=== PATIENT | male | born 1980 | race Caucasian/White ===

== ENCOUNTER 2020-05-23 14:38 | Emergency (ER) | payer OTHER, SELFPAY ==
[2020-05-23 14:40] VITALS: BP 160/98; PULSE 112; RESP 19; TEMP 36.6; O2SAT 97; BMI 31.8
--- NOTE | 2020-05-23 15:29 | ED.DCSUM_ITS ---
- ER Visit Summary Date of Service: 05/23/20 Chief Complaint: Fever History of Present Illness: The patient is a 40 M who presents with fever that began 5 days ago. Patient states his fever was up to 103 last night. Patient admits to some sharp pain in his chest. Patient states this occurs when he takes a deep breath. Patient admits to a cough but denies any sputum. Patient denies any nausea or vomiting. Patient states his fevers get better with Tylenol but then come back when the Tylenol wears off. Patient states he recently tested positive for COVID-19. Physical Examination: Vital signs are stable. Patient is afebrile. Patient is in no acute distress. Oral mucosa is pink and moist. Neck is supple. Trachea is midline. There is no JVD noted. Heart was regular rate and rhythm. Lungs are clear and equal bilaterally. Abdomen is soft. Bowel sounds are normal. There is no tenderness. There is no rebound or guarding noted. Skin is warm dry. Cranial nerves II through XII are intact. There are no focal motor or sensory deficits noted. Extremities are intact. There is no calf tenderness or edema. Test Results: Portable chest x-ray was obtained. There is 1 view. On my interpretation, there is early infiltrate in the left lung base. Bony thorax is normal. There is no cardiomegaly. Radiologist also interpreted the x-ray and agrees. CBC shows white blood cell count of 2.9. Comprehensive metabolic profile was essentially within normal limits. Emergency Department Course and Treatment: Patient was given albuterol inhaler here. Patient was instructed to continue using his inhaler as needed. Patient was instructed to follow-up with his primary care physician in 5 to 7 days. Patient understood and was agreeable with the plan. All questions were answered. Disposition: Discharge home Impression: COVID-19 pneumonia This note was generated with [employer] dictation software. It may contain incorrect words, spelling, and punctuation that were not noted in review of the chart prior to signing ED Disposition - Plan for ED Patient: Disposition: Home or Assisted Living Diagnosis: Pneumonia due to COVID-19 virus Instructions: Coronavirus Disease 2019 (COVID-19): Overview Referrals: Macario Sinha MD [Primary Care Provider] - 3-5 Days
--- NOTE | 2020-05-23 15:35 | RAD_ITS ---
STUDY: X-RAY CHEST REASON FOR EXAM: Male, 40 years old. PT WAS COVID POSITIVE ON SUNDAY. REPORTS CONSTANT FEVER, CHEST ACHING, COUGH TECHNIQUE: AP COMPARISON: None. FINDINGS: Lungs are underexpanded with patchy reticular densities in the bilateral lung bases. There is no demonstrated pleural abnormality. Normal size heart. Normal mediastinum and sid. Normal visualized pulmonary arteries. Normal visualized aortic arch and descending thoracic aorta. Normal visualized thoracic spine. Normal visualized ribs, clavicles, and shoulders. There is no demonstrated abnormality of the visualized soft tissue structures of the upper abdomen. RAD/Chest 1 View (Portable) IMPRESSION: Early infiltrate or atelectasis of the lung bases. Electronically Signed: Gilberto Schneider MD ([place]) at 16:04 EST , Service support ,
[2020-05-23 16:17] LABS: Absolute Lymphocyte Count 0.52 X10^3/uL (0.83-4.51); Absolute Neutrophil Count 2.2 X10^3/uL (2.0-7.7); Basophil# 0.01 X10^3/uL; Basophil% 0.3 % (0-1); Hemoglobin 14.6 g/dL (13.0-16.5); Lymphocyte # 0.52 X10^3/ul (4.0); Lymphocyte % 18.1 % (19-41); Mean Corp Hgb Conc 34.8 g/dL (32-36); Mean Corpuscular Hgb 29.5 pg (27.0-32.0); Mean Corpuscular Volume 84.8 fL (80-94); Mean Platelet Vol. 9.7 fl (6.2-12.0); Monocyte# 0.19 X10^3/uL; Monocyte% 6.6 % (0-10); NRBC Flagged by Analyzer 0 % (0-5); Neutrophil # 2.15 X10^3/uL (2.7-7.7); Neutrophil % 74.7 % (47-70); POSITIVE DIFFERENTIAL YES; Platelet Count 170 K/mm3 (150-450); RBC Distribution Width CV 13.1 % (11.6-14.6); RBC Distribution Width SD 40.5 fl (35.1-43.9); Red Blood Count 4.95 M/mm3 (4.6-6.2); White Blood Count 2.9 K/mm3 (4.4-11.0)
[2020-05-23 16:26] LABS: ALB/GLOB Ratio 0.9 RATIO (0.9-2.4); AST(SGOT) 56 U/L (15-37); Alanine Aminotransfer ALT/SGPT 72 U/L (16-61); Albumin, Serum 3.8 g/dL (3.2-5.0); Alkaline Phosphatase 45 U/L (45-117); Anion Gap 4 (5-15); BUN 10 mg/dL (7-18); BUN/Creat Ratio 9.4 RATIO (10-20); Calcium,Total 8.2 mg/dL (8.5-10.1); Chloride 104 mmol/L (98-107); Creatinine, Serum 1.06 mg/dL (0.70-1.30); EST Glomerular Filtration Rate 81 mL/min (>60); Est Glom Filt Rate - Afr Amer 98 mL/min (>60); Estimated Creatinine Clearance 78.97 ml/min; Globulin 4.1 g/dL (2.2-4.2); Glucose 97 mg/dL (74-106); Potassium 3.4 mmol/L (3.5-5.1); Protein, Total 7.9 g/dL (6.4-8.2); Sodium Level 138 mmol/L (136-145)
[2020-05-23 16:27] LABS: Differential Indicated SCAN CRITERIA MET
[2020-05-23 16:54] LABS: Differential Comment SCANNED
[2020-05-23] MEDS: Acetaminophen 500 MG Tablet 1000 MG PO (18:03)
[2020-05-23 18:10] VITALS: BP 143/86; PULSE 104; RESP 18; O2SAT 96
[2020-05-23 18:11] VITALS: BP 143/86; PULSE 104; RESP 18; O2SAT 96
[2020-05-24 13:29] LABS: Pathologist Review Reviewed
== END 2020-05-23 18:52 | disposition home or self-care (01) ==
PROVIDERS: Emergency Provider Emergency Medicine; PCP Family Medicine
DX: U07.1 COVID-19 (principal); J12.82 Pneumonia due to coronavirus disease 2019; I10 Essential (primary) hypertension
CPT/HCPCS: 36415; 71045; 80053; 85025; 99283

== ENCOUNTER 2020-05-27 09:12 | Inpatient (IN) | payer OTHER, SELFPAY ==
[2020-05-27] VITALS (13 sets, daily range): BP systolic 120–135; BP diastolic 72–86; PULSE 84–88; RESP 16–32; TEMP 36.1–37.8; O2SAT 85–92; BMI 31.6; BMI 32.2
--- NOTE | 2020-05-27 09:43 | RAD_ITS ---
STUDY: X-RAY CHEST REASON FOR EXAM: Male, 40 years old. DIAGNOSED WITH COVID ON SUNDAY, LEFT LUNG PNEUMONIA, SOB TECHNIQUE: Single AP portable view of the chest. COMPARISON: Comparison is made with prior study dated 05/23/2020. FINDINGS: EKG electrodes are seen. There now is evidence of bilateral pulmonary infiltrates at the lung bases. There is no demonstrated pleural abnormality. Normal size heart. Normal mediastinum and sid. Normal visualized pulmonary arteries. Normal visualized aortic arch and descending thoracic aorta. Normal visualized thoracic spine. Normal visualized ribs, clavicles, and shoulders. There is no demonstrated abnormality of the visualized soft tissue structures of the upper abdomen. RAD/Chest 1 View (Portable) IMPRESSION: New bilateral pulmonary infiltrates at the lung bases. Electronically Signed: Armando Villafuerte MD at 10:30 EST , Service support ,
--- NOTE | 2020-05-27 09:43 | EKG12_ITS ---
Test Reason : SOB Blood Pressure : / mmHG Vent. Rate : 084 BPM Atrial Rate : 084 BPM P-R Int : 184 ms QRS Dur : 102 ms QT Int : 382 ms P-R-T Axes : 007 039 002 degrees QTc Int : 451 ms Normal sinus rhythm Normal ECG Confirmed by GENNARO HAGER, MIGUEL ANGEL ([id number]), financial economist [employer] ([id number]) on 06/01/2020 10:41:35 AM Referred By: KENDRICK Confirmed By:MIGUEL ANGEL BURDICK MD
--- NOTE | 2020-05-27 09:49 | ED.VISSUMM ---
- ER Visit Summary Date of Service: 05/27/20 Chief Complaint: This of breath after being diagnosed with COVID-19 approximately 1 week ago. History of Present Illness: The patient is a 40 M history of hypertension. Diagnosed with COVID-19 1 week ago. Patient was seen in the emergency department diagnosed with Covid pneumonia over the weekend. States he is just getting more short of breath. Currently is on no medications for the Covid. Says his pulse ox at home is running 85% and his temperatures been between 101 - 103. Physical Examination: White male vital signs stable except pulse ox 85% on room air consistent with hypoxia. H EENT exam unremarkable. Neck nontender no lymphadenopathy. Lungs clear to auscultation bilaterally. Heart regular rhythm no murmur. Abdomen soft nontender normal bowel sounds no peritoneal signs. Extremities moves all 4. Calves nontender no edema no cords. Neurologically is awake alert with no focal motor deficits. Test Results: White count of 6. Hemoglobin 13. No bands chemistries unremarkable normal creatinine and gap. EKG normal sinus rhythm rate 84 no acute signs of RI or ischemia. Chest x-ray portable 1 view shows bilateral lower lobe infiltrates substantially worse appearing than the prior chest x-ray 4 days ago. I did go over test results with the patient. Emergency Department Course and Treatment: 40 yo male with COVID-19 pneumonitis now hypoxic. Treatment Plan: Repeat exam no change. Patient was treated with IV Decadron. Discussed patient with hospitalist prior to admission. Disposition: Admission Impression: COVID-19 pneumonitis Hypoxia History of hypertension This note was generated with [employer] dictation software. It may contain incorrect words, spelling, and punctuation that were not noted in review of the chart prior to signing ED Disposition - Plan for ED Patient: Referrals: Macario Sinha MD [Primary Care Provider] -
[2020-05-27 09:59] LABS: Absolute Neutrophil Count 6.1 X10^3/uL (2.0-7.7); Basophil# 0.01 X10^3/uL; Basophil% 0.1 % (0-1); Eosinophil# 0.01 X10^3/uL; Eosinophils% 0.1 % (0-5); Hematocrit 40.2 % (40-54); Hemoglobin 13.4 g/dL (13.0-16.5); Lymphocyte % 5.8 % (19-41); Mean Corp Hgb Conc 33.3 g/dL (32-36); Mean Corpuscular Hgb 28.1 pg (27.0-32.0); Mean Corpuscular Volume 84.3 fL (80-94); Mean Platelet Vol. 9.6 fl (6.2-12.0); Monocyte# 0.28 X10^3/uL; Monocyte% 4.1 % (0-10); NRBC Flagged by Analyzer 0 % (0-5); Neutrophil # 6.12 X10^3/uL (2.7-7.7); Neutrophil % 89.2 % (47-70); POSITIVE DIFFERENTIAL YES; Platelet Count 240 K/mm3 (150-450); RBC Distribution Width CV 13.2 % (11.6-14.6); RBC Distribution Width SD 41.1 fl (35.1-43.9); Red Blood Count 4.77 M/mm3 (4.6-6.2); White Blood Count 6.9 K/mm3 (4.4-11.0)
[2020-05-27 10:03] LABS: Differential Indicated SCAN CRITERIA MET
[2020-05-27 10:11] LABS: Anion Gap 6 (5-15); BUN 9 mg/dL (7-18); Calcium,Total 8.8 mg/dL (8.5-10.1); Chloride 101 mmol/L (98-107); EST Glomerular Filtration Rate 98 mL/min (>60); Est Glom Filt Rate - Afr Amer 118 mL/min (>60); Estimated Creatinine Clearance 89.53 ml/min; Glucose 112 mg/dL (74-106); Potassium 3.6 mmol/L (3.5-5.1); Sodium Level 135 mmol/L (136-145)
[2020-05-27 10:48] LABS: Differential Comment SCANNED
[2020-05-27] MEDS: dexAMETHasone 10 MG/ML Vial IV (11:26)
--- NOTE | 2020-05-27 13:19 | HP.PCM_ITS ---
Problem List (1) COVID-19 Status: Acute History of Present Illness Date of Admission: 05/27/20 Chief Complaint: shortness of breath The patient is a 40 year old M presents with shortness of breath. Became sick on the . Myalgias and fatigue. Primary care's office and was checked for COVID-19 and was positive. Patient presented on the to [facility] emergency room and was sent home. Patient just was feeling short of breath and presented again today where he was noted to be hypoxic. Patient received 10 mg of IV dexamethasone and admission requested. Patient is unsure of how he contracted COVID-19 but thinks it may been at work. Patient has family at home are currently under quarantine. [] Past Medical History Medical History: Medical History (Last Updated 05/27/20 @ 13:[address] Jasen Stallings, DO) HTN (hypertension) I10 Allergies erythromycin base Adverse Reaction (Verified 05/27/20 09:14) PT UNSURE OF REACTION Home Medications: Ambulatory Orders Medication Instructions Recorded Hydrochlorothiazide [Hctz] 25 mg PO DAILY 05/23/20 Metoprolol Tartrate [Lopressor 100 mg PO BID 05/23/20 (Beta Hugo)] Smoking Status: Never smoker - *Family History Maternal History Items: - - no asthma Review of Systems Constitutional: Reports: Chills, Fever. Denies: Anorexia Eyes: Denies: Blurred vision, Double vision HEENT: Denies: Head Aches, Sinus Congestion, Sinus Drainage Cardiovascular: Denies: Chest Pain, Palpitations Respiratory: Reports: Shortness of breath upon exertion. Denies: Cough, Shortness of breath at rest, Sputum production Gastrointestinal: Denies: Abdominal Pain, Nausea, Vomiting Genitourinary: Denies: Dysuria Musculoskeletal: Denies: Joint Pain, Joint Tenderness Skin: Denies: Rash, Wounds Neurological: Denies: Numbness, Tingling, Focal weakness Psychiatric: Denies: Anxiety, Depression Hematologic/ Lymphatic: Denies: Easy Bruising, Easy Bleeding, Hx of blood clot Comment: All review of systems were negative except as mentioned above in the history of present illness and the other review of systems. VTE Information - Inpt Only VTE Present on Admission: No VTE Mechan Device Prophylaxis: None VTE Pharm Prophylaxis ordered?: Yes Patient Problems: Active and Suspected Problems (Last Updated 05/27/20 @ 13:[address] Jasen Stallings, DO) COVID-19 (Acute) - Physical Exam Vitals/I&O's: Vital Signs Temp Pulse Resp BP Pulse Ox 36.3 C L 88 27 H 123/77 H 90 05/27/20 13:15 05/27/20 13:15 05/27/20 13:15 05/27/20 13:15 05/27/20 13:15 Oxygen Flow Rate (L/min) 2 Oxygen Delivery Method Nasal Cannula Weight: 83.461 kg Body Mass Index (BMI) 31.6 General: Alert, Cooperative, No apparent distress HEENT: Atraumatic, Normocephalic Oral: Moist Mucosa, No Gingival or Mucosal Lesions/ Ulcerations Neck: No Nodes, Thyroid Normal Size and Texture Lungs: - - LLL crackles. Cardiovascular: Regular rate, Regular Rhythm, Normal S1, Normal S2, No murmurs Abdomen: Bowel Sounds Present, Soft, Non Tender, Non-Distended, No Hepato- splenomegaly Extremities: No edema, No Calf Tenderness Skin: No rashes, No breakdown Musculoskeletal: No Tenderness to Palpation of Joints or Extremities, No Muscle Wasting Psych/Mental Status: Normal Affect, Appropriate Laboratory Results 05/27/20 09:51: WBC 6.9, RBC 4.77, Hgb 13.4, Hct 40.2, MCV 84.3, MCH 28.1, MCHC 33.3, RDW Std Deviation 41.1, RDW Coeff of Barbi 13.2, Plt Count 240, MPV 9.6, Immature Gran % (Auto) 0.700, Neut % (Auto) 89.2 H, Lymph % (Auto) 5.8 L, Dewey % (Auto) 4.1, Eos % (Auto) 0.1, Baso % (Auto) 0.1, Absolute Neuts (auto) 6.1, Absolute Lymphs (auto) 0.40 L, Nucleated RBC % 0, Differential Comment SCANNED 05/27/20 09:51: Sodium 135 L, Potassium 3.6, Chloride 101, Carbon Dioxide 28.0, Anion Gap 6, BUN 9, Creatinine 0.90, Estim Creat Clear Calc 89.53, Est GFR (MDRD) Af Amer 118, Est GFR (MDRD) Non-Af 98, BUN/Creatinine Ratio 10.0, Glucose 112 H, Calcium 8.8 Chest x-ray reviewed and shows some hazy left lower lobe infiltrate. Assessment/Plan All Active Problems (Last Updated 05/27/20 @ 13:[address] Jasen Stallings DO) COVID-19 (Acute) 1. Acute COVID-19 pneumonia: Time of onset was May 18. Patient will continue with dexamethasone for total of 10 days. Patient also be started on remdesivir. Chest x-ray is not as severe as I would suspect his symptoms are some will order a CT angiogram of the chest to evaluate for PE or secondary pneumonia. Patient does have evidence of either those and will treat those accordingly. 2. 2. Acute hypoxic respiratory insufficiency: Currently stable on 2 L. Wean oxygen as able. 3. Hypertension: Stable. Continue with his home medications. 4. VTE prophylaxis: High risk given COVID-19. Enoxaparin during his hospitalization. IMPROVE VTE score 0.5%. Refer to NIH guidelines (https://www.rjcuv16ygucmzhhjbstfpqqgli.nih.gov/adjunctive-therapy/antithromboti c-therapy/) and Chest guidelines (CHEST 2020; 158(3): 2385-7171). However patient does have evidence of pulmonary emboli, then would require proper anticoagulation. Inpatient E&M: 47972 Init Hosp L2
--- NOTE | 2020-05-27 13:41 | CT_ITS ---
STUDY: CTA CHEST REASON FOR EXAM: Male, 40 years old. COVID, PNEUMONIA RADIATION DOSAGE (If Supplied By Facility): CTDIvol = ( 13.70 ) mGy, DLP = ( 558.00 ) mGycm TECHNIQUE: The examination was performed with the intravenous administration of IV 100mL Isovue-370. Post-processing of the angiographic images was performed, with multiplanar reformation and 3D reconstruction. Individualized dose optimization techniques were used for this CT. COMPARISON: Comparison is made with prior chest radiograph done earlier in the day. FINDINGS: Normal enhancement of the main pulmonary artery and right and left pulmonary arteries. Normal enhancement of the bilateral peripheral pulmonary arteries. There is no demonstrated pulmonary embolism. Normal thoracic aorta and visualized great vessels. There is no demonstrated aortic dissection. Normal heart and pericardium. Normal mediastinum. Normal hilar regions. Normal visualized trachea and bronchi. The lungs are well expanded. There is evidence of a multifocal areas of groundglass appearance involving both lungs in a preferential lateral distribution. This is worse in the lower lobes. This is in keeping with the patient''s history of a Covid positive state. Normal pleura. Normal chest wall structures. Normal osseous structures. Normal visualized upper abdomen. CT/CTA Chest W/WO Contrast IMPRESSION: Multifocal bilateral groundglass infiltrates as described. This is in keeping with the patient''s history of Covid. Electronically Signed: Armando Villafuerte MD at 15:03 EST , Service support ,
[2020-05-27 14:44] LABS: Fibrinogen 652 mg/dl (203-444)
[2020-05-27 14:45] LABS: D-Dimer Quantitative (DVT/PE) 0.49 FEU/ug/m (0.27-0.49)
[2020-05-27 14:57] LABS: AST(SGOT) 95 U/L (15-37); Alanine Aminotransfer ALT/SGPT 138 U/L (16-61); Albumin, Serum 3.3 g/dL (3.2-5.0); Alkaline Phosphatase 47 U/L (45-117); Bilirubin, Direct 0.14 mg/dL (0.00-0.30); Protein, Total 8.3 g/dL (6.4-8.2)
[2020-05-27] MEDS: 0.9% Saline Lock 10 ML Syringe IV (15:15)
[2020-05-27] MEDS: Metoprolol Tartrate 100 MG Tablet PO (20:00)
[2020-05-28] VITALS (7 sets, daily range): BP systolic 115–136; BP diastolic 72–80; PULSE 63–85; RESP 18; TEMP 36.7–37.2; O2SAT 92–94
[2020-05-28 05:26] LABS: Hematocrit 39.7 % (40-54); Hemoglobin 13.4 g/dL (13.0-16.5); Mean Corp Hgb Conc 33.8 g/dL (32-36); Mean Corpuscular Hgb 28.9 pg (27.0-32.0); Mean Corpuscular Volume 85.7 fL (80-94); Mean Platelet Vol. 9.3 fl (6.2-12.0); Platelet Count 281 K/mm3 (150-450); RBC Distribution Width CV 13.5 % (11.6-14.6); RBC Distribution Width SD 42.5 fl (35.1-43.9); Red Blood Count 4.63 M/mm3 (4.6-6.2); White Blood Count 5.6 K/mm3 (4.4-11.0)
[2020-05-28 05:54] LABS: ALB/GLOB Ratio 0.7 RATIO (0.9-2.4); AST(SGOT) 99 U/L (15-37); Alanine Aminotransfer ALT/SGPT 147 U/L (16-61); Albumin, Serum 3.1 g/dL (3.2-5.0); Alkaline Phosphatase 47 U/L (45-117); Anion Gap 9 (5-15); BUN 20 mg/dL (7-18); BUN/Creat Ratio 23.4 RATIO (10-20); Calcium,Total 8.7 mg/dL (8.5-10.1); Chloride 99 mmol/L (98-107); Creatinine, Serum 0.86 mg/dL (0.70-1.30); EST Glomerular Filtration Rate 104 mL/min (>60); Est Glom Filt Rate - Afr Amer 126 mL/min (>60); Globulin 4.3 g/dL (2.2-4.2); Glucose 109 mg/dL (74-106); Potassium 3.8 mmol/L (3.5-5.1); Protein, Total 7.4 g/dL (6.4-8.2); Sodium Level 135 mmol/L (136-145)
[2020-05-28] MEDS: dexAMETHasone 4 MG Tablet 6 MG PO (11:30)
[2020-05-28] MEDS: Enoxaparin 40 MG/0.4 ML Syringe SC (11:31)
[2020-05-28] MEDS: hydroCHLOROthiazide 25 MG Tablet PO (11:31)
[2020-05-28] MEDS: Metoprolol Tartrate 100 MG Tablet PO ×2 (11:31→20:20)
--- NOTE | 2020-05-28 11:39 | CASEMGMT ---
RN CM Assessment Note Introduced role of CM to patient via phone to room. Demographics, PCP verified. Pt is awake and able to participate in assessment. Patient states his is also positive and they are able to quarantine at home. They have friends, family who can bring supplies/groceries if needed. COVID TESTING: @ PCP office Diagnosis: COVID 19 PCP: Dr. Macario Sinha Specialists: none Insurance: [employer]. No current insurance card available. Call to who gave ID and GRP. called to [facility] in [place]. Preferred [facility]acy: [facility] Pres[facility] Benefit: yes LNOK: Living Arrangements: Lives independently. No care needs Tranportation: drives DME: none. [employer]. (Call to [employer] and they are able to take [employer] insurance) HHC: none SNF: none Patient DC Goals: DC Plan: anticipate home on discharge. Will need oxygen testing on ra and with exertion prior to dc. SEE GREEN SHEET CM available for discharge planning coordination. Contact CM for any concerns/needs that may arise. Mark LATHAMN RN ACM
[2020-05-28] MEDS: 0.9% Saline Lock 10 ML Syringe IV (11:41)
--- NOTE | 2020-05-28 15:22 | PCM.PN.HOSP ---
Patient Problems: Active and Suspected Problems (Last Updated 05/27/20 @ 13:[address] Jasen Stallings, DO) COVID-19 (Acute) Reason for Visit: COVID 19 Subjective: increased oxygen requirements. Vitals/I&O's: Vital Signs Temp Pulse Resp BP Pulse Ox 36.7 C 85 18 136/77 H 94 05/28/20 11:00 05/28/20 11:31 05/28/20 11:00 05/28/20 11:00 05/28/20 15:20 Oxygen Flow Rate (L/min) 10 Oxygen Delivery Method Nasal Cannula Weight: 85.2 kg Body Mass Index (BMI) 32.2 Intake and Output for Last 24 Hours 05/26/20 05/27/20 05/28/20 23:59 23:59 23:59 Intake Total 650 / 650 Balance 650 / 650 General: Alert, No apparent distress HEENT: Atraumatic, Normocephalic Oral: Moist Mucosa, No Gingival or Mucosal Lesions/ Ulcerations Neck: No Nodes, Thyroid Normal Size and Texture Lungs: Normal air movement, No rhonchi, No wheeze, - - bibasilar crackles Cardiovascular: Regular rate, Regular Rhythm, Normal S1, Normal S2, No murmurs Abdomen: Bowel Sounds Present, Soft, Non Tender, Non-Distended Extremities: No edema, No Calf Tenderness Skin: No rashes, No breakdown Psych/Mental Status: Normal Affect, Appropriate Laboratory Results 05/28/20 05:06: WBC 5.6, RBC 4.63, Hgb 13.4, Hct 39.7 L, MCV 85.7, MCH 28.9, MCHC 33.8, RDW Std Deviation 42.5, RDW Coeff of Barbi 13.5, Plt Count 281, MPV 9.3 05/28/20 05:06: Sodium 135 L, Potassium 3.8, Chloride 99, Carbon Dioxide 27.0, Anion Gap 9, BUN 20 H, Creatinine 0.86, Estim Creat Clear Calc 93.70, Est GFR (MDRD) Af Amer 126, Est GFR (MDRD) Non-Af 104, BUN/Creatinine Ratio 23.4 H, Glucose 109 H, Calcium 8.7, Total Bilirubin 0.60, AST 99 H, ALT 147 H, Alkaline Phosphatase 47, Total Protein 7.4, Albumin 3.1 L, Globulin 4.3 H, Albumin/Globulin Ratio 0.7 L Current Medications Acetaminophen (Acetaminophen 325 Mg Tablet) 650 mg PO Q6H PRN PRN PRN Reason: Pain Score 1-10/Temp > 100.7 F Albuterol Sulfate (Albuterol Sulfate 8 Gm Inhaler (60 Puffs)) 2 puff INHALATION Q4H PRN PRN PRN Reason: SHORTNESS OF BREATH Dexamethasone (Dexamethasone 4 Mg Tablet) 6 mg PO DAILY [facility] Last Admin: 05/28/20 11:30 Dose: 6 mg Documented by: Enoxaparin Sodium (Enoxaparin 40 Mg/0.4 Ml Syringe) 40 mg SC DAILY [facility] Last Admin: 05/28/20 11:31 Dose: 40 mg Documented by: Hydrochlorothiazide (Hydrochlorothiazide 25 Mg Tablet) 25 mg PO DAILY [facility] Last Admin: 05/28/20 11:31 Dose: 25 mg Documented by: Remdesivir 100 mg/ Sodium (Chloride) 250 mls @ 125 mls/hr IV DAILY [facility] Stop: 05/31/20 11:59 Last Admin: 05/28/20 11:31 Dose: 125 mls/hr Documented by: Sodium Chloride () 250 mls @ 15 mls/hr IV .[id number] PRN PRN Reason: Saline Flush Azithromycin 500 mg/ Dextrose 255 mls @ 250 mls/hr IV Q24 [facility] Azithromycin 500 mg/ Dextrose 255 mls @ 250 mls/hr IV X1 ONE Stop: 05/28/20 16:15 Ceftriaxone Sodium (Rocephin) 1 gm in 50 mls @ 100 mls/hr IV X1 ONE Stop: 05/28/20 15:43 Ceftriaxone Sodium (Rocephin) 1 gm in 50 mls @ 100 mls/hr IV Q24 [facility] Ibuprofen (Ibuprofen 400 Mg Tablet) 400 mg PO Q4H PRN PRN PRN Reason: Pain Score 1-10/Temp > 100.7 F Metoprolol Tartrate (Metoprolol Tartrate 100 Mg Tablet) 100 mg PO BID [facility] Last Admin: 05/28/20 11:31 Dose: 100 mg Documented by: Ondansetron HCl (Ondansetron 4 Mg/2 Ml Vial) 4 mg IV Q8H PRN PRN PRN Reason: NAUSEA/VOMITING Sodium Chloride (0.9% Saline Lock 10 Ml Syringe) 10 - 40 ml IV UD PRN PRN Reason: SALINE FLUSH Last Admin: 05/28/20 11:41 Dose: 10 ml Documented by: STROKE Vital Signs/Narrative: Vital Signs Pulse Pulse Ox 05/28/20 15:20 94 05/28/20 11:31 85 Medical Necessity - Tobacco Use Smoking Status: Never smoker Assessment/Plan All Active Problems (Last Updated 05/27/20 @ 13:[address] Jasen Stallings, DO) COVID-19 (Acute) 1. Acute COVID-19 pneumonia: Time of onset was May 18. Patient will continue with dexamethasone for total of 10 days. Patient also be started on remdesivir. Chest x-ray is not as severe as I would suspect his symptoms are some will order a CT angiogram of the chest to evaluate for PE or secondary pneumonia. Patient does have evidence of either those and will treat those accordingly. 2. Acute hypoxic respiratory failure: Worse overall. Check Cx, Ag. Start empiric abx given consolidation in bases, which is likely COVID-19, but cannot rule out 2dary bacterial pneumonia. 3. Hypertension: Stable. Continue with his home medications. 4. VTE prophylaxis: High risk given COVID-19. Enoxaparin during his hospitalization. IMPROVE VTE score 0.5%. Refer to NIH guidelines (https://www.tjufx16slrhwkgyzzywexttdin.nih.gov/adjunctive-therapy/antithrombotic-therapy/) and Chest guidelines (CHEST 2020; 158(3): 0301-6257). However patient does have evidence of pulmonary emboli, then would require proper anticoagulation. Patient asked me and gave me permission to contact his , Debbie. I notified her of his status. Answered all questions. Inpatient E&M: 73192 Subs Hosp L2
[2020-05-28] MEDS: Ceftriaxone 1 GM/50 ML BAG IV (15:43)
[2020-05-28] MEDS: Albuterol Sulfate 8 gm Inhaler (60 puffs) 2 PUFF INHALATION (20:24)
[2020-05-29] VITALS (8 sets, daily range): BP systolic 121–131; BP diastolic 70–81; PULSE 58–83; RESP 17–20; TEMP 36.6–36.9; O2SAT 93–95
[2020-05-29 06:04] LABS: Absolute Lymphocyte Count 0.64 X10^3/uL (0.83-4.51); Absolute Neutrophil Count 5.4 X10^3/uL (2.0-7.7); Basophil# 0.01 X10^3/uL; Basophil% 0.2 % (0-1); Hemoglobin 13.5 g/dL (13.0-16.5); Lymphocyte # 0.64 X10^3/ul (4.0); Lymphocyte % 9.8 % (19-41); Mean Corp Hgb Conc 32.9 g/dL (32-36); Mean Corpuscular Hgb 28.3 pg (27.0-32.0); Mean Platelet Vol. 9.4 fl (6.2-12.0); Monocyte# 0.42 X10^3/uL; Monocyte% 6.4 % (0-10); NRBC Flagged by Analyzer 0 % (0-5); Neutrophil % 82.5 % (47-70); Platelet Count 384 K/mm3 (150-450); RBC Distribution Width CV 13.3 % (11.6-14.6); RBC Distribution Width SD 42.3 fl (35.1-43.9); Red Blood Count 4.77 M/mm3 (4.6-6.2); White Blood Count 6.5 K/mm3 (4.4-11.0)
[2020-05-29 06:38] LABS: ALB/GLOB Ratio 0.7 RATIO (0.9-2.4); AST(SGOT) 117 U/L (15-37); Alanine Aminotransfer ALT/SGPT 210 U/L (16-61); Albumin, Serum 3.1 g/dL (3.2-5.0); Alkaline Phosphatase 49 U/L (45-117); Anion Gap 6 (5-15); BUN 24 mg/dL (7-18); BUN/Creat Ratio 27.2 RATIO (10-20); Calcium,Total 8.8 mg/dL (8.5-10.1); Chloride 101 mmol/L (98-107); Creatinine, Serum 0.88 mg/dL (0.70-1.30); EST Glomerular Filtration Rate 101 mL/min (>60); Est Glom Filt Rate - Afr Amer 122 mL/min (>60); Estimated Creatinine Clearance 91.57 ml/min; Globulin 4.4 g/dL (2.2-4.2); Glucose 114 mg/dL (74-106); Protein, Total 7.5 g/dL (6.4-8.2); Sodium Level 136 mmol/L (136-145)
[2020-05-29] MEDS: dexAMETHasone 4 MG Tablet 6 MG PO (09:26)
[2020-05-29] MEDS: hydroCHLOROthiazide 25 MG Tablet PO (09:26)
[2020-05-29] MEDS: Metoprolol Tartrate 100 MG Tablet PO (09:27)
[2020-05-29] MEDS: Enoxaparin 40 MG/0.4 ML Syringe SC (09:27)
[2020-05-29] MEDS: Ceftriaxone 1 GM/50 ML BAG IV (09:31)
--- NOTE | 2020-05-29 11:08 | PN_ITS ---
Patient Problems: Active and Suspected Problems (Last Updated 05/27/20 @ 13:[address] Jasen Stallings, DO) COVID-19 (Acute) Reason for Visit: COVID 19 Subjective: Feels better overall. Still with RAMOS. coughing up some phlegm. Vitals/I&O's: Vital Signs Temp Pulse Resp BP Pulse Ox 36.7 C 83 18 131/81 H 93 05/29/20 09:20 05/29/20 09:27 05/29/20 09:20 05/29/20 09:20 05/29/20 10:41 Oxygen Flow Rate (L/min) 8 Oxygen Delivery Method Nasal Cannula Weight: 85.2 kg Body Mass Index (BMI) 32.2 Intake and Output for Last 24 Hours 05/27/20 05/28/20 05/29/20 23:59 23:59 23:59 Intake Total 650 / 650 555 / 555 50 / 50 Balance 650 / 650 555 / 555 50 / 50 General: Alert, No apparent distress, - - no conversational dyspnea. no respiratory distress. HEENT: Atraumatic, Normocephalic Oral: Moist Mucosa, No Gingival or Mucosal Lesions/ Ulcerations Neck: No Nodes, Thyroid Normal Size and Texture Lungs: Clear to auscultation, Normal air movement Cardiovascular: Regular rate, Regular Rhythm, Normal S1, Normal S2, No murmurs Abdomen: Bowel Sounds Present, Soft, Non Tender, Non-Distended, No Hepato- splenomegaly Extremities: No edema, No Calf Tenderness Skin: No rashes, No breakdown Psych/Mental Status: Normal Affect, Appropriate Laboratory Results 05/29/20 05:40: WBC 6.5, RBC 4.77, Hgb 13.5, Hct 41.0, MCV 86.0, MCH 28.3, MCHC 32.9, RDW Std Deviation 42.3, RDW Coeff of Barbi 13.3, Plt Count 384, MPV 9.4, Immature Gran % (Auto) 1.100 H, Neut % (Auto) 82.5 H, Lymph % (Auto) 9.8 L, [place] % (Auto) 6.4, Eos % (Auto) 0.0, Baso % (Auto) 0.2, Absolute Neuts (auto) 5.4, Absolute Lymphs (auto) 0.64 L, Nucleated RBC % 0 05/29/20 05:40: Sodium 136, Potassium 4.0, Chloride 101, Carbon Dioxide 29.0, Anion Gap 6, BUN 24 H, Creatinine 0.88, Estim Creat Clear Calc 91.57, Est GFR (MDRD) Af Amer 122, Est GFR (MDRD) Non-Af 101, BUN/Creatinine Ratio 27.2 H, Glucose 114 H, Calcium 8.8, Total Bilirubin 0.70, AST 117 H, ALT 210 H, Alkaline Phosphatase 49, Total Protein 7.5, Albumin 3.1 L, Globulin 4.4 H, Albumin/Globulin Ratio 0.7 L Current Medications Acetaminophen (Acetaminophen 325 Mg Tablet) 650 mg PO Q6H PRN PRN PRN Reason: Pain Score 1-10/Temp > 100.7 F Albuterol Sulfate (Albuterol Sulfate 8 Gm Inhaler (60 Puffs)) 2 puff INHALATION Q4H PRN PRN PRN Reason: SHORTNESS OF BREATH Last Admin: 05/28/20 20:24 Dose: 2 puff Documented by: Dexamethasone (Dexamethasone 4 Mg Tablet) 6 mg PO DAILY [facility] Last Admin: 05/29/20 09:26 Dose: 6 mg Documented by: Enoxaparin Sodium (Enoxaparin 40 Mg/0.4 Ml Syringe) 40 mg SC DAILY [facility] Last Admin: 05/29/20 09:27 Dose: 40 mg Documented by: Hydrochlorothiazide (Hydrochlorothiazide 25 Mg Tablet) 25 mg PO DAILY [facility] Last Admin: 05/29/20 09:26 Dose: 25 mg Documented by: Remdesivir 100 mg/ Sodium (Chloride) 250 mls @ 125 mls/hr IV DAILY [facility] Stop: 05/31/20 11:59 Last Infusion: 05/28/20 13:31 Dose: Infused Documented by: Sodium Chloride () 250 mls @ 15 mls/hr IV .[id number] PRN PRN Reason: Saline Flush Azithromycin 500 mg/ Dextrose 255 mls @ 250 mls/hr IV Q24 [facility] Last Admin: 05/29/20 10:27 Dose: 250 mls/hr Documented by: Ceftriaxone Sodium (Rocephin) 1 gm in 50 mls @ 100 mls/hr IV Q24 [facility] Last Infusion: 05/29/20 10:26 Dose: Infused Documented by: Ibuprofen (Ibuprofen 400 Mg Tablet) 400 mg PO Q4H PRN PRN PRN Reason: Pain Score 1-10/Temp > 100.7 F Metoprolol Tartrate (Metoprolol Tartrate 100 Mg Tablet) 100 mg PO BID [facility] Last Admin: 05/29/20 09:27 Dose: 100 mg Documented by: Ondansetron HCl (Ondansetron 4 Mg/2 Ml Vial) 4 mg IV Q8H PRN PRN PRN Reason: NAUSEA/VOMITING Sodium Chloride (0.9% Saline Lock 10 Ml Syringe) 10 - 40 ml IV UD PRN PRN Reason: SALINE FLUSH Last Admin: 05/28/20 11:41 Dose: 10 ml Documented by: STROKE Vital Signs/Narrative: Vital Signs Temp Pulse Resp BP Pulse Ox 05/29/20 10:41 93 05/29/20 09:27 83 05/29/20 09:25 93 05/29/20 09:20 36.7 C 83 18 131/81 H 95 Medical Necessity - Tobacco Use Smoking Status: Never smoker Assessment/Plan All Active Problems (Last Updated 05/27/20 @ 13:[address] Jasen Stallings, DO) COVID-19 (Acute) 1. Acute COVID-19 pneumonia: * Time of onset was May 18. * Patient will continue with dexamethasone for total of 10 days, through 06/05. * Patient also be started on remdesivir. 2. Acute hypoxic respiratory failure: * Stable on 10l. * 05/28: Start empiric abx given consolidation in bases, which is likely COVID- 19, but cannot rule out 2dary bacterial pneumonia. Follow up cultures, if negative, then likely will dc abx. 3. Hypertension: Stable. Continue with his home medications. 4. VTE prophylaxis: * High risk given COVID-19. Enoxaparin during his hospitalization. IMPROVE VTE score 0.5%, therefore, anticoagulation will not be needed upon discharge. Refer to NIH guidelines (https://www.dzrtx99lxxncnubaxcsumgfwnm.nih.gov/adjunctive-therapy/antithrombo tic-therapy/) and Chest guidelines (CHEST 2020; 158(3): 2710-9661). However patient does have evidence of pulmonary emboli, then would require proper anticoagulation. Greater than 35 minutes of which greater than for percent of time discussed with the patient about COVID-19, the likelihood that he should remain stable though the possibility of worsening is still there. Plan is to continue with ongoing treatment. Anticipated hospitalization will be least for 3 more days. Explained to him by the criteria for discharge about him being stable, requiring less than 5 L of oxygen and overall improved. Explained the possibility of long-term side effects, including headache and anosmia. Inpatient E&M: [id number] [facility] Hosp L3
[2020-05-30] VITALS (8 sets, daily range): BP systolic 102–128; BP diastolic 70–77; PULSE 53–67; RESP 17–18; TEMP 36.3–36.9; O2SAT 92–95
[2020-05-30 07:11] LABS: ALB/GLOB Ratio 0.6 RATIO (0.9-2.4); AST(SGOT) 60 U/L (15-37); Alanine Aminotransfer ALT/SGPT 193 U/L (16-61); Alkaline Phosphatase 47 U/L (45-117); Anion Gap 7 (5-15); BUN 26 mg/dL (7-18); BUN/Creat Ratio 31.3 RATIO (10-20); Calcium,Total 8.7 mg/dL (8.5-10.1); Chloride 106 mmol/L (98-107); Creatinine, Serum 0.83 mg/dL (0.70-1.30); EST Glomerular Filtration Rate 108 mL/min (>60); Est Glom Filt Rate - Afr Amer 131 mL/min (>60); Estimated Creatinine Clearance 97.08 ml/min; Globulin 4.8 g/dL (2.2-4.2); Glucose 100 mg/dL (74-106); Potassium 3.5 mmol/L (3.5-5.1); Protein, Total 7.8 g/dL (6.4-8.2); Sodium Level 138 mmol/L (136-145)
[2020-05-30] MEDS: Metoprolol Tartrate 100 MG Tablet PO ×2 (08:21→20:16)
[2020-05-30] MEDS: Furosemide 40 MG Tablet PO (08:21)
[2020-05-30] MEDS: hydroCHLOROthiazide 25 MG Tablet PO (08:21)
[2020-05-30] MEDS: dexAMETHasone 4 MG Tablet 6 MG PO (08:21)
[2020-05-30] MEDS: Enoxaparin 40 MG/0.4 ML Syringe SC (08:21)
[2020-05-30] MEDS: Ceftriaxone 1 GM/50 ML BAG IV (08:22)
--- NOTE | 2020-05-30 10:03 | PN_ITS ---
Patient Problems: Active and Suspected Problems (Last Updated 05/27/20 @ 13:[address] Jasen Stallings, DO) COVID-19 (Acute) Reason for Visit: COVID 19 Subjective: Breathing well. Depressed about the slow pace of recovery. Vitals/I&O's: Vital Signs Temp Pulse Resp BP Pulse Ox 36.8 C 61 18 123/75 H 92 05/30/20 08:19 05/30/20 08:21 05/30/20 08:19 05/30/20 08:19 05/30/20 08:19 Oxygen Flow Rate (L/min) 8 Oxygen Delivery Method Nasal Cannula Weight: 85.2 kg Body Mass Index (BMI) 32.2 Intake and Output for Last 24 Hours 05/28/20 05/29/20 05/30/20 23:59 23:59 23:59 Intake Total 555 / 555 555 / 555 50 / 50 Balance 555 / 555 555 / 555 50 / 50 General: Alert, No apparent distress, - - no respiratory distress. no conversational dyspnea. HEENT: Atraumatic, Normocephalic Oral: Moist Mucosa, No Gingival or Mucosal Lesions/ Ulcerations Neck: No Nodes, Thyroid Normal Size and Texture Lungs: Normal air movement, - - bibasilar crackles. Cardiovascular: Regular rate, Regular Rhythm, Normal S1, Normal S2, No murmurs Abdomen: Bowel Sounds Present, Soft, Non Tender, Non-Distended Extremities: No edema, No Calf Tenderness Skin: No rashes, No breakdown Psych/Mental Status: Appropriate, Flat Affect Laboratory Results 05/30/20 05:30: Sodium 138, Potassium 3.5, Chloride 106, Carbon Dioxide 25.0, Anion Gap 7, BUN 26 H, Creatinine 0.83, Estim Creat Clear Calc 97.08, Est GFR (MDRD) Af Amer 131, Est GFR (MDRD) Non-Af 108, BUN/Creatinine Ratio 31.3 H, Glucose 100, Calcium 8.7, Total Bilirubin 0.80, AST 60 H, ALT 193 H, Alkaline Phosphatase 47, Total Protein 7.8, Albumin 3.0 L, Globulin 4.8 H, Albumin/Globulin Ratio 0.6 L Current Medications Acetaminophen (Acetaminophen 325 Mg Tablet) 650 mg PO Q6H PRN PRN PRN Reason: Pain Score 1-10/Temp > 100.7 F Albuterol Sulfate (Albuterol Sulfate 8 Gm Inhaler (60 Puffs)) 2 puff INHALATION Q4H PRN PRN PRN Reason: SHORTNESS OF BREATH Last Admin: 05/28/20 20:24 Dose: 2 puff Documented by: Dexamethasone (Dexamethasone 4 Mg Tablet) 6 mg PO DAILY [facility] Stop: 06/05/20 23:55 Last Admin: 05/30/20 08:21 Dose: 6 mg Documented by: Enoxaparin Sodium (Enoxaparin 40 Mg/0.4 Ml Syringe) 40 mg SC DAILY [facility] Last Admin: 05/30/20 08:21 Dose: 40 mg Documented by: Hydrochlorothiazide (Hydrochlorothiazide 25 Mg Tablet) 25 mg PO DAILY [facility] Last Admin: 05/30/20 08:21 Dose: 25 mg Documented by: Remdesivir 100 mg/ Sodium (Chloride) 250 mls @ 125 mls/hr IV DAILY [facility] Stop: 05/31/20 11:59 Last Admin: 05/30/20 10:01 Dose: 125 mls/hr Documented by: Sodium Chloride () 250 mls @ 15 mls/hr IV .[id number] PRN PRN Reason: Saline Flush Azithromycin 500 mg/ Dextrose 255 mls @ 250 mls/hr IV Q24 [facility] Last Infusion: 05/29/20 12:01 Dose: Infused Documented by: Ceftriaxone Sodium (Rocephin) 1 gm in 50 mls @ 100 mls/hr IV Q24 [facility] Last Infusion: 05/30/20 09:07 Dose: Infused Documented by: Ibuprofen (Ibuprofen 400 Mg Tablet) 400 mg PO Q4H PRN PRN PRN Reason: Pain Score 1-10/Temp > 100.7 F Metoprolol Tartrate (Metoprolol Tartrate 100 Mg Tablet) 100 mg PO BID [facility] Last Admin: 05/30/20 08:21 Dose: 100 mg Documented by: Ondansetron HCl (Ondansetron 4 Mg/2 Ml Vial) 4 mg IV Q8H PRN PRN PRN Reason: NAUSEA/VOMITING Sodium Chloride (0.9% Saline Lock 10 Ml Syringe) 10 - 40 ml IV UD PRN PRN Reason: SALINE FLUSH Last Admin: 05/28/20 11:41 Dose: 10 ml Documented by: STROKE Vital Signs/Narrative: Vital Signs Temp Pulse Resp BP Pulse Ox 05/30/20 08:21 61 05/30/20 08:19 36.8 C 61 18 123/75 H 92 05/30/20 07:35 93 Medical Necessity - Tobacco Use Smoking Status: Never smoker Assessment/Plan All Active Problems (Last Updated 05/27/20 @ 13:[address] Jasen Stallings, DO) COVID-19 (Acute) 1. Acute COVID-19 pneumonia: * Time of onset was May 18. Quarantine through 06/09/2020 * Patient will continue with dexamethasone for total of 10 days, through 06/05. * Remdesivir through 05/31 2. Acute hypoxic respiratory failure: * Slightly improved, now on 8liters (down from 10) * 05/28: Start empiric abx given consolidation in bases, which is likely COVID- 19, but cannot rule out 2dary bacterial pneumonia. Follow up cultures, if negative, then likely will dc abx. * 05/30: furosemide challenge 3. Transaminitis: * 06/08 COVID 19 * stable * continue to monitor 4. Hypertension: Stable. Continue with his home medications. 5. VTE prophylaxis: * High risk given COVID-19. Enoxaparin during his hospitalization. IMPROVE VTE score 0.5%, therefore, anticoagulation will not be needed upon discharge. Refer to NIH guidelines (https://www.ilrrs42wxfiiycedfdqsrfedxe.nih.gov/adjunctive-therapy/antithrombo tic-therapy/) and Chest guidelines (CHEST 2020; 158(3): 3400-0752). However patient does have evidence of pulmonary emboli, then would require proper anticoagulation. Reassurance provided to patient. Explained anticipated slow recovery with COVID 19. Disposition will depend on decreased oxygen requirements (down to 4-5 liters) and overall improvement. Likely no discharge for at least another 48- 72h. Inpatient E&M: [id number] Subs Hosp L2
--- NOTE | 2020-05-30 20:35 | PCS.PANDOC ---
PANDEMIC DOCUMENTATION INITIATED: Date: 05/27/20 Time:
[2020-05-31] VITALS (7 sets, daily range): BP systolic 109–132; BP diastolic 62–85; PULSE 60–79; RESP 18–20; TEMP 36.3–37.2; O2SAT 90–94
[2020-05-31] MEDS: Albuterol Sulfate 8 gm Inhaler (60 puffs) 2 PUFF INHALATION (02:55)
[2020-05-31] MEDS: dexAMETHasone 4 MG Tablet 6 MG PO (08:35)
[2020-05-31] MEDS: Enoxaparin 40 MG/0.4 ML Syringe SC (08:35)
[2020-05-31] MEDS: hydroCHLOROthiazide 25 MG Tablet PO (08:35)
[2020-05-31] MEDS: Metoprolol Tartrate 100 MG Tablet PO ×2 (08:35→20:51)
[2020-05-31 08:38] LABS: Absolute Neutrophil Count 9.8 X10^3/uL (2.0-7.7); Basophil# 0.02 X10^3/uL; Basophil% 0.2 % (0-1); Eosinophil# 0.02 X10^3/uL; Eosinophils% 0.2 % (0-5); Hematocrit 43.9 % (40-54); Hemoglobin 14.6 g/dL (13.0-16.5); Lymphocyte % 8.6 % (19-41); Mean Corp Hgb Conc 33.3 g/dL (32-36); Mean Corpuscular Hgb 28.1 pg (27.0-32.0); Mean Corpuscular Volume 84.6 fL (80-94); Monocyte% 5.1 % (0-10); NRBC Flagged by Analyzer 0 % (0-5); Neutrophil # 9.82 X10^3/uL (2.7-7.7); Neutrophil % 84.2 % (47-70); Platelet Count 522 K/mm3 (150-450); RBC Distribution Width SD 40.3 fl (35.1-43.9); Red Blood Count 5.19 M/mm3 (4.6-6.2); White Blood Count 11.7 K/mm3 (4.4-11.0)
[2020-05-31 08:59] LABS: ALB/GLOB Ratio 0.7 RATIO (0.9-2.4); AST(SGOT) 37 U/L (15-37); Alanine Aminotransfer ALT/SGPT 148 U/L (16-61); Albumin, Serum 3.1 g/dL (3.2-5.0); Alkaline Phosphatase 50 U/L (45-117); Anion Gap 11 (5-15); BUN 23 mg/dL (7-18); BUN/Creat Ratio 25.7 RATIO (10-20); Calcium,Total 8.5 mg/dL (8.5-10.1); Chloride 101 mmol/L (98-107); EST Glomerular Filtration Rate 99 mL/min (>60); Est Glom Filt Rate - Afr Amer 120 mL/min (>60); Estimated Creatinine Clearance 89.53 ml/min; Globulin 4.7 g/dL (2.2-4.2); Glucose 97 mg/dL (74-106); Potassium 3.4 mmol/L (3.5-5.1); Protein, Total 7.8 g/dL (6.4-8.2); Sodium Level 136 mmol/L (136-145)
[2020-05-31] MEDS: Ceftriaxone 1 GM/50 ML BAG IV (10:23)
--- NOTE | 2020-05-31 11:44 | PCM.PN.HOSP ---
Patient Problems: Active and Suspected Problems (Last Updated 05/27/20 @ 13:[address] Jasen Stallings, DO) COVID-19 (Acute) Subjective: Patient seen and examined. He had no active complaints. However he is quite worried and anxious because he does not seem to be recovering fast enough. He still on 8 L of oxygen. Review of systems otherwise negative. Vitals/I&O's: Vital Signs Temp Pulse Resp BP Pulse Ox 98.9 F 79 19 H 117/70 92 05/31/20 08:40 05/31/20 08:40 05/31/20 08:40 05/31/20 08:40 05/31/20 08:40 Oxygen Flow Rate (L/min) 8 Oxygen Delivery Method Nasal Cannula Weight: 187 lb 13.341 oz Body Mass Index (BMI) 32.2 Intake and Output for Last 24 Hours 05/29/20 05/30/20 05/31/20 23:59 23:59 23:59 Intake Total 555 / 555 2355 / 2355 955 / 955 Balance 555 / 555 2355 / 2355 955 / 955 General: Alert, Oriented x3, Cooperative, No apparent distress HEENT: Atraumatic, PERRLA, EOMI, Normocephalic Oral: Moist Mucosa Neck: Supple, No JVD, Negative Carotid Bruits Lungs: Clear to auscultation, Normal air movement, - - on 8L of oxygen Cardiovascular: Regular rate, Regular Rhythm, Normal S1, Normal S2, No murmurs Abdomen: Bowel Sounds Present, Soft, Non Tender, Non-Distended, No Hepato-splenomegaly Extremities: No clubbing, No cyanosis, No edema, Capillary Refill Less than 3 Seconds Skin: No rashes, No breakdown Musculoskeletal: No Tenderness to Palpation of Joints or Extremities Lymphatic: No Cervical, Supraclavicular, or Inguinal Adenopathy Neurological: Cranial nerves II-XII grossly intact, Neuro grossly intact, Motor Exam 5/5 strength throughout Psych/Mental Status: Anxious, Alert and oriented to time, place, person, mood and affect Microbiology Past 72 Hours 05/30/20 17:10 Urine, Clean Catch Legionella Antigen - Final 05/30/20 17:10 Urine, Clean Catch Streptococcus pneumoniae Antigen (M - Final Laboratory Results 05/31/20 08:05: WBC 11.7 H, RBC 5.19, Hgb 14.6, Hct 43.9, MCV 84.6, MCH 28.1, MCHC 33.3, RDW Std Deviation 40.3, RDW Coeff of Barbi 13.0, Plt Count 522 H, MPV 9.0, Immature Gran % (Auto) 1.700 H, Neut % (Auto) 84.2 H, Lymph % (Auto) 8.6 L, [place] % (Auto) 5.1, Eos % (Auto) 0.2, Baso % (Auto) 0.2, Absolute Neuts (auto) 9.8 H, Absolute Lymphs (auto) 1.00, Nucleated RBC % 0 05/31/20 08:05: Sodium 136, Potassium 3.4 L, Chloride 101, Carbon Dioxide 24.0, Anion Gap 11, BUN 23 H, Creatinine 0.90, Estim Creat Clear Calc 89.53, Est GFR (MDRD) Af Amer 120, Est GFR (MDRD) Non-Af 99, BUN/Creatinine Ratio 25.7 H, Glucose 97, Calcium 8.5, Total Bilirubin 0.90, AST 37, ALT 148 H, Alkaline Phosphatase 50, Total Protein 7.8, Albumin 3.1 L, Globulin 4.7 H, Albumin/Globulin Ratio 0.7 L Diagnostic Data Chest X-Ray 05/27/20 09:43 IMPRESSION: New bilateral pulmonary infiltrates at the lung bases. Electronically Signed: Armando Villafuerte MD at 10:30 EST , Service support , Chest CTA 05/27/20 13:41 IMPRESSION: Multifocal bilateral groundglass infiltrates as described. This is in keeping with the patient''s history of Covid. Electronically Signed: Armando Villafuerte MD at 15:03 EST , Service support , Current Medications Acetaminophen (Acetaminophen 325 Mg Tablet) 650 mg PO Q6H PRN PRN PRN Reason: Pain Score 1-10/Temp > 100.7 F Albuterol Sulfate (Albuterol Sulfate 8 Gm Inhaler (60 Puffs)) 2 puff INHALATION Q4H PRN PRN PRN Reason: SHORTNESS OF BREATH Last Admin: 05/31/20 02:55 Dose: 2 puff Documented by: Dexamethasone (Dexamethasone 4 Mg Tablet) 6 mg PO DAILY [facility] Stop: 06/05/20 23:55 Last Admin: 05/31/20 08:35 Dose: 6 mg Documented by: Enoxaparin Sodium (Enoxaparin 40 Mg/0.4 Ml Syringe) 40 mg SC DAILY [facility] Last Admin: 05/31/20 08:35 Dose: 40 mg Documented by: Hydrochlorothiazide (Hydrochlorothiazide 25 Mg Tablet) 25 mg PO DAILY [facility] Last Admin: 05/31/20 08:35 Dose: 25 mg Documented by: Remdesivir 100 mg/ Sodium (Chloride) 250 mls @ 125 mls/hr IV DAILY [facility] Stop: 05/31/20 11:59 Last Admin: 05/31/20 11:15 Dose: 125 mls/hr Documented by: Sodium Chloride () 250 mls @ 15 mls/hr IV .[id number] PRN PRN Reason: Saline Flush Azithromycin 500 mg/ Dextrose 255 mls @ 250 mls/hr IV Q24 [facility] Last Infusion: 05/31/20 09:44 Dose: Infused Documented by: Ceftriaxone Sodium (Rocephin) 1 gm in 50 mls @ 100 mls/hr IV Q24 [facility] Last Infusion: 05/31/20 11:11 Dose: Infused Documented by: Ibuprofen (Ibuprofen 400 Mg Tablet) 400 mg PO Q4H PRN PRN PRN Reason: Pain Score 1-10/Temp > 100.7 F Metoprolol Tartrate (Metoprolol Tartrate 100 Mg Tablet) 100 mg PO BID [facility] Last Admin: 05/31/20 08:35 Dose: 100 mg Documented by: Ondansetron HCl (Ondansetron 4 Mg/2 Ml Vial) 4 mg IV Q8H PRN PRN PRN Reason: NAUSEA/VOMITING Sodium Chloride (0.9% Saline Lock 10 Ml Syringe) 10 - 40 ml IV UD PRN PRN Reason: SALINE FLUSH Last Admin: 05/28/20 11:41 Dose: 10 ml Documented by: STROKE Vital Signs/Narrative: Vital Signs Temp Pulse Resp BP Pulse Ox 05/31/20 08:40 98.9 F 79 19 H 117/70 92 05/31/20 08:35 64 Medical Necessity - Tobacco Use Smoking Status: Never smoker Assessment/Plan All Active Problems (Last Updated 05/27/20 @ 13:[address] Jasen Stallings, DO) COVID-19 (Acute) # COVID 19 pneumonia diagnosed May 18. on dexamethasone. on 8L of oxygen by nasal canula titrate oxygen to maintain sats >90% breathing treatment with bronchodilators continue remdesivir on ceftriaxone and azithromycin respiratory cultures pending. Urine for strep and letionella negative. #Acute hypoxic respiratory failure due to COVID 19 pneumonia as above # Transaminitis: ALT trending down. AST has normalized. #Hypokalemia: K is 3.4. Will replace and monitor DVT prophylaxis; lovenox Inpatient E&M: [id number] Subs Hosp L2
[2020-05-31] MEDS: 0.9% Saline Lock 10 ML Syringe IV (20:52)
[2020-05-31] MEDS: Zolpidem Tartrate 5 MG Tablet PO (21:55)
[2020-06-01] VITALS (22 sets, daily range): BP systolic 124–144; BP diastolic 78–93; PULSE 65–96; RESP 13–26; TEMP 36.5–37.1; O2SAT 88–96
[2020-06-01 05:27] LABS: Absolute Lymphocyte Count 1.18 X10^3/uL (0.83-4.51); Absolute Neutrophil Count 9.5 X10^3/uL (2.0-7.7); Basophil# 0.04 X10^3/uL; Basophil% 0.3 % (0-1); Eosinophil# 0.09 X10^3/uL; Eosinophils% 0.8 % (0-5); Hematocrit 44.1 % (40-54); Hemoglobin 14.8 g/dL (13.0-16.5); Lymphocyte # 1.18 X10^3/ul (4.0); Mean Corp Hgb Conc 33.6 g/dL (32-36); Mean Corpuscular Hgb 28.4 pg (27.0-32.0); Mean Corpuscular Volume 84.6 fL (80-94); Monocyte# 0.59 X10^3/uL; NRBC Flagged by Analyzer 0 % (0-5); Neutrophil # 9.45 X10^3/uL (2.7-7.7); Neutrophil % 79.9 % (47-70); Platelet Count 564 K/mm3 (150-450); RBC Distribution Width CV 12.8 % (11.6-14.6); Red Blood Count 5.21 M/mm3 (4.6-6.2); White Blood Count 11.8 K/mm3 (4.4-11.0)
[2020-06-01 05:52] LABS: ALB/GLOB Ratio 0.6 RATIO (0.9-2.4); AST(SGOT) 28 U/L (15-37); Alanine Aminotransfer ALT/SGPT 110 U/L (16-61); Albumin, Serum 2.8 g/dL (3.2-5.0); Alkaline Phosphatase 48 U/L (45-117); Anion Gap 7 (5-15); BUN 18 mg/dL (7-18); BUN/Creat Ratio 20.7 RATIO (10-20); Calcium,Total 8.7 mg/dL (8.5-10.1); Chloride 105 mmol/L (98-107); Creatinine, Serum 0.87 mg/dL (0.70-1.30); EST Glomerular Filtration Rate 102 mL/min (>60); Est Glom Filt Rate - Afr Amer 123 mL/min (>60); Estimated Creatinine Clearance 92.62 ml/min; Globulin 4.5 g/dL (2.2-4.2); Glucose 92 mg/dL (74-106); Potassium 3.8 mmol/L (3.5-5.1); Protein, Total 7.3 g/dL (6.4-8.2); Sodium Level 137 mmol/L (136-145)
--- NOTE | 2020-06-01 07:43 | PN_ITS ---
Patient Problems: Active and Suspected Problems (Last Updated 05/27/20 @ 13:[address] Jasen Stallings, DO) COVID-19 (Acute) Subjective: Patient seen and examined. He had an uneventful night. Patient required Ambien last night to help with his anxiety and to help him sleep. His oxygen requirement is up to 15 L today. Intake and output not accurate as output has not been measured. Patient however does not look clinically fluid overloaded. We will however give a dose of Lasix to see. Review of systems otherwise negative. Vitals/I&O's: Vital Signs Temp Pulse Resp BP Pulse Ox 98.7 F 68 18 144/78 H 94 06/01/20 04:21 06/01/20 04:21 06/01/20 04:21 06/01/20 04:06/01/20 04:21 Oxygen Flow Rate (L/min) 9 Oxygen Delivery Method Nasal Cannula Weight: 187 lb 13.341 oz Body Mass Index (BMI) 32.2 Intake and Output for Last 24 Hours 05/30/20 05/31/20 06/01/20 23:59 23:59 23:59 Intake Total 2355 / 2355 2054 Balance 2355 / 2355 2054 General: Alert, Oriented x3, Cooperative, No apparent distress HEENT: Atraumatic, PERRLA, EOMI, Normocephalic Oral: Moist Mucosa Neck: Supple, No JVD, Negative Carotid Bruits Lungs: Clear to auscultation, Normal air movement, - - on 15L of oxygen Cardiovascular: Regular rate, Regular Rhythm, Normal S1, Normal S2, No murmurs Abdomen: Bowel Sounds Present, Soft, Non Tender, Non-Distended, No Hepato- splenomegaly Extremities: No clubbing, No cyanosis, No edema, Capillary Refill Less than 3 Seconds Skin: No rashes, No breakdown Musculoskeletal: No Tenderness to Palpation of Joints or Extremities Lymphatic: No Cervical, Supraclavicular, or Inguinal Adenopathy Neurological: Cranial nerves II-XII grossly intact, Neuro grossly intact, Motor Exam 5/5 strength throughout Psych/Mental Status: Anxious, Alert and oriented to time, place, person, mood and affect Microbiology Past 72 Hours 05/31/20 10:20 Sputum, Expectorated/Coughed Gram Stain - Final 05/30/20 17:10 Urine, Clean Catch Legionella Antigen - Final 05/30/20 17:10 Urine, Clean Catch Streptococcus pneumoniae Antigen (M - Final Laboratory Results 05/31/20 08:05: WBC 11.7 H, RBC 5.19, Hgb 14.6, Hct 43.9, MCV 84.6, MCH 28.1, MCHC 33.3, RDW Std Deviation 40.3, RDW Coeff of Barbi 13.0, Plt Count 522 H, MPV 9.0, Immature Gran % (Auto) 1.700 H, Neut % (Auto) 84.2 H, Lymph % (Auto) 8.6 L, [place] % (Auto) 5.1, Eos % (Auto) 0.2, Baso % (Auto) 0.2, Absolute Neuts (auto) 9.8 H, Absolute Lymphs (auto) 1.00, Nucleated RBC % 0 05/31/20 08:05: Sodium 136, Potassium 3.4 L, Chloride 101, Carbon Dioxide 24.0, Anion Gap 11, BUN 23 H, Creatinine 0.90, Estim Creat Clear Calc 89.53, Est GFR (MDRD) Af Amer 120, Est GFR (MDRD) Non-Af 99, BUN/Creatinine Ratio 25.7 H, Glucose 97, Calcium 8.5, Total Bilirubin 0.90, AST 37, ALT 148 H, Alkaline Phosphatase 50, Total Protein 7.8, Albumin 3.1 L, Globulin 4.7 H, Albumin/Globulin Ratio 0.7 L 06/01/20 05:06: WBC 11.8 H, RBC 5.21, Hgb 14.8, Hct 44.1, MCV 84.6, MCH 28.4, MCHC 33.6, RDW Std Deviation 40.0, RDW Coeff of Barbi 12.8, Plt Count 564 H, MPV 9.0, Immature Gran % (Auto) 4.000 H, Neut % (Auto) 79.9 H, Lymph % (Auto) 10.0 L , [place] % (Auto) 5.0, Eos % (Auto) 0.8, Baso % (Auto) 0.3, Absolute Neuts (auto) 9.5 H, Absolute Lymphs (auto) 1.18, Nucleated RBC % 0 06/01/20 05:06: Sodium 137, Potassium 3.8, Chloride 105, Carbon Dioxide 25.0, Anion Gap 7, BUN 18, Creatinine 0.87, Estim Creat Clear Calc 92.62, Est GFR (MDRD) Af Amer 123, Est GFR (MDRD) Non-Af 102, BUN/Creatinine Ratio 20.7 H, Glucose 92, Calcium 8.7, Total Bilirubin 0.80, AST 28, ALT 110 H, Alkaline Phosphatase 48, Total Protein 7.3, Albumin 2.8 L, Globulin 4.5 H, Albumin/Globulin Ratio 0.6 L Current Medications Acetaminophen (Acetaminophen 325 Mg Tablet) 650 mg PO Q6H PRN PRN PRN Reason: Pain Score 1-10/Temp > 100.7 F Albuterol Sulfate (Albuterol Sulfate 8 Gm Inhaler (60 Puffs)) 2 puff INHALATION Q4H PRN PRN PRN Reason: SHORTNESS OF BREATH Last Admin: 05/31/20 02:55 Dose: 2 puff Documented by: Dexamethasone (Dexamethasone 4 Mg Tablet) 6 mg PO DAILY [facility] Stop: 06/05/20 23:55 Last Admin: 05/31/20 08:35 Dose: 6 mg Documented by: Enoxaparin Sodium (Enoxaparin 40 Mg/0.4 Ml Syringe) 40 mg SC DAILY [facility] Last Admin: 05/31/20 08:35 Dose: 40 mg Documented by: Hydrochlorothiazide (Hydrochlorothiazide 25 Mg Tablet) 25 mg PO DAILY [facility] Last Admin: 05/31/20 08:35 Dose: 25 mg Documented by: Sodium Chloride () 250 mls @ 15 mls/hr IV .[id number] PRN PRN Reason: Saline Flush Azithromycin 500 mg/ Dextrose 255 mls @ 250 mls/hr IV Q24 [facility] Last Infusion: 05/31/20 09:44 Dose: Infused Documented by: Ceftriaxone Sodium (Rocephin) 1 gm in 50 mls @ 100 mls/hr IV Q24 [facility] Last Infusion: 05/31/20 11:11 Dose: Infused Documented by: Ibuprofen (Ibuprofen 400 Mg Tablet) 400 mg PO Q4H PRN PRN PRN Reason: Pain Score 1-10/Temp > 100.7 F Metoprolol Tartrate (Metoprolol Tartrate 100 Mg Tablet) 100 mg PO BID [facility] Last Admin: 05/31/20 20:51 Dose: 100 mg Documented by: Ondansetron HCl (Ondansetron 4 Mg/2 Ml Vial) 4 mg IV Q8H PRN PRN PRN Reason: NAUSEA/VOMITING Sodium Chloride (0.9% Saline Lock 10 Ml Syringe) 10 - 40 ml IV UD PRN PRN Reason: SALINE FLUSH Last Admin: 05/31/20 20:52 Dose: 10 ml Documented by: STROKE Vital Signs/Narrative: Vital Signs Temp Pulse Resp BP Pulse Ox 06/01/20 04:21 98.7 F 68 18 144/78 H 94 Medical Necessity - Tobacco Use Smoking Status: Never smoker Assessment/Plan All Active Problems (Last Updated 05/27/20 @ 13:[address] Jasen Stallings, DO) COVID-19 (Acute) # COVID 19 pneumonia * diagnosed May 18. * on dexamethasone. now on 15L of oxygen by nasal canula * titrate oxygen to maintain sats >90% * breathing treatment with bronchodilators * continue remdesivir * on ceftriaxone and azithromycin * respiratory cultures still pending. Urine for strep and letionella negative. * #Acute hypoxic respiratory failure due to COVID 19 pneumonia * now on 15L of oxygen. * will give one dose of IV lasix 40mg * consult pulmo * breathing treatment with bronchodilators * # Transaminitis: ALT trending down. AST has normalized. #Hypokalemia: resolved. K is 3.8 today. DVT prophylaxis; lovenox 40mg daily Inpatient E&M: [id number] [facility] Hosp L3
--- NOTE | 2020-06-01 08:56 | CPS ---
patient is on Airvo
--- NOTE | 2020-06-01 08:59 | CON.PCM_ITS ---
Reason for Consult Date of Consultation: 06/01/20 Reason for Consultation: Acute hypoxemic respiratory failure secondary to COVID- 19 pneumonia History of Present Illness: The patient is a 40-year-old male, with a history as outlined below, who initially presented to the emergency department on May 27 with fatigue, shortness of breath and nonproductive cough. The patient was also noted to be hypoxemic as well. The patient had been evaluated in the emergency department on May 23 after presenting with a fever. The patient was given an albuterol inhaler and discharged home at that time. The patient had been diagnosed with COVID-19 approximately 1 week prior to his presentation to the hospital. On presentation to the emergency department, the patient was noted to be afebrile and hemodynamically stable. He was, however, hypoxemic, saturating 85% on room air. Laboratory evaluation revealed a normal white blood cell count. D-dimer was within normal limits at 0.49. Chemistry profile was unrevealing. A CTA chest was obtained which failed to demonstrate evidence of pulmonary embolism. Bilateral groundglass changes were noted. The patient was started on antimicrobials, Decadron and remdesivir. He was subsequently admitted to the coronavirus cohort unit for further management. To date, the patient supplemental oxygen requirement has been steadily increasing over the course of his hospitalization. The patient has now completed his treatment course of remdesivir. He remains on Decadron and antimicrobials. Past Medical History Medical History: Medical History (Last Updated 05/27/20 @ 13:[address] Jasen Stallings, DO) HTN (hypertension) I10 Allergies erythromycin base Adverse Reaction (Verified 05/27/20 09:14) PT UNSURE OF REACTION Home Medications: Ambulatory Orders Medication Instructions Recorded Hydrochlorothiazide [Hctz] 25 mg PO DAILY 05/23/20 Metoprolol Tartrate [Lopressor 100 mg PO BID 05/23/20 (Beta Hugo)] Smoking Status: Never smoker - *Family History Maternal History Items: - - no asthma Review of Systems Constitutional: Reports: Fever, Malaise, Fatigue Eyes: Denies: Blurred vision, Double vision HEENT: Denies: Head Aches, Sinus Congestion, Sinus Drainage Cardiovascular: Denies: Chest Pain, Palpitations Respiratory: Reports: Cough, Shortness of Breath Gastrointestinal: Denies: Abdominal Pain, Nausea, Vomiting Genitourinary: Denies: Dysuria Musculoskeletal: Denies: Joint Pain, Joint Tenderness Skin: Denies: Rash, Wounds Neurological: Denies: Numbness, Tingling, Focal weakness Psychiatric: Reports: Anxiety. Denies: Depression, Homicidal Ideations, Suicidal Ideations Hematologic/ Lymphatic: Denies: Easy Bruising, Easy Bleeding, Hx of blood clot Patient Problems: Active and Suspected Problems (Last Updated 05/27/20 @ 13:[address] Jasen Stallings, DO) COVID-19 (Acute) Objective: The patient's most recent lab work, culture data and imaging studies have all been personally reviewed. Sputum culture appears to be normal respiratory stacy. Strep and urine Legionella antigens were negative. - Physical Exam Vitals/I&O's: Vital Signs Temp Pulse Resp BP Pulse Ox 98.7 F 68 18 144/78 H 94 06/01/20 04:21 06/01/20 04:21 06/01/20 04:21 06/01/20 04:06/01/20 04:21 Oxygen Flow Rate (L/min) 9 Oxygen Delivery Method Nasal Cannula Weight: 187 lb 13.341 oz Body Mass Index (BMI) 32.2 Intake and Output for Last 24 Hours 05/30/20 05/31/20 06/01/20 23:59 23:59 23:59 Intake Total 5 / 2355 2054 Balance 2355 / 2355 2054 General: Alert, Cooperative, - - Appears somewhat anxious. HEENT: Atraumatic, PERRLA, Normocephalic Oral: No Gingival or Mucosal Lesions/ Ulcerations Neck: Supple, No Nodes, Trachea Midline Lungs: No rhonchi, No wheeze, No rales, Diminished, - - Speaking in complete sentences. No accessory muscle use. Cardiovascular: Regular rate, Regular Rhythm Abdomen: Bowel Sounds Present, Soft, Non Tender Extremities: No clubbing, No cyanosis, No edema Skin: No breakdown Musculoskeletal: No Tenderness to Palpation of Joints or Extremities, No Muscle Wasting Lymphatic: No Cervical, Supraclavicular, or Inguinal Adenopathy Neurological: Cranial nerves II-XII grossly intact, Neuro grossly intact Psych/Mental Status: Anxious Labs (Last 48 Hours) 05/31/20 05/31/20 06/01/20 08:05 08:05 05:06 WBC 11.7 H 11.8 H RBC 5.19 5.21 Hgb 14.6 14.8 Hct 43.9 44.1 MCV 84.6 84.6 MCH 28.1 28.4 MCHC 33.3 33.6 RDW Std Deviation 40.3 40.0 RDW Coeff of Barbi 13.0 12.8 Plt Count 522 H 564 H MPV 9.0 9.0 Immature Gran % (Auto) 1.700 H 4.000 H Neut % (Auto) 84.2 H 79.9 H Lymph % (Auto) 8.6 L 10.0 L [place] % (Auto) 5.1 5.0 Eos % (Auto) 0.2 0.8 Baso % (Auto) 0.2 0.3 Absolute Neuts (auto) 9.8 H 9.5 H Absolute Lymphs (auto) 1.00 1.18 Nucleated RBC % 0 0 Sodium 136 Potassium 3.4 L Chloride 101 Carbon Dioxide 24.0 Anion Gap 11 BUN 23 H Creatinine 0.90 Estim Creat Clear Calc 89.53 Est GFR (MDRD) Af Amer 120 Est GFR (MDRD) Non-Af 99 BUN/Creatinine Ratio 25.7 H Glucose 97 Calcium 8.5 Total Bilirubin 0.90 AST 37 ALT 148 H Alkaline Phosphatase 50 Total Protein 7.8 Albumin 3.1 L Globulin 4.7 H Albumin/Globulin Ratio 0.7 L 06/01/20 05:06 WBC RBC Hgb Hct MCV MCH MCHC RDW Std Deviation RDW Coeff of Barbi Plt Count MPV Immature Gran % (Auto) Neut % (Auto) Lymph % (Auto) [place] % (Auto) Eos % (Auto) Baso % (Auto) Absolute Neuts (auto) Absolute Lymphs (auto) Nucleated RBC % Sodium 137 Potassium 3.8 Chloride 105 Carbon Dioxide 25.0 Anion Gap 7 BUN 18 Creatinine 0.87 Estim Creat Clear Calc 92.62 Est GFR (MDRD) Af Amer 123 Est GFR (MDRD) Non-Af 102 BUN/Creatinine Ratio 20.7 H Glucose 92 Calcium 8.7 Total Bilirubin 0.80 AST 28 ALT 110 H Alkaline Phosphatase 48 Total Protein 7.3 Albumin 2.8 L Globulin 4.5 H Albumin/Globulin Ratio 0.6 L Microbiology 05/31/20 10:20 Sputum, Expectorated/Coughed Gram Stain - Final 05/31/20 10:20 Sputum, Expectorated/Coughed Respiratory Culture - Preliminar y Appears to be normal respiratory stacy. Further studies to follow. 05/30/20 17:10 Urine, Clean Catch Legionella Antigen - Final 05/30/20 17:10 Urine, Clean Catch Streptococcus pneumoniae Antigen (M - Final Clinical Impression(s) from Imaging Studies Chest X-Ray 05/27/20 09:43 IMPRESSION: New bilateral pulmonary infiltrates at the lung bases. Electronically Signed: Armando Villafuerte MD at 10:30 EST , Service support , Chest CTA 05/27/20 13:41 IMPRESSION: Multifocal bilateral groundglass infiltrates as described. This is in keeping with the patient''s history of Covid. Electronically Signed: Armando Villafuerte MD at 15:03 EST , Service support , Current Medications Acetaminophen (Acetaminophen 325 Mg Tablet) 650 mg PO Q6H PRN PRN PRN Reason: Pain Score 1-10/Temp > 100.7 F Albuterol Sulfate (Albuterol Sulfate 8 Gm Inhaler (60 Puffs)) 2 puff INHALATION Q4H PRN PRN PRN Reason: SHORTNESS OF BREATH Last Admin: 05/31/20 02:55 Dose: 2 puff Documented by: Dexamethasone (Dexamethasone 4 Mg Tablet) 6 mg PO DAILY [facility] Stop: 06/05/20 23:55 Last Admin: 05/31/20 08:35 Dose: 6 mg Documented by: Enoxaparin Sodium (Enoxaparin 40 Mg/0.4 Ml Syringe) 40 mg SC DAILY [facility] Last Admin: 05/31/20 08:35 Dose: 40 mg Documented by: Hydrochlorothiazide (Hydrochlorothiazide 25 Mg Tablet) 25 mg PO DAILY [facility] Last Admin: 05/31/20 08:35 Dose: 25 mg Documented by: Sodium Chloride () 250 mls @ 15 mls/hr IV .[id number] PRN PRN Reason: Saline Flush Azithromycin 500 mg/ Dextrose 255 mls @ 250 mls/hr IV Q24 [facility] Last Infusion: 05/31/20 09:44 Dose: Infused Documented by: Ceftriaxone Sodium (Rocephin) 1 gm in 50 mls @ 100 mls/hr IV Q24 [facility] Last Infusion: 05/31/20 11:11 Dose: Infused Documented by: Ibuprofen (Ibuprofen 400 Mg Tablet) 400 mg PO Q4H PRN PRN PRN Reason: Pain Score 1-10/Temp > 100.7 F Metoprolol Tartrate (Metoprolol Tartrate 100 Mg Tablet) 100 mg PO BID [facility] Last Admin: 05/31/20 20:51 Dose: 100 mg Documented by: Ondansetron HCl (Ondansetron 4 Mg/2 Ml Vial) 4 mg IV Q8H PRN PRN PRN Reason: NAUSEA/VOMITING Sodium Chloride (0.9% Saline Lock 10 Ml Syringe) 10 - 40 ml IV UD PRN PRN Reason: SALINE FLUSH Last Admin: 05/31/20 20:52 Dose: 10 ml Documented by: Assessment/Plan All Active Problems (Last Updated 05/27/20 @ 13:[address] Jasen Stallings, ) COVID-19 (Acute) RECOMMENDATIONS: 1. Okay to transition patient to Airvo heated high flow and wean FiO2 to maintain oxygen saturations at or above 90%. 2. Continue Decadron to complete 10-day treatment course. 3. Recheck D-dimer, procalcitonin and BNP. 4. Obtain repeat chest x-ray. 5. Attempt gentle diuresis as tolerated by hemodynamics and renal function. 6. Consider initiation of anxiolytic therapy. IMPRESSIONS: 1. Acute hypoxemic respiratory failure secondary to COVID-19 pneumonia The patient has had increasing oxygen requirements over the course of his hospitalization. He has already completed a treatment course of remdesivir and will remain on Decadron with plans to complete 10 days of total treatment. Plan to continue supplemental oxygen to maintain saturations at or above 90%. I do suspect that the patient has underlying anxiety which is contributing to his sh ortness of breath and increased work of breathing. Attempts at gentle diuresis can be undertaken as tolerated by hemodynamics and renal function. 2. Elevated transaminases Unclear etiology. However, transaminases are improving. 3. Obesity/hypertension/anxiety Complicates care, management, recovery and prognosis. Continue home medications as indicated. CODE status: Discussed CODE status at length including difference between FULL code, DNR-CCA and DNR-CC status. Following discussions about the differences in these status, patient requested FULL CODE STATUS. Advanced Care Planning Face to Face Time: 12 minutes. This note was generated with [employer] software. It may contain incorrect words, spelling, and punctuation that were not noted in checking the note before signing. Inpatient E&M: 49292 Init Hosp L3 Procedures: 15977 Advncd Care Plan 30 Min
[2020-06-01 09:27] LABS: D-Dimer Quantitative (DVT/PE) 0.33 FEU/ug/m (0.27-0.49)
[2020-06-01 09:36] LABS: BNP,B-Type NATRIURETIC PEPTIDE 5.7 pg/mL (0-100)
[2020-06-01] MEDS: Furosemide 40 MG/4 ML Vial IV (09:54)
[2020-06-01] MEDS: 0.9% Saline Lock 10 ML Syringe IV ×2 (09:54→11:56)
[2020-06-01] MEDS: dexAMETHasone 4 MG Tablet 6 MG PO (09:57)
[2020-06-01] MEDS: Metoprolol Tartrate 100 MG Tablet PO ×2 (09:57→21:50)
[2020-06-01] MEDS: hydroCHLOROthiazide 25 MG Tablet PO (09:58)
[2020-06-01] MEDS: Enoxaparin 40 MG/0.4 ML Syringe SC (09:58)
[2020-06-01] MEDS: Albuterol Sulfate 8 gm Inhaler (60 puffs) 2 PUFF INHALATION (09:59)
[2020-06-01 10:31] LABS: Procalcitonin 0.05 ng/mL (0.00-0.09)
[2020-06-01] MEDS: LORazepam 2 MG/ML Syringe 1 MG IV (11:55)
--- NOTE | 2020-06-01 13:04 | CASEMGMT ---
DHARMESH CM Note: patient is still listed as self pay. Call to [employer] and let them know oatient's had a new card and information had been given to [employer]. She will contact and attempt to gain current insurance information. Mark AGUERO RN ACM
--- NOTE | 2020-06-01 14:25 | RAD_ITS ---
STUDY: X-RAY CHEST REASON FOR EXAM: Male, 40 years old. COVID +, INCREASE SOB TECHNIQUE: Single AP portable view of the chest. COMPARISON: Comparison is made with prior study dated 05/27/2020. FINDINGS: EKG electrodes are seen. Since prior study, there has been progressive bilateral pulmonary infiltrates. There is no demonstrated pleural abnormality. Normal size heart. Normal mediastinum and sid. Normal visualized pulmonary arteries. Normal visualized aortic arch and descending thoracic aorta. Normal visualized thoracic spine. Normal visualized ribs, clavicles, and shoulders. There is no demonstrated abnormality of the visualized soft tissue structures of the upper abdomen. RAD/Chest 1 View (Portable) IMPRESSION: Progressive bilateral pulmonary infiltrates. Electronically Signed: Armando Villafuerte MD at 14:49 EST , Service support ,
--- NOTE | 2020-06-01 16:05 | PCM.HP.ID ---
Problem List (1) COVID-19 Status: Acute Reason for Consult: covid Consulted by: Dr. Padilla History of Present Illness: The patient is a 40 year old M presented with 2 weeks of fever, chills, headache, aches, diarrhea. Thinks he caught covid at work. Family at home is feeling fine and now out of quarantine. Had worsening chest pain and dyspnea, came to ED, CT showed no PE. Started on dex and remdesivir. Feeling a little better today. Full ROS performed and neg except as noted above. - Medical History Surgical History: reviewed Allergies/Adverse Reactions: Allergies erythromycin base Adverse Reaction (Verified 05/27/20 09:14) PT UNSURE OF REACTION Home Medications: Ambulatory Orders Medication Instructions Recorded Hydrochlorothiazide [Hctz] 25 mg PO DAILY 05/23/20 Metoprolol Tartrate [Lopressor 100 mg PO BID 05/23/20 (Beta Hugo)] - Social History Tobacco Use: non-smoker Vital Signs Temp Pulse Resp BP Pulse Ox 97.7 F L 72 13 127/87 H 95 06/01/20 12:55 06/01/20 16:03 06/01/20 16:03 06/01/20 12:55 06/01/20 16:03 Oxygen Flow Rate (L/min) 9 Oxygen Delivery Method Bi-pap Weight: 85.2 kg Body Mass Index (BMI) 32.2 Microbiology Past 72 Hours 05/31/20 10:20 Gram Stain - Final Sputum, Expectorated/Coughed Respiratory Culture - Preliminary Appears to be normal respiratory stacy. Further studies to follow. 05/30/20 17:10 Legionella Antigen - Final Urine, Clean Catch Streptococcus pneumoniae Antigen (M - Final Laboratory Tests Past 24 Hrs 06/01/20 06/01/20 06/01/20 05:06 05:06 05:06 WBC 11.8 H RBC 5.21 Hgb 14.8 Hct 44.1 MCV 84.6 MCH 28.4 MCHC 33.6 RDW Std Deviation 40.0 RDW Coeff of Barbi 12.8 Plt Count 564 H MPV 9.0 Immature Gran % (Auto) 4.000 H Neut % (Auto) 79.9 H Lymph % (Auto) 10.0 L [place] % (Auto) 5.0 Eos % (Auto) 0.8 Baso % (Auto) 0.3 Absolute Neuts (auto) 9.5 H Absolute Lymphs (auto) 1.18 Nucleated RBC % 0 D-Dimer Quant (PE/DVT) 0.33 Sodium 137 Potassium 3.8 Chloride 105 Carbon Dioxide 25.0 Anion Gap 7 BUN 18 Creatinine 0.87 Estim Creat Clear Calc 92.62 Est GFR (MDRD) Af Amer 123 Est GFR (MDRD) Non-Af 102 BUN/Creatinine Ratio 20.7 H Glucose 92 Calcium 8.7 Total Bilirubin 0.80 AST 28 ALT 110 H Alkaline Phosphatase 48 B-Natriuretic Peptide Total Protein 7.3 Albumin 2.8 L Globulin 4.5 H Albumin/Globulin Ratio 0.6 L Procalcitonin 06/01/20 06/01/20 05:06 10:00 WBC RBC Hgb Hct MCV MCH MCHC RDW Std Deviation RDW Coeff of Barbi Plt Count MPV Immature Gran % (Auto) Neut % (Auto) Lymph % (Auto) [place] % (Auto) Eos % (Auto) Baso % (Auto) Absolute Neuts (auto) Absolute Lymphs (auto) Nucleated RBC % D-Dimer Quant (PE/DVT) Sodium Potassium Chloride Carbon Dioxide Anion Gap BUN Creatinine Estim Creat Clear Calc Est GFR (MDRD) Af Amer Est GFR (MDRD) Non-Af BUN/Creatinine Ratio Glucose Calcium Total Bilirubin AST ALT Alkaline Phosphatase B-Natriuretic Peptide 5.7 Total Protein Albumin Globulin Albumin/Globulin Ratio Procalcitonin 0.05 - Other Studies Radiology: [] reviewed Other Studies: [] Route of nutrition/ use of supplements: [] Nutritional Intake: [] IV Site: [] Hassan Catheter: [] - Physical Exam General: Alert, Oriented x3, Cooperative, No apparent distress HEENT: Atraumatic, PERRLA, EOMI Neck: Supple, No Nodes Lungs: Diminished Cardiovascular: Regular rate, Regular Rhythm Abdomen: Soft, Non Tender, Non-Distended Extremities: No edema Skin: No rashes IV Site: Peripheral, without redness Musculoskeletal: No Tenderness to Palpation of Joints or Extremities Neurological: Cranial nerves II-XII grossly intact - Assessment/Plan Antibiotics: [] Assessment/Plan: [] Active and Suspected Problems (Last Updated 05/27/20 @ 13:[address] Jasen Stallings, DO) COVID-19 (Acute) covid with hypoxia - d-dimer 0.5, CT neg for PE. Sx started around 2 weeks prior to admit. On dex, remdesivir, lovenox 40mg daily. On 9L. Pulm seeing today. Will order BNP. Sputum cx with oral stacy, UAg neg. Will stop azithro/ceftriaxone. Will follow, thank you
[2020-06-01] MEDS: Zolpidem Tartrate 5 MG Tablet PO (21:50)
[2020-06-02] VITALS (17 sets, daily range): BP systolic 118–129; BP diastolic 61–90; PULSE 53–94; RESP 14–22; TEMP 36.6–37.2; O2SAT 90–97
[2020-06-02 06:50] LABS: Hematocrit 46.9 % (40-54); Hemoglobin 15.7 g/dL (13.0-16.5); Mean Corp Hgb Conc 33.5 g/dL (32-36); Mean Corpuscular Hgb 28.1 pg (27.0-32.0); Mean Corpuscular Volume 83.9 fL (80-94); POSITIVE COUNT YES; POSITIVE MORPHOLOGY YES; RBC Distribution Width SD 39.7 fl (35.1-43.9); Red Blood Count 5.59 M/mm3 (4.6-6.2); White Blood Count 12.4 K/mm3 (4.4-11.0)
[2020-06-02 06:54] LABS: Differential Indicated MANUAL DIFF; Platelet Count 788 K/mm3 (150-450)
[2020-06-02 07:09] LABS: Absolute Lymphocyte Count 1.86 X10^3/uL (0.83-4.51); Absolute Neutrophil Count 9.3 X10^3/uL (2.0-7.7); Lymphocyte 15 % (19-41); Metamyelocyte 4 % (0-1); Monocyte 6 % (0-10); Neutrophil-Band 2 % (0-5); Neutrophil-Segmented 73 % (47-70); Platelet Estimate MKD INC (ADEQ); Total Cells Counted 100 (MANUAL DIFF)
[2020-06-02 07:22] LABS: ALB/GLOB Ratio 0.6 RATIO (0.9-2.4); AST(SGOT) 24 U/L (15-37); Alanine Aminotransfer ALT/SGPT 101 U/L (16-61); Alkaline Phosphatase 54 U/L (45-117); Anion Gap 7 (5-15); BUN 27 mg/dL (7-18); BUN/Creat Ratio 27.4 RATIO (10-20); Chloride 99 mmol/L (98-107); Creatinine, Serum 0.99 mg/dL (0.70-1.30); EST Glomerular Filtration Rate 88 mL/min (>60); Est Glom Filt Rate - Afr Amer 107 mL/min (>60); Estimated Creatinine Clearance 81.39 ml/min; Globulin 5.3 g/dL (2.2-4.2); Glucose 108 mg/dL (74-106); Potassium 3.6 mmol/L (3.5-5.1); Protein, Total 8.3 g/dL (6.4-8.2); Sodium Level 134 mmol/L (136-145)
--- NOTE | 2020-06-02 07:35 | PN_ITS ---
Patient Problems: Active and Suspected Problems (Last Updated 05/27/20 @ 13:[address] Jasen Stallings, DO) COVID-19 (Acute) Subjective: The patient was seen and examined at the bedside this morning. Events from the last 24 hours have been reviewed. The patient is currently afebrile, hemodynamically stable and maintaining appropriate oxygen saturations on Airvo heated high flow with an FiO2 requirement of 60%. The patient at one point yesterday did require BiPAP therapy for a period of time after he became anxious. He did respond to Ativan therapy. Objective: The patient's most recent lab work, culture data and imaging studies have all been personally reviewed. Sputum culture appears to be normal respiratory stacy. Strep and urine Legionella antigens were negative. - Physical Exam Vitals/I&O's: Vital Signs Temp Pulse Resp BP Pulse Ox 98.1 F 68 18 118/61 93 06/02/20 03:33 06/02/20 05:34 06/02/20 05:34 06/02/20 03:33 06/02/20 05:34 Oxygen Flow Rate (L/min) 60 Oxygen Delivery Method Airvo Weight: 187 lb 13.341 oz Body Mass Index (BMI) 32.2 Intake and Output for Last 24 Hours 05/31/20 06/01/20 06/02/20 23:59 23:59 23:59 Intake Total 2054 650 / 650 600 / 600 Output Total 400 / 400 Balance 2054 250 / 250 600 / 600 General: Alert, Cooperative HEENT: Atraumatic, Normocephalic Oral: No Gingival or Mucosal Lesions/ Ulcerations Neck: Supple, No Nodes, Trachea Midline Lungs: No rhonchi, No wheeze, No rales, Diminished Cardiovascular: Regular rate, Regular Rhythm Abdomen: Bowel Sounds Present, Soft, Non Tender, Obese Extremities: No clubbing, No cyanosis, No edema Skin: No breakdown Musculoskeletal: No Tenderness to Palpation of Joints or Extremities, No Muscle Wasting Lymphatic: No Cervical, Supraclavicular, or Inguinal Adenopathy Neurological: Cranial nerves II-XII grossly intact, Neuro grossly intact Psych/Mental Status: Normal Affect, Appropriate Labs (Last 48 Hours) 05/31/20 05/31/20 06/01/20 08:05 08:05 05:06 WBC 11.7 H 11.8 H RBC 5.19 5.21 Hgb 14.6 14.8 Hct 43.9 44.1 MCV 84.6 84.6 MCH 28.1 28.4 MCHC 33.3 33.6 RDW Std Deviation 40.3 40.0 RDW Coeff of Barbi 13.0 12.8 Plt Count 522 H 564 H MPV 9.0 9.0 Immature Gran % (Auto) 1.700 H 4.000 H Neut % (Auto) 84.2 H 79.9 H Lymph % (Auto) 8.6 L 10.0 L [place] % (Auto) 5.1 5.0 Eos % (Auto) 0.2 0.8 Baso % (Auto) 0.2 0.3 Absolute Neuts (auto) 9.8 H 9.5 H Absolute Lymphs (auto) 1.00 1.18 Total Counted Neutrophils % (Manual) Band Neutrophils % Lymphocytes % (Manual) Monocytes % (Manual) Metamyelocytes % Nucleated RBC % 0 0 Diff Path Review Platelet Estimate D-Dimer Quant (PE/DVT) Sodium 136 Potassium 3.4 L Chloride 101 Carbon Dioxide 24.0 Anion Gap 11 BUN 23 H Creatinine 0.90 Estim Creat Clear Calc 89.53 Est GFR (MDRD) Af Amer 120 Est GFR (MDRD) Non-Af 99 BUN/Creatinine Ratio 25.7 H Glucose 97 Calcium 8.5 Total Bilirubin 0.90 AST 37 ALT 148 H Alkaline Phosphatase 50 B-Natriuretic Peptide Total Protein 7.8 Albumin 3.1 L Globulin 4.7 H Albumin/Globulin Ratio 0.7 L Procalcitonin 06/01/20 06/01/20 06/01/20 05:06 05:06 05:06 WBC RBC Hgb Hct MCV MCH MCHC RDW Std Deviation RDW Coeff of Barbi Plt Count MPV Immature Gran % (Auto) Neut % (Auto) Lymph % (Auto) [place] % (Auto) Eos % (Auto) Baso % (Auto) Absolute Neuts (auto) Absolute Lymphs (auto) Total Counted Neutrophils % (Manual) Band Neutrophils % Lymphocytes % (Manual) Monocytes % (Manual) Metamyelocytes % Nucleated RBC % Diff Path Review Platelet Estimate D-Dimer Quant (PE/DVT) 0.33 Sodium 137 Potassium 3.8 Chloride 105 Carbon Dioxide 25.0 Anion Gap 7 BUN 18 Creatinine 0.87 Estim Creat Clear Calc 92.62 Est GFR (MDRD) Af Amer 123 Est GFR (MDRD) Non-Af 102 BUN/Creatinine Ratio 20.7 H Glucose 92 Calcium 8.7 Total Bilirubin 0.80 AST 28 ALT 110 H Alkaline Phosphatase 48 B-Natriuretic Peptide 5.7 Total Protein 7.3 Albumin 2.8 L Globulin 4.5 H Albumin/Globulin Ratio 0.6 L Procalcitonin 06/01/20 06/02/20 06/02/20 10:00 06:20 06:20 WBC 12.4 H RBC 5.59 Hgb 15.7 Hct 46.9 MCV 83.9 MCH 28.1 MCHC 33.5 RDW Std Deviation 39.7 RDW Coeff of Barbi 13.0 Plt Count 788 H* MPV 9.0 Immature Gran % (Auto) Neut % (Auto) Not Reportable Lymph % (Auto) [place] % (Auto) Eos % (Auto) Baso % (Auto) Absolute Neuts (auto) 9.3 H Absolute Lymphs (auto) 1.86 Total Counted 100 Neutrophils % (Manual) 73 H Band Neutrophils % 2 Lymphocytes % (Manual) 15 L Monocytes % (Manual) 6 Metamyelocytes % 4 H Nucleated RBC % Diff Path Review May foll Platelet Estimate [employer]D INC D-Dimer Quant (PE/DVT) Sodium 134 L Potassium 3.6 Chloride 99 Carbon Dioxide 28.0 Anion Gap 7 BUN 27 H Creatinine 0.99 Estim Creat Clear Calc 81.39 Est GFR (MDRD) Af Amer 107 Est GFR (MDRD) Non-Af 88 BUN/Creatinine Ratio 27.4 H Glucose 108 H Calcium 9.0 Total Bilirubin 1.10 H AST 24 ALT 101 H Alkaline Phosphatase 54 B-Natriuretic Peptide Total Protein 8.3 H Albumin 3.0 L Globulin 5.3 H Albumin/Globulin Ratio 0.6 L Procalcitonin 0.05 Microbiology 05/31/20 10:20 Sputum, Expectorated/Coughed Gram Stain - Final 05/31/20 10:20 Sputum, Expectorated/Coughed Respiratory Culture - Preliminary Appears to be normal respiratory stacy. Further studies to follow. Clinical Impression(s) from Imaging Studies Chest X-Ray 05/27/20 09:43 IMPRESSION: New bilateral pulmonary infiltrates at the lung bases. Electronically Signed: Armando Villafuerte MD at 10:30 EST , Service support , Chest CTA 05/27/20 13:41 IMPRESSION: Multifocal bilateral groundglass infiltrates as described. This is in keeping with the patient''s history of Covid. Electronically Signed: Armando Villafuerte MD at 15:03 EST , Service support , Chest X-Ray 06/01/20 14:25 IMPRESSION: Progressive bilateral pulmonary infiltrates. Electronically Signed: Armando Villafuerte MD at 14:49 EST , Service support , Current Medications Acetaminophen (Acetaminophen 325 Mg Tablet) 650 mg PO Q6H PRN PRN PRN Reason: Pain Score 1-10/Temp > 100.7 F Albuterol Sulfate (Albuterol Sulfate 8 Gm Inhaler (60 Puffs)) 2 puff INHALATION Q4H PRN PRN PRN Reason: SHORTNESS OF BREATH Last Admin: 06/01/20 09:59 Dose: 2 puff Documented by: Dexamethasone (Dexamethasone 4 Mg Tablet) 6 mg PO DAILY [facility] Stop: 06/05/20 23:55 Last Admin: 06/01/20 09:57 Dose: 6 mg Documented by: Enoxaparin Sodium (Enoxaparin 40 Mg/0.4 Ml Syringe) 40 mg SC DAILY [facility] Last Admin: 06/01/20 09:58 Dose: 40 mg Documented by: Hydrochlorothiazide (Hydrochlorothiazide 25 Mg Tablet) 25 mg PO DAILY [facility] Last Admin: 06/01/20 09:58 Dose: 25 mg Documented by: Sodium Chloride () 250 mls @ 15 mls/hr IV .[id number] PRN PRN Reason: Saline Flush Ibuprofen (Ibuprofen 400 Mg Tablet) 400 mg PO Q4H PRN PRN PRN Reason: Pain Score 1-10/Temp > 100.7 F Metoprolol Tartrate (Metoprolol Tartrate 100 Mg Tablet) 100 mg PO BID [facility] Last Admin: 06/01/20 21:50 Dose: 100 mg Documented by: Ondansetron HCl (Ondansetron 4 Mg/2 Ml Vial) 4 mg IV Q8H PRN PRN PRN Reason: NAUSEA/VOMITING Sodium Chloride (0.9% Saline Lock 10 Ml Syringe) 10 - 40 ml IV UD PRN PRN Reason: SALINE FLUSH Last Admin: 06/01/20 11:56 Dose: 10 ml Documented by: Medical Necessity - Tobacco Use Smoking Status: Never smoker Assessment/Plan All Active Problems (Last Updated 05/27/20 @ 13:[address] Jasen Stallings, DO) COVID-19 (Acute) RECOMMENDATIONS: 1. Continue Airvo heated high flow and wean FiO2 to maintain oxygen saturations at or above 90%. 2. Continue Decadron to complete 10-day treatment course. 3. Attempt gentle diuresis as tolerated by hemodynamics and renal function. 4. Consider initiation of anxiolytic therapy. IMPRESSIONS: 1. Acute hypoxemic respiratory failure secondary to COVID-19 pneumonia The patient has had increasing oxygen requirements over the course of his hospitalization. He has already completed a treatment course of remdesivir and will remain on Decadron with plans to complete 10 days of total treatment. Plan to continue supplemental oxygen to maintain saturations at or above 90%. I do suspect that the patient has underlying anxiety which is contributing to his shortness of breath and increased work of breathing. Attempts at gentle diuresis can be undertaken as tolerated by hemodynamics and renal function. 2. Elevated transaminases Unclear etiology. However, transaminases are improving. 3. Thrombocytosis Possibly reactive in etiology and related to underlying viral infection. Continue to monitor on a daily basis. 4. Obesity/hypertension/anxiety Complicates care, management, recovery and prognosis. Continue home medications as indicated. This note was generated with [employer] software. It may contain incorrect words, spelling, and punctuation that were not noted in checking the note before signing. Inpatient E&M: 03382 Subs Hosp L3
--- NOTE | 2020-06-02 07:43 | PN_ITS ---
Patient Problems: Active and Suspected Problems (Last Updated 05/27/20 @ 13:[address] Jasen Stallings, DO) COVID-19 (Acute) Subjective: Patient seen and examined. He is still short of breath. He is on air Vo with FiO2 requirement of 60%. He did require BiPAP briefly last night when he became very agitated. Review of systems otherwise negative. Vitals/I&O's: Vital Signs Temp Pulse Resp BP Pulse Ox 98.1 F 68 18 118/61 93 06/02/20 03:33 06/02/20 05:34 06/02/20 05:34 06/02/20 03:33 06/02/20 05:34 Oxygen Flow Rate (L/min) 60 Oxygen Delivery Method Airvo Weight: 187 lb 13.341 oz Body Mass Index (BMI) 32.2 Intake and Output for Last 24 Hours 05/31/20 06/01/20 06/02/20 23:59 23:59 23:59 Intake Total 2054 650 / 650 600 / 600 Output Total 400 / 400 Balance 2054 250 / 250 600 / 600 General: Alert, Oriented x3, Cooperative, No apparent distress HEENT: Atraumatic, PERRLA, EOMI, Normocephalic Oral: Moist Mucosa Neck: Supple, No JVD, Negative Carotid Bruits Lungs: Clear to auscultation, Normal air movement, - - on AirVo at 60L of oxygen Cardiovascular: Regular rate, Regular Rhythm, Normal S1, Normal S2, No murmurs Abdomen: Bowel Sounds Present, Soft, Non Tender, Non-Distended, No Hepato- splenomegaly Extremities: No clubbing, No cyanosis, No edema, Capillary Refill Less than 3 Seconds Skin: No rashes, No breakdown Musculoskeletal: No Tenderness to Palpation of Joints or Extremities Lymphatic: No Cervical, Supraclavicular, or Inguinal Adenopathy Neurological: Cranial nerves II-XII grossly intact, Neuro grossly intact, Motor Exam 5/5 strength throughout Psych/Mental Status: Anxious, Alert and oriented to time, place, person, mood and affect Microbiology Past 72 Hours 05/31/20 10:20 Sputum, Expectorated/Coughed Gram Stain - Final 05/31/20 10:20 Sputum, Expectorated/Coughed Respiratory Culture - Preliminary Appears to be normal respiratory stacy. Further studies to follow. 05/30/20 17:10 Urine, Clean Catch Legionella Antigen - Final 05/30/20 17:10 Urine, Clean Catch Streptococcus pneumoniae Antigen (M - Final Laboratory Results 06/01/20 05:06: D-Dimer Quant (PE/DVT) 0.33 06/01/20 05:06: B-Natriuretic Peptide 5.7 06/01/20 10:00: Procalcitonin 0.05 06/02/20 06:20: WBC 12.4 H, RBC 5.59, Hgb 15.7, Hct 46.9, MCV 83.9, MCH 28.1, MCHC 33.5, RDW Std Deviation 39.7, RDW Coeff of Barbi 13.0, Plt Count 788 H*, MPV 9.0, Neut % (Auto) Not Reportable, Absolute Neuts (auto) 9.3 H, Absolute Lymphs (auto) 1.86, Total Counted 100, Neutrophils % (Manual) 73 H, Band Neutrophils % 2, Lymphocytes % (Manual) 15 L, Monocytes % (Manual) 6, Metamyelocytes % 4 H, Diff Path Review September foll, Platelet Estimate [employer] 06/02/20 06:20: Sodium 134 L, Potassium 3.6, Chloride 99, Carbon Dioxide 28.0, Anion Gap 7, BUN 27 H, Creatinine 0.99, Estim Creat Clear Calc 81.39, Est GFR (MDRD) Af Amer 107, Est GFR (MDRD) Non-Af 88, BUN/Creatinine Ratio 27.4 H, Glucose 108 H, Calcium 9.0, Total Bilirubin 1.10 H, AST 24, ALT 101 H, Alkaline Phosphatase 54, Total Protein 8.3 H, Albumin 3.0 L, Globulin 5.3 H, Albumin/Globulin Ratio 0.6 L Diagnostic Data Chest CTA 05/27/20 13:41 IMPRESSION: Multifocal bilateral groundglass infiltrates as described. This is in keeping with the patient''s history of Covid. Electronically Signed: Armando Villafuerte MD at 15:03 EST , Service support , Chest X-Ray 06/01/20 14:25 IMPRESSION: Progressive bilateral pulmonary infiltrates. Electronically Signed: Armando Villafuerte MD at 14:49 EST , Service support , Current Medications Acetaminophen (Acetaminophen 325 Mg Tablet) 650 mg PO Q6H PRN PRN PRN Reason: Pain Score 1-10/Temp > 100.7 F Albuterol Sulfate (Albuterol Sulfate 8 Gm Inhaler (60 Puffs)) 2 puff INHALATION Q4H PRN PRN PRN Reason: SHORTNESS OF BREATH Last Admin: 06/01/20 09:59 Dose: 2 puff Documented by: Dexamethasone (Dexamethasone 4 Mg Tablet) 6 mg PO DAILY [facility] Stop: 06/05/20 23:55 Last Admin: 06/01/20 09:57 Dose: 6 mg Documented by: Enoxaparin Sodium (Enoxaparin 40 Mg/0.4 Ml Syringe) 40 mg SC DAILY [facility] Last Admin: 06/01/20 09:58 Dose: 40 mg Documented by: Furosemide (Furosemide 40 Mg/4 Ml Vial) 40 mg IV BID@1000,1800 [facility] Hydrochlorothiazide (Hydrochlorothiazide 25 Mg Tablet) 25 mg PO DAILY [facility] Last Admin: 06/01/20 09:58 Dose: 25 mg Documented by: Sodium Chloride () 250 mls @ 15 mls/hr IV .[id number] PRN PRN Reason: Saline Flush Ibuprofen (Ibuprofen 400 Mg Tablet) 400 mg PO Q4H PRN PRN PRN Reason: Pain Score 1-10/Temp > 100.7 F Metoprolol Tartrate (Metoprolol Tartrate 100 Mg Tablet) 100 mg PO BID [facility] Last Admin: 06/01/20 21:50 Dose: 100 mg Documented by: Ondansetron HCl (Ondansetron 4 Mg/2 Ml Vial) 4 mg IV Q8H PRN PRN PRN Reason: NAUSEA/VOMITING Sodium Chloride (0.9% Saline Lock 10 Ml Syringe) 10 - 40 ml IV UD PRN PRN Reason: SALINE FLUSH Last Admin: 06/01/20 11:56 Dose: 10 ml Documented by: STROKE Vital Signs/Narrative: Vital Signs Pulse Resp Pulse Ox 06/02/20 05:34 68 18 93 06/02/20 04:37 94 06/02/20 04:05 53 L 06/02/20 03:57 59 L 94 Medical Necessity - Tobacco Use Smoking Status: Never smoker Assessment/Plan All Active Problems (Last Updated 05/27/20 @ 13:[address] Jasen Stallings, DO) COVID-19 (Acute) # COVID 19 pneumonia * diagnosed May 18. * on dexamethasone. now on AirVO at 60L of oxygen * titrate oxygen to maintain sats >90% * breathing treatment with bronchodilators * continue remdesivir * on ceftriaxone and azithromycin * respiratory cultures still pending. Urine for strep and legionella negative. * pulmonology on board * #Acute hypoxic respiratory failure due to COVID 19 pneumonia * now on AirVo as above. * breathing treatment with bronchodilators * # Transaminitis: largely resolved #Hypokalemia: resolved. DVT prophylaxis; lovenox 40mg daily NOte: I spoke to patient's Debbie (). She asked about convalescent plasma and why patient had not received it. She also asked if patient could be transferred out of the Covid unit to regular floor once sedation. Was completed so he could be visited by at least 1 family member. I did inform her that patient had about 80 small to complete the 21-day isolation recommended for severe Covid infection. Was not likely the patient could be transferred out of Covid unit once he was out of isolation. I also did speak to the show jumping instructor spoke to the infectious disease doctor about convalescent plasma. Per pulmonology and ID, they did not think patient would benefit from convalescent plasma and so felt we should hold off on the convalescent plasma for now. I did call patient's back to let her know that this was the viewpoint of pulmonology and ID. Inpatient E&M: [id number] Subs Hosp L3
[2020-06-02] MEDS: dexAMETHasone 4 MG Tablet 6 MG PO (10:21)
[2020-06-02] MEDS: hydroCHLOROthiazide 25 MG Tablet PO (10:22)
[2020-06-02] MEDS: Metoprolol Tartrate 100 MG Tablet PO ×2 (10:22→21:22)
[2020-06-02] MEDS: Furosemide 40 MG/4 ML Vial IV ×2 (10:22→17:15)
[2020-06-02] MEDS: Enoxaparin 40 MG/0.4 ML Syringe SC (10:22)
[2020-06-02] MEDS: LORazepam 1 MG Tablet PO ×2 (11:23→21:22)
[2020-06-02 12:12] LABS: Pathologist Review Reviewed
[2020-06-02] MEDS: 0.9% Saline Lock 10 ML Syringe IV ×2 (17:16→21:23)
[2020-06-02] MEDS: Zolpidem Tartrate 5 MG Tablet PO (22:02)
[2020-06-03] VITALS (14 sets, daily range): BP systolic 113–138; BP diastolic 85–91; PULSE 58–112; RESP 13–19; TEMP 36.2–36.6; O2SAT 92–96
[2020-06-03 05:56] LABS: Hematocrit 45.4 % (40-54); Hemoglobin 15.9 g/dL (13.0-16.5); Mean Corpuscular Hgb 29.2 pg (27.0-32.0); Mean Corpuscular Volume 83.5 fL (80-94); Mean Platelet Vol. 9.3 fl (6.2-12.0); POSITIVE COUNT YES; POSITIVE MORPHOLOGY YES; RBC Distribution Width CV 12.8 % (11.6-14.6); RBC Distribution Width SD 38.4 fl (35.1-43.9); Red Blood Count 5.44 M/mm3 (4.6-6.2); White Blood Count 12.3 K/mm3 (4.4-11.0)
[2020-06-03 05:57] LABS: Differential Indicated MANUAL DIFF; Platelet Count 874 K/mm3 (150-450)
[2020-06-03 06:19] LABS: Absolute Neutrophil Count 9.7 X10^3/uL (2.0-7.7); Lymphocyte 15 % (19-41); Metamyelocyte 1 % (0-1); Monocyte 5 % (0-10); Neutrophil-Segmented 79 % (47-70); Total Cells Counted 100 (MANUAL DIFF)
[2020-06-03 06:20] LABS: Platelet Estimate MKD INC (ADEQ); Red Cell Morphology NORM C+C NORMAL (NORM C&C)
[2020-06-03 07:31] LABS: ALB/GLOB Ratio 0.7 RATIO (0.9-2.4); AST(SGOT) 20 U/L (15-37); Alanine Aminotransfer ALT/SGPT 95 U/L (16-61); Albumin, Serum 3.1 g/dL (3.2-5.0); Alkaline Phosphatase 57 U/L (45-117); Anion Gap 12 (5-15); BUN 31 mg/dL (7-18); BUN/Creat Ratio 31.2 RATIO (10-20); Calcium,Total 9.3 mg/dL (8.5-10.1); Chloride 96 mmol/L (98-107); Creatinine, Serum 0.99 mg/dL (0.70-1.30); EST Glomerular Filtration Rate 88 mL/min (>60); Est Glom Filt Rate - Afr Amer 106 mL/min (>60); Estimated Creatinine Clearance 81.39 ml/min; Globulin 4.7 g/dL (2.2-4.2); Glucose 105 mg/dL (74-106); Potassium 4.3 mmol/L (3.5-5.1); Protein, Total 7.8 g/dL (6.4-8.2); Sodium Level 134 mmol/L (136-145)
--- NOTE | 2020-06-03 07:40 | PN_ITS ---
Patient Problems: Active and Suspected Problems (Last Updated 05/27/20 @ 13:[address] Jasen Stallings, DO) COVID-19 (Acute) Subjective: Patient seen and examined. He remains on AIrVO. He has no complaints today. Review of systems otherwise negative. He has remained hemodynamically stable. However platelets have trended up to 874 today. Vitals/I&O's: Vital Signs Temp Pulse Resp BP Pulse Ox 97.1 F L 58 L 13 113/87 H 95 06/03/20 03:33 06/03/20 04:40 06/03/20 04:40 06/03/20 03:33 06/03/20 04:40 Oxygen Flow Rate (L/min) 60 Oxygen Delivery Method Airvo Weight: 187 lb 13.341 oz Body Mass Index (BMI) 32.2 Intake and Output for Last 24 Hours 06/01/20 06/02/20 06/03/20 23:59 23:59 23:59 Intake Total 650 / 650 600 / 600 Output Total 400 / 400 Balance 250 / 250 600 / 600 General: Alert, Oriented x3, Cooperative, No apparent distress HEENT: Atraumatic, PERRLA, EOMI, Normocephalic Oral: Moist Mucosa Neck: Supple, No JVD, Negative Carotid Bruits Lungs: Clear to auscultation, Normal air movement, - - on AirVo at 60L of oxygen Cardiovascular: Regular rate, Regular Rhythm, Normal S1, Normal S2, No murmurs Abdomen: Bowel Sounds Present, Soft, Non Tender, Non-Distended, No Hepato- splenomegaly Extremities: No clubbing, No cyanosis, No edema, Capillary Refill Less than 3 Seconds Skin: No rashes, No breakdown Musculoskeletal: No Tenderness to Palpation of Joints or Extremities Lymphatic: No Cervical, Supraclavicular, or Inguinal Adenopathy Neurological: Cranial nerves II-XII grossly intact, Neuro grossly intact, Motor Exam 5/5 strength throughout Psych/Mental Status: Anxious, Alert and oriented to time, place, person, mood and affect Microbiology Past 72 Hours 05/31/20 10:20 Sputum, Expectorated/Coughed Gram Stain - Final 05/31/20 10:20 Sputum, Expectorated/Coughed Respiratory Culture - Final Laboratory Results 06/02/20 06:20: Diff Path Review Reviewed 06/03/20 05:26: WBC 12.3 H, RBC 5.44, Hgb 15.9, Hct 45.4, MCV 83.5, MCH 29.2, MCHC 35.0, RDW Std Deviation 38.4, RDW Coeff of Barbi 12.8, Plt Count 874 H*, MPV 9.3, Neut % (Auto) Not Reportable, Absolute Neuts (auto) 9.7 H, Absolute Lymphs (auto) 1.80, Total Counted 100, Neutrophils % (Manual) 79 H, Lymphocytes % (Manual) 15 L, Monocytes % (Manual) 5, Metamyelocytes % 1, Diff Path Review September, Platelet Estimate [employer], RBC Morphology NORM C+C 06/03/20 05:26: Sodium 134 L, Potassium 4.3, Chloride 96 L, Carbon Dioxide 26.0, Anion Gap 12, BUN 31 H, Creatinine 0.99, Estim Creat Clear Calc 81.39, Est GFR (MDRD) Af Amer 106, Est GFR (MDRD) Non-Af 88, BUN/Creatinine Ratio 31.2 H, Glucose 105, Calcium 9.3, Total Bilirubin 0.90, AST 20, ALT 95 H, Alkaline Phosphatase 57, Total Protein 7.8, Albumin 3.1 L, Globulin 4.7 H, Albumin/Globulin Ratio 0.7 L Current Medications Acetaminophen (Acetaminophen 325 Mg Tablet) 650 mg PO Q6H PRN PRN PRN Reason: Pain Score 1-10/Temp > 100.7 F Albuterol Sulfate (Albuterol Sulfate 8 Gm Inhaler (60 Puffs)) 2 puff INHALATION Q4H PRN PRN PRN Reason: SHORTNESS OF BREATH Last Admin: 06/01/20 09:59 Dose: 2 puff Documented by: Dexamethasone (Dexamethasone 4 Mg Tablet) 6 mg PO DAILY [facility] Stop: 06/05/20 23:55 Last Admin: 06/02/20 10:21 Dose: 6 mg Documented by: Enoxaparin Sodium (Enoxaparin 40 Mg/0.4 Ml Syringe) 40 mg SC DAILY [facility] Last Admin: 06/02/20 10:22 Dose: 40 mg Documented by: Furosemide (Furosemide 40 Mg/4 Ml Vial) 40 mg IV BID@1000,1800 [facility] Last Admin: 06/02/20 17:15 Dose: 40 mg Documented by: Hydrochlorothiazide (Hydrochlorothiazide 25 Mg Tablet) 25 mg PO DAILY [facility] Last Admin: 06/02/20 10:22 Dose: 25 mg Documented by: Sodium Chloride () 250 mls @ 15 mls/hr IV .[id number] PRN PRN Reason: Saline Flush Ibuprofen (Ibuprofen 400 Mg Tablet) 400 mg PO Q4H PRN PRN PRN Reason: Pain Score 1-10/Temp > 100.7 F Lorazepam (Lorazepam 1 Mg Tablet) 1 mg PO Q6H PRN PRN PRN Reason: ANXIETY Last Admin: 06/02/20 21:22 Dose: 1 mg Documented by: Metoprolol Tartrate (Metoprolol Tartrate 100 Mg Tablet) 100 mg PO BID [facility] Last Admin: 06/02/20 21:22 Dose: 100 mg Documented by: Ondansetron HCl (Ondansetron 4 Mg/2 Ml Vial) 4 mg IV Q8H PRN PRN PRN Reason: NAUSEA/VOMITING Sodium Chloride (0.9% Saline Lock 10 Ml Syringe) 10 - 40 ml IV UD PRN PRN Reason: SALINE FLUSH Last Admin: 06/02/20 21:23 Dose: 10 ml Documented by: Zolpidem Tartrate (Zolpidem Tartrate 5 Mg Tablet) 5 mg PO QHS PRN PRN PRN Reason: INSOMNIA Last Admin: 06/02/20 22:02 Dose: 5 mg Documented by: STROKE Vital Signs/Narrative: Vital Signs Pulse Resp Pulse Ox 06/03/20 04:40 58 L 13 95 06/03/20 04:28 60 Medical Necessity - Tobacco Use Smoking Status: Never smoker Assessment/Plan All Active Problems (Last Updated 05/27/20 @ 13:[address] Jasen Stallings, ) COVID-19 (Acute) # COVID 19 pneumonia * diagnosed May 18. * on dexamethasone. still on AirVO at 60L of oxygen * titrate oxygen to maintain sats >90% * breathing treatment with bronchodilators * has completed remdesivir treatment. * ceftriaxone and azithromycin discontinued * respiratory cultures still pending. Urine for strep and legionella negative. * pulmonology and ID on board * #Acute hypoxic respiratory failure due to COVID 19 pneumonia * now on AirVo as above. * breathing treatment with bronchodilators * #thrombocytosis: platelets are now up to 874. Cause is unclear, though this may be due to covid. Consult hematology. # Transaminitis: resolved. #Hypokalemia: resolved. DVT prophylaxis; lovenox 40mg daily Inpatient E&M: [id number] [facility] Hosp L3
--- NOTE | 2020-06-03 08:19 | PCM.PN.PUL ---
<Jimmy Alex - Last Filed: 06/03/20 10:02> Patient Problems: Active and Suspected Problems (Last Updated 05/27/20 @ 13:[address] Jasen Stallings DO) COVID-19 (Acute) Thrombocytosis (Acute) - Physical Exam Vitals/I&O's: Vital Signs Temp Pulse Resp BP Pulse Ox 97.1 F L 76 13 113/87 H 95 06/03/20 03:33 06/03/20 08:55 06/03/20 04:40 06/03/20 03:33 06/03/20 04:40 Oxygen Flow Rate (L/min) 60 Oxygen Delivery Method Airvo Weight: 85.2 kg Body Mass Index (BMI) 32.2 Intake and Output for Last 24 Hours 06/01/20 06/02/20 06/03/20 23:59 23:59 23:59 Intake Total 650 / 650 600 / 600 Output Total 400 / 400 Balance 250 / 250 600 / 600 Microbiology Past 72 Hours 05/31/20 10:20 Sputum, Expectorated/Coughed Gram Stain - Final 05/31/20 10:20 Sputum, Expectorated/Coughed Respiratory Culture - Final Laboratory Results 06/02/20 06:20: Diff Path Review Reviewed 06/03/20 05:26: WBC 12.3 H, RBC 5.44, Hgb 15.9, Hct 45.4, MCV 83.5, MCH 29.2, MCHC 35.0, RDW Std Deviation 38.4, RDW Coeff of Barbi 12.8, Plt Count 874 H*, MPV 9.3, Neut % (Auto) Not Reportable, Absolute Neuts (auto) 9.7 H, Absolute Lymphs (auto) 1.80, Total Counted 100, Neutrophils % (Manual) 79 H, Lymphocytes % (Manual) 15 L, Monocytes % (Manual) 5, Metamyelocytes % 1, Diff Path Review May sigifredo, Platelet Estimate MKD INC, RBC Morphology NORM C+C 06/03/20 05:26: Sodium 134 L, Potassium 4.3, Chloride 96 L, Carbon Dioxide 26.0, Anion Gap 12, BUN 31 H, Creatinine 0.99, Estim Creat Clear Calc 81.39, Est GFR (MDRD) Af Amer 106, Est GFR (MDRD) Non-Af 88, BUN/Creatinine Ratio 31.2 H, Glucose 105, Calcium 9.3, Total Bilirubin 0.90, AST 20, ALT 95 H, Alkaline Phosphatase 57, Total Protein 7.8, Albumin 3.1 L, Globulin 4.7 H, Albumin/Globulin Ratio 0.7 L Current Medications Acetaminophen (Acetaminophen 325 Mg Tablet) 650 mg PO Q6H PRN PRN PRN Reason: Pain Score 1-10/Temp > 100.7 F Albuterol Sulfate (Albuterol Sulfate 8 Gm Inhaler (60 Puffs)) 2 puff INHALATION Q4H PRN PRN PRN Reason: SHORTNESS OF BREATH Last Admin: 06/01/20 09:59 Dose: 2 puff Documented by: Dexamethasone (Dexamethasone 4 Mg Tablet) 6 mg PO DAILY [facility] Stop: 06/05/20 23:55 Last Admin: 06/03/20 08:54 Dose: 6 mg Documented by: Enoxaparin Sodium (Enoxaparin 40 Mg/0.4 Ml Syringe) 40 mg SC DAILY [facility] Last Admin: 06/03/20 08:54 Dose: 40 mg Documented by: Furosemide (Furosemide 40 Mg/4 Ml Vial) 40 mg IV BID@1000,1800 [facility] Last Admin: 06/03/20 08:54 Dose: 40 mg Documented by: Hydrochlorothiazide (Hydrochlorothiazide 25 Mg Tablet) 25 mg PO DAILY [facility] Last Admin: 06/03/20 08:55 Dose: 25 mg Documented by: Sodium Chloride () 250 mls @ 15 mls/hr IV .[id number] PRN PRN Reason: Saline Flush Ibuprofen (Ibuprofen 400 Mg Tablet) 400 mg PO Q4H PRN PRN PRN Reason: Pain Score 1-10/Temp > 100.7 F Lorazepam (Lorazepam 1 Mg Tablet) 1 mg PO Q6H PRN PRN PRN Reason: ANXIETY Last Admin: 06/02/20 21:22 Dose: 1 mg Documented by: Metoprolol Tartrate (Metoprolol Tartrate 100 Mg Tablet) 100 mg PO BID [facility] Last Admin: 06/03/20 08:55 Dose: 100 mg Documented by: Ondansetron HCl (Ondansetron 4 Mg/2 Ml Vial) 4 mg IV Q8H PRN PRN PRN Reason: NAUSEA/VOMITING Sodium Chloride (0.9% Saline Lock 10 Ml Syringe) 10 - 40 ml IV UD PRN PRN Reason: SALINE FLUSH Last Admin: 06/02/20 21:23 Dose: 10 ml Documented by: Zolpidem Tartrate (Zolpidem Tartrate 5 Mg Tablet) 5 mg PO QHS PRN PRN PRN Reason: INSOMNIA Last Admin: 06/02/20 22:02 Dose: 5 mg Documented by: Assessment/Plan All Active Problems (Last Updated 05/27/20 @ 13:[address] Jasen Stallings, DO) COVID-19 (Acute) Thrombocytosis (Acute) <Bladimir Cortés - Last Filed: 06/03/20 10:56> Subjective: The patient was seen and examined at the bedside this morning. Events from the last 24 hours have been reviewed. The patient is currently afebrile, hemodynamically stable and maintaining appropriate oxygen saturations on Airvo heated high flow oxygen with an FiO2 requirement of 54%. Platelet count has increased to 874,000 this morning. The patient has completed his treatment course of remdesivir and remains on Decadron and IV diuretic therapy. Objective: The patient's most recent lab work, culture data and imaging studies have all been personally reviewed. Sputum culture appears to be normal respiratory stacy. Strep and urine Legionella antigens were negative. - Physical Exam Vitals/I&O's: Vital Signs Temp Pulse Resp BP Pulse Ox 97.1 F L 76 13 113/87 H 95 06/03/20 03:33 06/03/20 07:00 06/03/20 04:40 06/03/20 03:33 06/03/20 04:40 Oxygen Flow Rate (L/min) 60 Oxygen Delivery Method Airvo Weight: 187 lb 13.341 oz Body Mass Index (BMI) 32.2 Intake and Output for Last 24 Hours 06/01/20 06/02/20 06/03/20 23:59 23:59 23:59 Intake Total 650 / 650 600 / 600 Output Total 400 / 400 Balance 250 / 250 600 / 600 General: Alert, Cooperative, No apparent distress HEENT: Atraumatic, PERRLA, Normocephalic Oral: No Gingival or Mucosal Lesions/ Ulcerations Neck: Supple, No Nodes, Trachea Midline Lungs: Diminished, Tachypneic Cardiovascular: Regular rate, Regular Rhythm, Normal S1, Normal S2, No murmurs Abdomen: Bowel Sounds Present, Soft, Non Tender, Obese Extremities: No clubbing, No cyanosis, No edema Skin: No breakdown Musculoskeletal: No Tenderness to Palpation of Joints or Extremities Lymphatic: No Cervical, Supraclavicular, or Inguinal Adenopathy Neurological: Cranial nerves II-XII grossly intact, Neuro grossly intact Psych/Mental Status: Anxious Labs (Last 48 Hours) 06/01/20 06/01/20 06/01/20 05:06 05:06 10:00 WBC RBC Hgb Hct MCV MCH MCHC RDW Std Deviation RDW Coeff of Barbi Plt Count MPV Neut % (Auto) Absolute Neuts (auto) Absolute Lymphs (auto) Total Counted Neutrophils % (Manual) Band Neutrophils % Lymphocytes % (Manual) Monocytes % (Manual) Metamyelocytes % Diff Path Review Platelet Estimate RBC Morphology D-Dimer Quant (PE/DVT) 0.33 Sodium Potassium Chloride Carbon Dioxide Anion Gap BUN Creatinine Estim Creat Clear Calc Est GFR (MDRD) Af Amer Est GFR (MDRD) Non-Af BUN/Creatinine Ratio Glucose Calcium Total Bilirubin AST ALT Alkaline Phosphatase B-Natriuretic Peptide 5.7 Total Protein Albumin Globulin Albumin/Globulin Ratio Procalcitonin 0.05 06/02/20 06/02/20 06/03/20 06:20 06:20 05:26 WBC 12.4 H 12.3 H RBC 5.59 5.44 Hgb 15.7 15.9 Hct 46.9 45.4 MCV 83.9 83.5 MCH 28.1 29.2 MCHC 33.5 35.0 RDW Std Deviation 39.7 38.4 RDW Coeff of Barbi 13.0 12.8 Plt Count 788 H* 874 H* MPV 9.0 9.3 Neut % (Auto) Not Reportable Not Reportable Absolute Neuts (auto) 9.3 H 9.7 H Absolute Lymphs (auto) 1.86 1.80 Total Counted 100 100 Neutrophils % (Manual) 73 H 79 H Band Neutrophils % 2 Lymphocytes % (Manual) 15 L 15 L Monocytes % (Manual) 6 5 Metamyelocytes % 4 H 1 Diff Path Review Reviewed September Platelet Estimate MKD INC MKD INC RBC Morphology NORM C+C D-Dimer Quant (PE/DVT) Sodium 134 L Potassium 3.6 Chloride 99 Carbon Dioxide 28.0 Anion Gap 7 BUN 27 H Creatinine 0.99 Estim Creat Clear Calc 81.39 Est GFR (MDRD) Af Amer 107 Est GFR (MDRD) Non-Af 88 BUN/Creatinine Ratio 27.4 H Glucose 108 H Calcium 9.0 Total Bilirubin 1.10 H AST 24 ALT 101 H Alkaline Phosphatase 54 B-Natriuretic Peptide Total Protein 8.3 H Albumin 3.0 L Globulin 5.3 H Albumin/Globulin Ratio 0.6 L Procalcitonin 06/03/20 05:26 WBC RBC Hgb Hct MCV MCH MCHC RDW Std Deviation RDW Coeff of Barbi Plt Count MPV Neut % (Auto) Absolute Neuts (auto) Absolute Lymphs (auto) Total Counted Neutrophils % (Manual) Band Neutrophils % Lymphocytes % (Manual) Monocytes % (Manual) Metamyelocytes % Diff Path Review Platelet Estimate RBC Morphology D-Dimer Quant (PE/DVT) Sodium 134 L Potassium 4.3 Chloride 96 L Carbon Dioxide 26.0 Anion Gap 12 BUN 31 H Creatinine 0.99 Estim Creat Clear Calc 81.39 Est GFR (MDRD) Af Amer 106 Est GFR (MDRD) Non-Af 88 BUN/Creatinine Ratio 31.2 H Glucose 105 Calcium 9.3 Total Bilirubin 0.90 AST 20 ALT 95 H Alkaline Phosphatase 57 B-Natriuretic Peptide Total Protein 7.8 Albumin 3.1 L Globulin 4.7 H Albumin/Globulin Ratio 0.7 L Procalcitonin Microbiology 05/31/20 10:20 Sputum, Expectorated/Coughed Gram Stain - Final 05/31/20 10:20 Sputum, Expectorated/Coughed Respiratory Culture - Final Clinical Impression(s) from Imaging Studies Chest X-Ray 05/27/20 09:43 IMPRESSION: New bilateral pulmonary infiltrates at the lung bases. Electronically Signed: Armando Villafuerte MD at 10:30 EST , Service support , Chest CTA 05/27/20 13:41 IMPRESSION: Multifocal bilateral groundglass infiltrates as described. This is in keeping with the patient''s history of Covid. Electronically Signed: Armando Villafuerte MD at 15:03 EST , Service support , Chest X-Ray 06/01/20 14:25 IMPRESSION: Progressive bilateral pulmonary infiltrates. Electronically Signed: Armando Villafuerte MD at 14:49 EST , Service support , Current Medications Acetaminophen (Acetaminophen 325 Mg Tablet) 650 mg PO Q6H PRN PRN PRN Reason: Pain Score 1-10/Temp > 100.7 F Albuterol Sulfate (Albuterol Sulfate 8 Gm Inhaler (60 Puffs)) 2 puff INHALATION Q4H PRN PRN PRN Reason: SHORTNESS OF BREATH Last Admin: 06/01/20 09:59 Dose: 2 puff Documented by: Dexamethasone (Dexamethasone 4 Mg Tablet) 6 mg PO DAILY [facility] Stop: 06/05/20 23:55 Last Admin: 06/02/20 10:21 Dose: 6 mg Documented by: Enoxaparin Sodium (Enoxaparin 40 Mg/0.4 Ml Syringe) 40 mg SC DAILY [facility] Last Admin: 06/02/20 10:22 Dose: 40 mg Documented by: Furosemide (Furosemide 40 Mg/4 Ml Vial) 40 mg IV BID@1000,1800 [facility] Last Admin: 06/02/20 17:15 Dose: 40 mg Documented by: Hydrochlorothiazide (Hydrochlorothiazide 25 Mg Tablet) 25 mg PO DAILY [facility] Last Admin: 06/02/20 10:22 Dose: 25 mg Documented by: Sodium Chloride () 250 mls @ 15 mls/hr IV .[id number] PRN PRN Reason: Saline Flush Ibuprofen (Ibuprofen 400 Mg Tablet) 400 mg PO Q4H PRN PRN PRN Reason: Pain Score 1-10/Temp > 100.7 F Lorazepam (Lorazepam 1 Mg Tablet) 1 mg PO Q6H PRN PRN PRN Reason: ANXIETY Last Admin: 06/02/20 21:22 Dose: 1 mg Documented by: Metoprolol Tartrate (Metoprolol Tartrate 100 Mg Tablet) 100 mg PO BID [facility] Last Admin: 06/02/20 21:22 Dose: 100 mg Documented by: Ondansetron HCl (Ondansetron 4 Mg/2 Ml Vial) 4 mg IV Q8H PRN PRN PRN Reason: NAUSEA/VOMITING Sodium Chloride (0.9% Saline Lock 10 Ml Syringe) 10 - 40 ml IV UD PRN PRN Reason: SALINE FLUSH Last Admin: 06/02/20 21:23 Dose: 10 ml Documented by: Zolpidem Tartrate (Zolpidem Tartrate 5 Mg Tablet) 5 mg PO QHS PRN PRN PRN Reason: INSOMNIA Last Admin: 06/02/20 22:02 Dose: 5 mg Documented by: Medical Necessity - Tobacco Use Smoking Status: Never smoker Assessment/Plan RECOMMENDATIONS: 1. Continue Airvo heated high flow and wean FiO2 to maintain oxygen saturations at or above 90%. 2. Continue Decadron to complete 10-day treatment course. 3. Continue scheduled IV diuretic therapy as tolerated by hemodynamics and renal function. 4. Encourage incentive spirometer use and mobilize patient as tolerated. IMPRESSIONS: 1. Acute hypoxemic respiratory failure secondary to COVID-19 pneumonia The patient has had increasing oxygen requirements over the course of his hospitalization. He has already completed a treatment course of remdesivir and will remain on Decadron with plans to complete 10 days of total treatment. Plan to continue supplemental oxygen to maintain saturations at or above 90%. I do suspect that the patient has underlying anxiety which is contributing to his shortness of breath and increased work of breathing. Attempts at gentle diuresis can be undertaken as tolerated by hemodynamics and renal function. 2. Elevated transaminases Unclear etiology. However, transaminases are improving. 3. Thrombocytosis Possibly reactive in etiology and related to underlying viral infection. Continue to monitor on a daily basis. 4. Obesity/hypertension/anxiety Complicates care, management, recovery and prognosis. Continue home medications as indicated. This note was generated with [employer] dictation software. It may contain incorrect words, spelling, and punctuation that were not noted in checking the note before signing. Inpatient E&M: [id number] [facility] [address]
[2020-06-03] MEDS: dexAMETHasone 4 MG Tablet 6 MG PO (08:54)
[2020-06-03] MEDS: Furosemide 40 MG/4 ML Vial IV ×2 (08:54→17:41)
[2020-06-03] MEDS: Enoxaparin 40 MG/0.4 ML Syringe SC (08:54)
[2020-06-03] MEDS: hydroCHLOROthiazide 25 MG Tablet PO (08:55)
[2020-06-03] MEDS: Metoprolol Tartrate 100 MG Tablet PO ×2 (08:55→21:34)
--- NOTE | 2020-06-03 09:37 | NURSING ---
Patient educated on benefits of prone positionong and assisted to prone position at this time to assist in oxygenation. O2 SAts currently at 94% on airvo at 60 L/min. Patient tolerating repositioning well and additional pillows provided
--- NOTE | 2020-06-03 09:56 | CON.PCM_ITS ---
- Problem List (1) Thrombocytosis Status: Acute (2) COVID-19 Status: Acute Consult Referring Physician: Hospitalist Consult Results: Reactive thrombocytosis Subjective Date of Service:: 06/03/20 Chief Complaint: HYPOXIA, COVID, PNEUMONITIS History of Present Illness: 40-year-old male admitted with COVID-19 pneumonia and noted to have acutely developed an increasing thrombocytosis, see table Laboratory Tests 05/23/20 05/28/20 05/29/20 16:00 05:06 05:40 Plt Count 170 281 384 05/31/20 06/01/20 06/02/20 08:05 05:06 06:20 Plt Count 522 H 564 H 788 H* 06/03/20 05:26 Plt Count 874 H* Past Medical/Surgical History: Past Medical History - Most Recent Inpatient Visit Past Medical History Start: 05/27/20 13:42 Text: Status: Complete Freq: ONCE Protocol: Document 05/27/20 14:00 NN (Rec: 05/27/20 14:03 NN [id number]) BMI Required to complete PMH What is Patient's BMI 32.2 Past Medical History Unable History Recalled Yes Query Text:Pt Unable/Family Not Present Neurologic Medical History Hx Stroke/TIA No Hx Dementia/Alzheimer's No Hx Parkinson's Disease No Hx Seizures No Hx Multiple Sclerosis No Hx Migraines No Cardiac Medical History VTE Present on Admission No Hx of Deep Vein Thrombosis/VTE/PE No Hx Hypertension Yes: MEDICATION Hx Chest Pain/Angina No Hx Heart Attack No Hx Cardiac Surgery/Stents/Etc. No Hx Heart Failure No Hx Pacemaker/AICD No Hx Irregular Heartbeat and/or Afib No Hx Anticoagulant Therapy No Query Text:(Coumadin, Aspirin, Plavix, Xarelto, etc.) Hx Pain in Legs when Walking/Leg Cramps No Respiratory Medical History Hx COPD No Hx Emphysema No Hx Smoking No Smoking Status Never smoker Hx Tobacco Use in last 12 months No Hx Sleep Apnea No Do you snore loudly (louder than talking No or can be heard through closed doors)? Do you often feel tired/ fatigued/ No sleepy during daytime? Has anyone observed you stop breathing No during sleep? STOP Results Negative GI Medical History Hx Ulcer No Hx Hepatitis No Hx Cirrhosis No Hx GI Bleed No Hx Unplanned Weight Loss No Genitourinary Medical History Indwelling Catheter in Place on Arrival/ No Admission Hx Renal Disease No Hx Dialysis No Musculoskeletal History Hx Arthritis No Endocrine Medical History Hx Diabetes No Hx Thyroid Disease No Hematologic Medical History Hx of Blood Transfusion No Hx of Transfusion in last 3 Months No Ever experience any problems with No transfusion(s)? Hx of Preganancy in last 3 Months N/A Nurse Filling Out Transfusion & NOREM Questions: Date: 05/27/20 Time: 14:02 Psycho/Social Medical History Hx Depression No Hx Anxiety No Hx Behavior Disorder No Hx Alcohol Use No Hx Substance Use No Other Medical History Hx Blood Disorders No Hx Anemia No Hx Cancer No Hx Drug Resistant Organism No Wound/Pressure Injury Present on Arrival No /Admission Query Text:If yes, chart assessment in Shift/Clinical Findings Central Line/PICC/VAD Present on Arrival No /Admission Antibiotics within last 7 days? No Methicillin Resistant Staphylococcus aureus Screening Active MRSA No Past Medical History (Last Updated 05/27/20 @ 13:[address] Jasen Stallings, DO) HTN (hypertension) (Chronic) Maternal Family History: - - no asthma - Social History Smoking Status: Never smoker Allergies/Adverse Reactions: Allergy/AdvReac Type Severity Reaction Status Date / Time erythromycin base AdvReac PT UNSURE Verified 05/27/20 09:14 OF REACTION Review of Systems Unable to obtain accurate/complete ROS d/t: Records reviewed in EMR, minimize Covid exposure to staff Vital Signs Temperature 97.1 F L 06/03/20 03:33 Temperature Source Oral 06/03/20 03:33 Pulse Rate 76 06/03/20 08:55 Pulse Strength Normal (2+) 06/02/20 22:35 Respiratory Rate 13 06/03/20 04:40 Respiratory Effort 06/03/20 03:30 Respiratory Depth Normal 06/03/20 03:30 Respiratory Pattern Normal 06/03/20 04:40 Blood Pressure 113/87 H 06/03/20 03:33 Blood Pressure Mean 95 06/03/20 03:33 Blood Pressure Source Monitor 06/03/20 03:33 Blood Pressure Position Semi-Fowlers 06/03/20 03:33 Blood Pressure Location Left Arm 06/03/20 03:33 Pulse Ox 95 06/03/20 04:40 Oxygen Delivery Method Airvo 06/03/20 03:33 Oxygen Flow Rate (L/min) 60 06/02/20 13:56 Fraction of Inspired Oxygen (FIO2) 54 06/03/20 04:40 Laboratory Data: Microbiology 05/31/20 10:20 Gram Stain - Final Sputum, Expectorated/Coughed Respiratory Culture - Final Laboratory Tests 06/03/20 06/03/20 06/02/20 Range/Units 05:26 05:26 06:20 WBC 12.3 H (4.4-11.0) K/mm3 RBC 5.44 (4.6-6.2) M/mm3 Hgb 15.9 (13.0-16.5) g/dL Hct 45.4 (40-54) % MCV 83.5 (80-94) fL MCH 29.2 (27.0-32.0) pg MCHC 35.0 (32-36) g/dL RDW Std Deviation 38.4 (35.1-43.9) fl RDW Coeff of Barbi 12.8 (11.6-14.6) % Plt Count 874 H* (150-450) K/mm3 MPV 9.3 (6.2-12.0) fl Neut % (Auto) Not Reportable Absolute Neuts (auto) 9.7 H (2.0-7.7) X10^3/uL Absolute Lymphs (auto) 1.80 (0.83-4.51) X10^3/uL Total Counted 100 (MANUAL DIFF) Neutrophils % (Manual) 79 H (47-70) % Lymphocytes % (Manual) 15 L (19-41) % Monocytes % (Manual) 5 (0-10) % Metamyelocytes % 1 (0-1) % Diff Path Review May foll Reviewed Platelet Estimate MKD INC (ADEQ) RBC Morphology NORM C+C (NORM C&C) NORMAL Sodium 134 L (136-145) mmol/L Potassium 4.3 (3.5-5.1) mmol/L Chloride 96 L (98-107) mmol/L Carbon Dioxide 26.0 (21.0-32.0) mmol/L Anion Gap 12 (5-15) BUN 31 H (7-18) mg/dL Creatinine 0.99 (0.70-1.30) mg/dL Estim Creat Clear Calc 81.39 ml/min Est GFR (MDRD) Af Amer 106 (>60) mL/min Est GFR (MDRD) Non-Af 88 (>60) mL/min BUN/Creatinine Ratio 31.2 H (10-20) RATIO Glucose 105 (74-106) mg/dL Calcium 9.3 (8.5-10.1) mg/dL Total Bilirubin 0.90 (0.20-1.00) mg/dL AST 20 (15-37) U/L ALT 95 H (16-61) U/L Alkaline Phosphatase 57 (45-117) U/L Total Protein 7.8 (6.4-8.2) g/dL Albumin 3.1 L (3.2-5.0) g/dL Globulin 4.7 H (2.2-4.2) g/dL Albumin/Globulin Ratio 0.7 L (0.9-2.4) RATIO Diagnostic Data: Diagnostic Data Chest CTA 05/27/20 13:41 IMPRESSION: Multifocal bilateral groundglass infiltrates as described. This is in keeping with the patient''s history of Covid. Electronically Signed: Armando Villafuerte MD at 15:03 EST , Service support , Chest X-Ray 06/01/20 14:25 IMPRESSION: Progressive bilateral pulmonary infiltrates. Electronically Signed: Armando Villafuerte MD at 14:49 EST , Service support , Assessment and Plan 40-year-old male admitted with acute COVID-19 pneumonia and developed an acute increasing thrombocytosis. The platelet count was normal on initial admission and gradually and rapidly increased consistent with acute phase reactant. Patient is receiving Lovenox for venous thromboembolic prophylaxis. Recommendations: 1-No specific interventions from the hematology aspect, treatment of acute illness should resolve the elevated platelet count. 2-patient on Lovenox prophylaxis. Discussed over the phone with Dr. Padilla. Jimmy Alex MD Events Director, [facility] Divisions of Medical Oncology & Hematology Department of Internal Medicine [place] [id number] This note was generated using a voice recognition system software. Although it was reviewed by the author prior to finalization, it may still contain incorrect words, spelling, and punctuation that were not noted when reviewing prior to saving. If a clinically significant typo or inaccurately typed phrase is noted, please notify the author. Primary Care Provider: Dr. Macario Sinha MD Referring Provider:
[2020-06-03 12:38] LABS: Pathologist Review Reviewed
[2020-06-03] MEDS: LORazepam 1 MG Tablet PO ×2 (13:33→21:34)
[2020-06-03] MEDS: 0.9% Saline Lock 10 ML Syringe IV (21:34)
[2020-06-03] MEDS: Zolpidem Tartrate 5 MG Tablet PO (22:40)
[2020-06-04] VITALS (18 sets, daily range): BP systolic 118–143; BP diastolic 69–92; PULSE 55–83; RESP 12–20; TEMP 36.2–36.6; O2SAT 93–96
--- NOTE | 2020-06-04 03:57 | CPS ---
changed water on AirVo
--- NOTE | 2020-06-04 06:39 | PN_ITS ---
Patient Problems: Active and Suspected Problems (Last Updated 05/27/20 @ 13:[address] Jasen Stallings, DO) COVID-19 (Acute) Thrombocytosis (Acute) Subjective: The patient was seen and examined at the bedside this morning. Events from the last 24 hours have been reviewed. The patient is currently afebrile, hemodynamically stable and maintaining appropriate oxygen saturations on Airvo heated high flow with an FiO2 requirement of 35%. The patient has completed his treatment course of remdesivir and remains on Decadron and IV diuretic therapy. Platelet count appears to have plateaued at 884,000. Objective: The patient's most recent lab work, culture data and imaging studies have all been personally reviewed. Sputum culture appears to be normal respiratory stacy. Strep and urine Legionella antigens were negative. - Physical Exam Vitals/I&O's: Vital Signs Temp Pulse Resp BP Pulse Ox 97.7 F L 70 14 119/86 H 93 06/04/20 03:50 06/04/20 04:46 06/04/20 03:55 06/04/20 03:50 06/04/20 03:55 Oxygen Flow Rate (L/min) 50 Oxygen Delivery Method Airvo Weight: 187 lb 13.341 oz Body Mass Index (BMI) 32.2 Intake and Output for Last 24 Hours 06/02/20 06/03/20 06/04/20 23:59 23:59 23:59 Intake Total 600 / 600 1350 / 1350 Output Total 1950 / 1950 Balance 600 / 600 -600 / -600 General: Alert, Cooperative, No apparent distress HEENT: Atraumatic, PERRLA, Normocephalic Oral: No Gingival or Mucosal Lesions/ Ulcerations Neck: Supple, No Nodes, Trachea Midline Lungs: No rhonchi, No wheeze, No rales, Diminished Cardiovascular: Regular rate, Regular Rhythm Abdomen: Bowel Sounds Present, Soft, Non Tender, Obese Extremities: No clubbing, No cyanosis, No edema Skin: No breakdown Musculoskeletal: No Tenderness to Palpation of Joints or Extremities Lymphatic: No Cervical, Supraclavicular, or Inguinal Adenopathy Neurological: Cranial nerves II-XII grossly intact, Neuro grossly intact Psych/Mental Status: Normal Affect Labs (Last 48 Hours) 06/02/20 06/02/20 06/03/20 06:20 06:20 05:26 WBC 12.4 H 12.3 H RBC 5.59 5.44 Hgb 15.7 15.9 Hct 46.9 45.4 MCV 83.9 83.5 MCH 28.1 29.2 MCHC 33.5 35.0 RDW Std Deviation 39.7 38.4 RDW Coeff of Barbi 13.0 12.8 Plt Count 788 H* 874 H* MPV 9.0 9.3 Neut % (Auto) Not Reportable Not Reportable Absolute Neuts (auto) 9.3 H 9.7 H Absolute Lymphs (auto) 1.86 1.80 Total Counted 100 100 Neutrophils % (Manual) 73 H 79 H Band Neutrophils % 2 Lymphocytes % (Manual) 15 L 15 L Monocytes % (Manual) 6 5 Metamyelocytes % 4 H 1 Diff Path Review Reviewed Reviewed Platelet Estimate MKD INC MKD INC RBC Morphology NORM C+C Sodium 134 L Potassium 3.6 Chloride 99 Carbon Dioxide 28.0 Anion Gap 7 BUN 27 H Creatinine 0.99 Estim Creat Clear Calc 81.39 Est GFR (MDRD) Af Amer 107 Est GFR (MDRD) Non-Af 88 BUN/Creatinine Ratio 27.4 H Glucose 108 H Calcium 9.0 Total Bilirubin 1.10 H AST 24 ALT 101 H Alkaline Phosphatase 54 Total Protein 8.3 H Albumin 3.0 L Globulin 5.3 H Albumin/Globulin Ratio 0.6 L 06/03/20 05:26 WBC RBC Hgb Hct MCV MCH MCHC RDW Std Deviation RDW Coeff of Barbi Plt Count MPV Neut % (Auto) Absolute Neuts (auto) Absolute Lymphs (auto) Total Counted Neutrophils % (Manual) Band Neutrophils % Lymphocytes % (Manual) Monocytes % (Manual) Metamyelocytes % Diff Path Review Platelet Estimate RBC Morphology Sodium 134 L Potassium 4.3 Chloride 96 L Carbon Dioxide 26.0 Anion Gap 12 BUN 31 H Creatinine 0.99 Estim Creat Clear Calc 81.39 Est GFR (MDRD) Af Amer 106 Est GFR (MDRD) Non-Af 88 BUN/Creatinine Ratio 31.2 H Glucose 105 Calcium 9.3 Total Bilirubin 0.90 AST 20 ALT 95 H Alkaline Phosphatase 57 Total Protein 7.8 Albumin 3.1 L Globulin 4.7 H Albumin/Globulin Ratio 0.7 L Microbiology 05/31/20 10:20 Sputum, Expectorated/Coughed Gram Stain - Final 05/31/20 10:20 Sputum, Expectorated/Coughed Respiratory Culture - Final Clinical Impression(s) from Imaging Studies Chest X-Ray 05/27/20 09:43 IMPRESSION: New bilateral pulmonary infiltrates at the lung bases. Electronically Signed: Armando Villafuerte MD at 10:30 EST , Service support , Chest CTA 05/27/20 13:41 IMPRESSION: Multifocal bilateral groundglass infiltrates as described. This is in keeping with the patient''s history of Covid. Electronically Signed: Armando Villafuerte MD at 15:03 EST , Service support , Chest X-Ray 06/01/20 14:25 IMPRESSION: Progressive bilateral pulmonary infiltrates. Electronically Signed: Armando Villafuerte MD at 14:49 EST , Service support , Current Medications Acetaminophen (Acetaminophen 325 Mg Tablet) 650 mg PO Q6H PRN PRN PRN Reason: Pain Score 1-10/Temp > 100.7 F Albuterol Sulfate (Albuterol Sulfate 8 Gm Inhaler (60 Puffs)) 2 puff INHALATION Q4H PRN PRN PRN Reason: SHORTNESS OF BREATH Last Admin: 06/01/20 09:59 Dose: 2 puff Documented by: Dexamethasone (Dexamethasone 4 Mg Tablet) 6 mg PO DAILY [facility] Stop: 06/05/20 23:55 Last Admin: 06/03/20 08:54 Dose: 6 mg Documented by: Enoxaparin Sodium (Enoxaparin 40 Mg/0.4 Ml Syringe) 40 mg SC DAILY [facility] Last Admin: 06/03/20 08:54 Dose: 40 mg Documented by: Furosemide (Furosemide 40 Mg/4 Ml Vial) 40 mg IV BID@1000,1800 [facility] Last Admin: 06/03/20 17:41 Dose: 40 mg Documented by: Hydrochlorothiazide (Hydrochlorothiazide 25 Mg Tablet) 25 mg PO DAILY [facility] Last Admin: 06/03/20 08:55 Dose: 25 mg Documented by: Sodium Chloride () 250 mls @ 15 mls/hr IV .[id number] PRN PRN Reason: Saline Flush Ibuprofen (Ibuprofen 400 Mg Tablet) 400 mg PO Q4H PRN PRN PRN Reason: Pain Score 1-10/Temp > 100.7 F Lorazepam (Lorazepam 1 Mg Tablet) 1 mg PO Q6H PRN PRN PRN Reason: ANXIETY Last Admin: 06/03/20 21:34 Dose: 1 mg Documented by: Metoprolol Tartrate (Metoprolol Tartrate 100 Mg Tablet) 100 mg PO BID SUSIE Last Admin: 06/03/20 21:34 Dose: 100 mg Documented by: Ondansetron HCl (Ondansetron 4 Mg/2 Ml Vial) 4 mg IV Q8H PRN PRN PRN Reason: NAUSEA/VOMITING Sodium Chloride (0.9% Saline Lock 10 Ml Syringe) 10 - 40 ml IV UD PRN PRN Reason: SALINE FLUSH Last Admin: 06/03/20 21:34 Dose: 10 ml Documented by: Zolpidem Tartrate (Zolpidem Tartrate 5 Mg Tablet) 5 mg PO QHS PRN PRN PRN Reason: INSOMNIA Last Admin: 06/03/20 22:40 Dose: 5 mg Documented by: Medical Necessity - Tobacco Use Smoking Status: Never smoker Assessment/Plan All Active Problems (Last Updated 05/27/20 @ 13:[address] Jasen Stallings, DO) COVID-19 (Acute) Thrombocytosis (Acute) RECOMMENDATIONS: 1. Continue Airvo heated high flow and wean FiO2 to maintain oxygen saturations at or above 90%. 2. The patient is likely okay to be transitioned to conventional nasal cannula supplemental oxygen. 3. Recommend de-escalating Lasix regimen to once daily. 4. Potassium repletion as ordered. 5. Continue Decadron to complete 10-day treatment course. 6. Encourage incentive spirometer use and mobilize patient as tolerated. IMPRESSIONS: 1. Acute hypoxemic respiratory failure secondary to COVID-19 pneumonia The patient has had increasing oxygen requirements over the course of his hospitalization. He has already completed a treatment course of remdesivir and will remain on Decadron with plans to complete 10 days of total treatment. Plan to continue supplemental oxygen to maintain saturations at or above 90%. I do suspect that the patient has underlying anxiety which is contributing to his shortness of breath and increased work of breathing. The patient has been responding well to diuretic therapy. However, given his sodium and chloride lev els this morning, will cut back to once daily dosing of diuretics. Continue to encourage incentive spirometer use and mobilize patient as tolerated. 2. Elevated transaminases Unclear etiology. However, transaminases are improving. 3. Thrombocytosis Possibly reactive in etiology and related to underlying viral infection. Continue to monitor on a daily basis. 4. Obesity/hypertension/anxiety Complicates care, management, recovery and prognosis. Continue home medications as indicated. This note was generated with [employer] dictation software. It may contain incorrect words, spelling, and punctuation that were not noted in checking the note before signing. Inpatient E&M: 33915 Subs Hosp L3
--- NOTE | 2020-06-04 07:39 | PCM.PN.HOSP ---
Patient Problems: Active and Suspected Problems (Last Updated 05/27/20 @ 13:[address] Jasen Stallings, DO) COVID-19 (Acute) Thrombocytosis (Acute) Subjective: Patient seen and examined. He had a good night and has no complaints this morning. Oxygen on AirVO decreased to 35 L. Has remained stable. Vitals/I&O's: Vital Signs Temp Pulse Resp BP Pulse Ox 97.7 F L 70 14 119/86 H 93 06/04/20 03:50 06/04/20 04:46 06/04/20 03:55 06/04/20 03:50 06/04/20 03:55 Oxygen Flow Rate (L/min) 50 Oxygen Delivery Method Airvo Weight: 187 lb 13.341 oz Body Mass Index (BMI) 32.2 Intake and Output for Last 24 Hours 06/02/20 06/03/20 06/04/20 23:59 23:59 23:59 Intake Total 600 / 600 1350 / 1350 Output Total 1950 / 1950 Balance 600 / 600 -600 / -600 General: Alert, Oriented x3, Cooperative, No apparent distress HEENT: Atraumatic, PERRLA, EOMI, Normocephalic Oral: Moist Mucosa Neck: Supple, No JVD, Negative Carotid Bruits Lungs: Clear to auscultation, Normal air movement, - - on AirVo at 35L of oxygen Cardiovascular: Regular rate, Regular Rhythm, Normal S1, Normal S2, No murmurs Abdomen: Bowel Sounds Present, Soft, Non Tender, Non-Distended, No Hepato-splenomegaly Extremities: No clubbing, No cyanosis, No edema, Capillary Refill Less than 3 Seconds Skin: No rashes, No breakdown Musculoskeletal: No Tenderness to Palpation of Joints or Extremities Lymphatic: No Cervical, Supraclavicular, or Inguinal Adenopathy Neurological: Cranial nerves II-XII grossly intact, Neuro grossly intact, Motor Exam 5/5 strength throughout Psych/Mental Status: Anxious, Alert and oriented to time, place, person, mood and affect Microbiology Past 72 Hours 05/31/20 10:20 Sputum, Expectorated/Coughed Gram Stain - Final 05/31/20 10:20 Sputum, Expectorated/Coughed Respiratory Culture - Final Laboratory Results 06/03/20 05:26: Diff Path Review Reviewed Current Medications Acetaminophen (Acetaminophen 325 Mg Tablet) 650 mg PO Q6H PRN PRN PRN Reason: Pain Score 1-10/Temp > 100.7 F Albuterol Sulfate (Albuterol Sulfate 8 Gm Inhaler (60 Puffs)) 2 puff INHALATION Q4H PRN PRN PRN Reason: SHORTNESS OF BREATH Last Admin: 06/01/20 09:59 Dose: 2 puff Documented by: Dexamethasone (Dexamethasone 4 Mg Tablet) 6 mg PO DAILY [facility] Stop: 06/05/20 23:55 Last Admin: 06/03/20 08:54 Dose: 6 mg Documented by: Enoxaparin Sodium (Enoxaparin 40 Mg/0.4 Ml Syringe) 40 mg SC DAILY [facility] Last Admin: 06/03/20 08:54 Dose: 40 mg Documented by: Furosemide (Furosemide 40 Mg/4 Ml Vial) 40 mg IV BID@1000,1800 [facility] Last Admin: 06/03/20 17:41 Dose: 40 mg Documented by: Hydrochlorothiazide (Hydrochlorothiazide 25 Mg Tablet) 25 mg PO DAILY [facility] Last Admin: 06/03/20 08:55 Dose: 25 mg Documented by: Sodium Chloride () 250 mls @ 15 mls/hr IV .[id number] PRN PRN Reason: Saline Flush Ibuprofen (Ibuprofen 400 Mg Tablet) 400 mg PO Q4H PRN PRN PRN Reason: Pain Score 1-10/Temp > 100.7 F Lorazepam (Lorazepam 1 Mg Tablet) 1 mg PO Q6H PRN PRN PRN Reason: ANXIETY Last Admin: 06/03/20 21:34 Dose: 1 mg Documented by: Metoprolol Tartrate (Metoprolol Tartrate 100 Mg Tablet) 100 mg PO BID [facility] Last Admin: 06/03/20 21:34 Dose: 100 mg Documented by: Ondansetron HCl (Ondansetron 4 Mg/2 Ml Vial) 4 mg IV Q8H PRN PRN PRN Reason: NAUSEA/VOMITING Sodium Chloride (0.9% Saline Lock 10 Ml Syringe) 10 - 40 ml IV UD PRN PRN Reason: SALINE FLUSH Last Admin: 06/03/20 21:34 Dose: 10 ml Documented by: Zolpidem Tartrate (Zolpidem Tartrate 5 Mg Tablet) 5 mg PO QHS PRN PRN PRN Reason: INSOMNIA Last Admin: 06/03/20 22:40 Dose: 5 mg Documented by: STROKE Vital Signs/Narrative: Vital Signs Temp Pulse Resp BP Pulse Ox 06/04/20 04:46 70 06/04/20 03:55 57 L 14 93 06/04/20 03:50 97.7 F L 64 16 119/86 H 96 Medical Necessity - Tobacco Use Smoking Status: Never smoker Assessment/Plan All Active Problems (Last Updated 05/27/20 @ 13:[address] Jasen Stallings, DO) COVID-19 (Acute) Thrombocytosis (Acute) # COVID 19 pneumonia diagnosed May 18. on dexamethasone. oxygen on AirVO reduced to 35L of oxygen now. titrate oxygen to maintain sats >90% breathing treatment with bronchodilators has completed remdesivir treatment. ceftriaxone and azithromycin discontinued respiratory cultures still pending. Urine for strep and legionella negative. pulmonology and ID on board #Acute hypoxic respiratory failure due to COVID 19 pneumonia now on AirVo as above. breathing treatment with bronchodilators #thrombocytosis: hematology consulted yesterday. I did speak to Dr Roman, who said that he felt this thrombocytosis was likely due to covid, as it had been normal previously. He didnt see the need to start patient on low dose aspirin now, anf felt that the lovenox 40mg daily would suffice for DVT prophylaxis. will trend the platelets. If it rises some more, will start on low dose aspirin- discussed with Dr Aviles today. #Hypokalemia: K is 2.9. Will replace and monitor # Transaminitis: resolved. DVT prophylaxis; lovenox 40mg daily Inpatient E&M: [id number] [facility] [[email or web address]] Hosp L3
[2020-06-04 08:15] LABS: Absolute Lymphocyte Count 1.58 X10^3/uL (0.83-4.51); Absolute Neutrophil Count 8.1 X10^3/uL (2.0-7.7); Basophil# 0.05 X10^3/uL; Basophil% 0.4 % (0-1); Eosinophils% 0.9 % (0-5); Hematocrit 45.4 % (40-54); Hemoglobin 15.8 g/dL (13.0-16.5); Lymphocyte # 1.58 X10^3/ul (4.0); Lymphocyte % 14.1 % (19-41); Mean Corp Hgb Conc 34.8 g/dL (32-36); Mean Corpuscular Hgb 28.5 pg (27.0-32.0); Mean Corpuscular Volume 81.9 fL (80-94); Mean Platelet Vol. 9.1 fl (6.2-12.0); NRBC Flagged by Analyzer 0 % (0-5); Neutrophil # 8.14 X10^3/uL (2.7-7.7); Neutrophil % 72.7 % (47-70); POSITIVE COUNT YES; Platelet Count 884 K/mm3 (150-450); RBC Distribution Width CV 12.4 % (11.6-14.6); Red Blood Count 5.54 M/mm3 (4.6-6.2); White Blood Count 11.2 K/mm3 (4.4-11.0)
[2020-06-04 08:17] LABS: Differential Indicated SCAN CRITERIA MET
[2020-06-04 08:39] LABS: Platelet Estimate MKD INC (ADEQ)
[2020-06-04 08:51] LABS: Anion Gap 7 (5-15); BUN 32 mg/dL (7-18); BUN/Creat Ratio 31.7 RATIO (10-20); Calcium,Total 9.3 mg/dL (8.5-10.1); Chloride 94 mmol/L (98-107); Creatinine, Serum 1.01 mg/dL (0.70-1.30); EST Glomerular Filtration Rate 86 mL/min (>60); Est Glom Filt Rate - Afr Amer 104 mL/min (>60); Estimated Creatinine Clearance 79.78 ml/min; Glucose 95 mg/dL (74-106); Potassium 2.9 mmol/L (3.5-5.1); Sodium Level 131 mmol/L (136-145)
[2020-06-04] MEDS: hydroCHLOROthiazide 25 MG Tablet PO (09:24)
[2020-06-04] MEDS: Metoprolol Tartrate 100 MG Tablet PO ×2 (09:24→21:28)
[2020-06-04] MEDS: dexAMETHasone 4 MG Tablet 6 MG PO (09:24)
[2020-06-04] MEDS: Enoxaparin 40 MG/0.4 ML Syringe SC (09:25)
[2020-06-04] MEDS: Furosemide 40 MG/4 ML Vial IV (09:25)
[2020-06-04] MEDS: Potassium Chloride 10mEq/100mL 10 MEQ/100 ML IV.SOLN. 100 MEQ IV BOLUS ×4 (12:41→17:30)
[2020-06-04] MEDS: LORazepam 1 MG Tablet PO ×2 (13:06→21:28)
--- NOTE | 2020-06-04 15:52 | PCM.PN.ID ---
Patient Problems: Active and Suspected Problems (Last Updated 05/27/20 @ 13:[address] Jasen Stallings, DO) COVID-19 (Acute) Thrombocytosis (Acute) Subjective: Feeling better, less dyspnea, no fever, no n/v/d - Physical Exam Vitals/I&O's: Vital Signs Temp Pulse Resp BP Pulse Ox 97.2 F L 74 19 H 133/92 H 95 06/04/20 09:30 06/04/20 09:30 06/04/20 09:30 06/04/20 09:30 06/04/20 11:40 Oxygen Flow Rate (L/min) 5 Oxygen Delivery Method Nasal Cannula Weight: 85.2 kg Body Mass Index (BMI) 32.2 Intake and Output for Last 24 Hours 06/02/20 06/03/20 06/04/20 23:59 23:59 23:59 Intake Total 600 / 600 1350 / 1350 200 / 200 Output Total 1950 / 1950 Balance 600 / 600 -600 / -600 200 / 200 General: Alert, Cooperative, No apparent distress Lungs: Diminished Cardiovascular: Regular rate, Regular Rhythm Abdomen: Soft, Non Tender, Non-Distended Skin: No rashes Microbiology Past 72 Hours 05/31/20 10:20 Sputum, Expectorated/Coughed Gram Stain - Final 05/31/20 10:20 Sputum, Expectorated/Coughed Respiratory Culture - Final Laboratory Results 06/04/20 08:00: WBC 11.2 H, RBC 5.54, Hgb 15.8, Hct 45.4, MCV 81.9, MCH 28.5, MCHC 34.8, RDW Std Deviation 37.0, RDW Coeff of Barbi 12.4, Plt Count 884 H*, MPV 9.1, Immature Gran % (Auto) 3.900 H, Neut % (Auto) 72.7 H, Lymph % (Auto) 14.1 L, Bullock % (Auto) 8.0, Eos % (Auto) 0.9, Baso % (Auto) 0.4, Absolute Neuts (auto) 8.1 H, Absolute Lymphs (auto) 1.58, Nucleated RBC % 0, Diff Path Review September, Platelet Estimate MKD INC 06/04/20 08:00: Sodium 131 L, Potassium 2.9 L, Chloride 94 L, Carbon Dioxide 30.0, Anion Gap 7, BUN 32 H, Creatinine 1.01, Estim Creat Clear Calc 79.78, Est GFR (MDRD) Af Amer 104, Est GFR (MDRD) Non-Af 86, BUN/Creatinine Ratio 31.7 H, Glucose 95, Calcium 9.3 Current Medications Acetaminophen (Acetaminophen 325 Mg Tablet) 650 mg PO Q6H PRN PRN PRN Reason: Pain Score 1-10/Temp > 100.7 F Albuterol Sulfate (Albuterol Sulfate 8 Gm Inhaler (60 Puffs)) 2 puff INHALATION Q4H PRN PRN PRN Reason: SHORTNESS OF BREATH Last Admin: 06/01/20 09:59 Dose: 2 puff Documented by: Dexamethasone (Dexamethasone 4 Mg Tablet) 6 mg PO DAILY [facility] Stop: 06/05/20 23:55 Last Admin: 06/04/20 09:24 Dose: 6 mg Documented by: Enoxaparin Sodium (Enoxaparin 40 Mg/0.4 Ml Syringe) 40 mg SC DAILY [facility] Last Admin: 06/04/20 09:25 Dose: 40 mg Documented by: Furosemide (Furosemide 40 Mg/4 Ml Vial) 40 mg IV DAILY [facility] Hydrochlorothiazide (Hydrochlorothiazide 25 Mg Tablet) 25 mg PO DAILY [facility] Last Admin: 06/04/20 09:24 Dose: 25 mg Documented by: Sodium Chloride () 250 mls @ 15 mls/hr IV .[id number] PRN PRN Reason: Saline Flush Ibuprofen (Ibuprofen 400 Mg Tablet) 400 mg PO Q4H PRN PRN PRN Reason: Pain Score 1-10/Temp > 100.7 F Lorazepam (Lorazepam 1 Mg Tablet) 1 mg PO Q6H PRN PRN PRN Reason: ANXIETY Last Admin: 06/04/20 13:06 Dose: 1 mg Documented by: Metoprolol Tartrate (Metoprolol Tartrate 100 Mg Tablet) 100 mg PO BID [facility] Last Admin: 06/04/20 09:24 Dose: 100 mg Documented by: Ondansetron HCl (Ondansetron 4 Mg/2 Ml Vial) 4 mg IV Q8H PRN PRN PRN Reason: NAUSEA/VOMITING Sodium Chloride (0.9% Saline Lock 10 Ml Syringe) 10 - 40 ml IV UD PRN PRN Reason: SALINE FLUSH Last Admin: 06/03/20 21:34 Dose: 10 ml Documented by: Zolpidem Tartrate (Zolpidem Tartrate 5 Mg Tablet) 5 mg PO QHS PRN PRN PRN Reason: INSOMNIA Last Admin: 06/03/20 22:40 Dose: 5 mg Documented by: Medical Necessity - Tobacco Use Smoking Status: Never smoker Route of nutrition/ use of supplements: [] Nutritional Intake: [] IV Site: [] Hassan Catheter: [] - Assessment/Plan Antibiotics: [] Assessment/Plan: [] Active and Suspected Problems (Last Updated 05/27/20 @ 13:[address] Jasen Stallings, DO) COVID-19 (Acute) covid with hypoxia - d-dimer 0.5, CT neg for PE. Sx started around 2 weeks prior to admit. On dex, remdesivir, lovenox 40mg daily. O2 improved, feeling better. Plan on 20 days of quarantine from start of symptoms. 10 days total of dex. Will follow
[2020-06-04] MEDS: Zolpidem Tartrate 5 MG Tablet PO (21:28)
[2020-06-04] MEDS: 0.9% Saline Lock 10 ML Syringe IV (21:29)
[2020-06-05] VITALS (13 sets, daily range): BP systolic 109–132; BP diastolic 70–78; PULSE 64–99; RESP 18; TEMP 36.6–36.9; O2SAT 92–95
--- NOTE | 2020-06-05 05:55 | PN_ITS ---
Patient Problems: Active and Suspected Problems (Last Updated 05/27/20 @ 13:[address] Jasen Stallings, DO) COVID-19 (Acute) Thrombocytosis (Acute) Subjective: The patient was seen and examined at the bedside this morning. Events from the last 24 hours have been reviewed. The patient is currently afebrile, hemodynamically stable and maintaining appropriate oxygen saturations on 2 L/min via nasal cannula. The patient has completed his treatment course of remdesivir and remains on Decadron and diuretics. He is currently documented to be overall net +6.1 L for the hospital admission. The patient feels overall improved from a clinical perspective. Platelet count has decreased a bit this morning to 835,000. Objective: The patient's most recent lab work, culture data and imaging studies have all been personally reviewed. Sputum culture appears to be normal respiratory stacy. Strep and urine Legionella antigens were negative. - Physical Exam Vitals/I&O's: Vital Signs Temp Pulse Resp BP Pulse Ox 98.5 F 73 18 109/70 95 06/05/20 03:33 06/05/20 04:12 06/05/20 03:33 06/05/20 03:33 06/05/20 03:33 Oxygen Flow Rate (L/min) 2 Oxygen Delivery Method Nasal Cannula Weight: 187 lb 13.341 oz Body Mass Index (BMI) 32.2 Intake and Output for Last 24 Hours 06/03/20 06/04/20 06/05/20 23:59 23:59 23:59 Intake Total 1350 / 1350 1650 / 1650 400 / 400 Output Total 1950 / 1950 1600 / 1600 700 / 700 Balance -600 / -600 50 / 50 -300 / -300 General: Alert, Cooperative, No apparent distress HEENT: Atraumatic, Normocephalic Oral: No Gingival or Mucosal Lesions/ Ulcerations Neck: Supple, No Nodes, Trachea Midline Lungs: No rhonchi, No wheeze, No rales, Diminished Cardiovascular: Regular rate, Regular Rhythm Abdomen: Bowel Sounds Present, Soft, Non Tender Extremities: No clubbing, No cyanosis, No edema Skin: - - No significant change from previous Musculoskeletal: No Tenderness to Palpation of Joints or Extremities Lymphatic: No Cervical, Supraclavicular, or Inguinal Adenopathy Neurological: Cranial nerves II-XII grossly intact, Neuro grossly intact Psych/Mental Status: Flat Affect Labs (Last 48 Hours) 06/03/20 06/03/20 06/04/20 05:26 05:26 08:00 WBC 12.3 H 11.2 H RBC 5.44 5.54 Hgb 15.9 15.8 Hct 45.4 45.4 MCV 83.5 81.9 MCH 29.2 28.5 MCHC 35.0 34.8 RDW Std Deviation 38.4 37.0 RDW Coeff of Barbi 12.8 12.4 Plt Count 874 H* 884 H* MPV 9.3 9.1 Immature Gran % (Auto) 3.900 H Neut % (Auto) Not Reportable 72.7 H Lymph % (Auto) 14.1 L [place] % (Auto) 8.0 Eos % (Auto) 0.9 Baso % (Auto) 0.4 Absolute Neuts (auto) 9.7 H 8.1 H Absolute Lymphs (auto) 1.80 1.58 Total Counted 100 Neutrophils % (Manual) 79 H Lymphocytes % (Manual) 15 L Monocytes % (Manual) 5 Metamyelocytes % 1 Nucleated RBC % 0 Diff Path Review Reviewed September foll Platelet Estimate MKD INC MKD INC RBC Morphology NORM C+C Sodium 134 L Potassium 4.3 Chloride 96 L Carbon Dioxide 26.0 Anion Gap 12 BUN 31 H Creatinine 0.99 Estim Creat Clear Calc 81.39 Est GFR (MDRD) Af Amer 106 Est GFR (MDRD) Non-Af 88 BUN/Creatinine Ratio 31.2 H Glucose 105 Calcium 9.3 Total Bilirubin 0.90 AST 20 ALT 95 H Alkaline Phosphatase 57 Total Protein 7.8 Albumin 3.1 L Globulin 4.7 H Albumin/Globulin Ratio 0.7 L 06/04/20 08:00 WBC RBC Hgb Hct MCV MCH MCHC RDW Std Deviation RDW Coeff of Barbi Plt Count MPV Immature Gran % (Auto) Neut % (Auto) Lymph % (Auto) [place] % (Auto) Eos % (Auto) Baso % (Auto) Absolute Neuts (auto) Absolute Lymphs (auto) Total Counted Neutrophils % (Manual) Lymphocytes % (Manual) Monocytes % (Manual) Metamyelocytes % Nucleated RBC % Diff Path Review Platelet Estimate RBC Morphology Sodium 131 L Potassium 2.9 L Chloride 94 L Carbon Dioxide 30.0 Anion Gap 7 BUN 32 H Creatinine 1.01 Estim Creat Clear Calc 79.78 Est GFR (MDRD) Af Amer 104 Est GFR (MDRD) Non-Af 86 BUN/Creatinine Ratio 31.7 H Glucose 95 Calcium 9.3 Total Bilirubin AST ALT Alkaline Phosphatase Total Protein Albumin Globulin Albumin/Globulin Ratio Clinical Impression(s) from Imaging Studies Chest X-Ray 05/27/20 09:43 IMPRESSION: New bilateral pulmonary infiltrates at the lung bases. Electronically Signed: Armando Villafuerte MD at 10:30 EST , Service support , Chest CTA 05/27/20 13:41 IMPRESSION: Multifocal bilateral groundglass infiltrates as described. This is in keeping with the patient''s history of Covid. Electronically Signed: Armando Villafuerte MD at 15:03 EST , Service support , Chest X-Ray 06/01/20 14:25 IMPRESSION: Progressive bilateral pulmonary infiltrates. Electronically Signed: Armando Villafuerte MD at 14:49 EST , Service support , Current Medications Acetaminophen (Acetaminophen 325 Mg Tablet) 650 mg PO Q6H PRN PRN PRN Reason: Pain Score 1-10/Temp > 100.7 F Albuterol Sulfate (Albuterol Sulfate 8 Gm Inhaler (60 Puffs)) 2 puff INHALATION Q4H PRN PRN PRN Reason: SHORTNESS OF BREATH Last Admin: 06/01/20 09:59 Dose: 2 puff Documented by: Dexamethasone (Dexamethasone 4 Mg Tablet) 6 mg PO DAILY [facility] Stop: 06/05/20 23:55 Last Admin: 06/04/20 09:24 Dose: 6 mg Documented by: Enoxaparin Sodium (Enoxaparin 40 Mg/0.4 Ml Syringe) 40 mg SC DAILY [facility] Last Admin: 06/04/20 09:25 Dose: 40 mg Documented by: Furosemide (Furosemide 40 Mg/4 Ml Vial) 40 mg IV DAILY [facility] Hydrochlorothiazide (Hydrochlorothiazide 25 Mg Tablet) 25 mg PO DAILY [facility] Last Admin: 06/04/20 09:24 Dose: 25 mg Documented by: Sodium Chloride () 250 mls @ 15 mls/hr IV .[id number] PRN PRN Reason: Saline Flush Ibuprofen (Ibuprofen 400 Mg Tablet) 400 mg PO Q4H PRN PRN PRN Reason: Pain Score 1-10/Temp > 100.7 F Lorazepam (Lorazepam 1 Mg Tablet) 1 mg PO Q6H PRN PRN PRN Reason: ANXIETY Last Admin: 06/04/20 21:28 Dose: 1 mg Documented by: Metoprolol Tartrate (Metoprolol Tartrate 100 Mg Tablet) 100 mg PO BID [facility] Last Admin: 06/04/20 21:28 Dose: 100 mg Documented by: Ondansetron HCl (Ondansetron 4 Mg/2 Ml Vial) 4 mg IV Q8H PRN PRN PRN Reason: NAUSEA/VOMITING Sodium Chloride (0.9% Saline Lock 10 Ml Syringe) 10 - 40 ml IV UD PRN PRN Reason: SALINE FLUSH Last Admin: 06/04/20 21:29 Dose: 10 ml Documented by: Zolpidem Tartrate (Zolpidem Tartrate 5 Mg Tablet) 5 mg PO QHS PRN PRN PRN Reason: INSOMNIA Last Admin: 06/04/20 21:28 Dose: 5 mg Documented by: Medical Necessity - Tobacco Use Smoking Status: Never smoker Assessment/Plan All Active Problems (Last Updated 05/27/20 @ 13:[address] Jasen Stallings, DO) COVID-19 (Acute) Thrombocytosis (Acute) RECOMMENDATIONS: 1. Continue to wean supplemental oxygen to maintain saturations at or above 90%. 2. Continue diuretics as tolerated by hemodynamics and renal function. 3. Continue Decadron to complete 10-day treatment course. 4. Encourage incentive spirometer use and mobilize patient as tolerated. 5. The patient is stable for discharge home with supplemental oxygen from my perspective. 6. Will sign off from a pulmonary perspective. Please call with any additional questions. IMPRESSIONS: 1. Acute hypoxemic respiratory failure secondary to COVID-19 pneumonia The patient has had increasing oxygen requirements over the course of his hospitalization. He has already completed a treatment course of remdesivir and will remain on Decadron with plans to complete 10 days of total treatment. Plan to continue supplemental oxygen to maintain saturations at or above 90%. I do suspect that the patient has underlying anxiety which is contributing to his shortness of breath and increased work of breathing. The patient has been responding well to diuretic therapy. Continue to encourage incentive spirometer use and mobilize patient as tolerated. 2. Elevated transaminases Unclear etiology. However, transaminases are improving. 3. Thrombocytosis Possibly reactive in etiology and related to underlying viral infection. Continue to monitor on a daily basis. 4. Obesity/hypertension/anxiety Complicates care, management, recovery and prognosis. Continue home medications as indicated. This note was generated with [employer] dictation software. It may contain incorrect words, spelling, and punctuation that were not noted in checking the note before signing. Inpatient E&M: 47564 Subs Hosp L2
[2020-06-05 06:34] LABS: Absolute Lymphocyte Count 1.56 X10^3/uL (0.83-4.51); Absolute Neutrophil Count 8.5 X10^3/uL (2.0-7.7); Basophil# 0.01 X10^3/uL; Basophil% 0.1 % (0-1); Eosinophil# 0.04 X10^3/uL; Eosinophils% 0.4 % (0-5); Hematocrit 44.9 % (40-54); Hemoglobin 15.6 g/dL (13.0-16.5); Lymphocyte # 1.56 X10^3/ul (4.0); Lymphocyte % 13.7 % (19-41); Mean Corp Hgb Conc 34.7 g/dL (32-36); Mean Corpuscular Hgb 28.9 pg (27.0-32.0); Mean Corpuscular Volume 83.1 fL (80-94); Mean Platelet Vol. 9.3 fl (6.2-12.0); Monocyte# 0.96 X10^3/uL; Monocyte% 8.5 % (0-10); NRBC Flagged by Analyzer 0 % (0-5); Neutrophil # 8.52 X10^3/uL (2.7-7.7); Neutrophil % 74.9 % (47-70); POSITIVE COUNT YES; RBC Distribution Width CV 12.5 % (11.6-14.6); RBC Distribution Width SD 38.1 fl (35.1-43.9); White Blood Count 11.4 K/mm3 (4.4-11.0)
[2020-06-05 06:56] LABS: Differential Indicated SCAN CRITERIA MET; Platelet Count 835 K/mm3 (150-450)
[2020-06-05 07:07] LABS: ALB/GLOB Ratio 0.5 RATIO (0.9-2.4); AST(SGOT) 26 U/L (15-37); Alanine Aminotransfer ALT/SGPT 94 U/L (16-61); Albumin, Serum 2.5 g/dL (3.2-5.0); Alkaline Phosphatase 53 U/L (45-117); Anion Gap 11 (5-15); BUN 27 mg/dL (7-18); BUN/Creat Ratio 30.2 RATIO (10-20); Calcium,Total 8.5 mg/dL (8.5-10.1); Chloride 95 mmol/L (98-107); Creatinine, Serum 0.89 mg/dL (0.70-1.30); EST Glomerular Filtration Rate 99 mL/min (>60); Est Glom Filt Rate - Afr Amer 120 mL/min (>60); Estimated Creatinine Clearance 90.54 ml/min; Globulin 5.3 g/dL (2.2-4.2); Glucose 79 mg/dL (74-106); Potassium 3.4 mmol/L (3.5-5.1); Protein, Total 7.8 g/dL (6.4-8.2); Sodium Level 131 mmol/L (136-145)
[2020-06-05 07:13] LABS: Differential Comment SCANNED
[2020-06-05] MEDS: LORazepam 1 MG Tablet PO ×3 (10:34→23:03)
[2020-06-05] MEDS: Metoprolol Tartrate 100 MG Tablet PO ×2 (10:34→21:03)
[2020-06-05] MEDS: dexAMETHasone 4 MG Tablet 6 MG PO (10:34)
[2020-06-05] MEDS: hydroCHLOROthiazide 25 MG Tablet PO (10:35)
[2020-06-05] MEDS: Enoxaparin 40 MG/0.4 ML Syringe SC (10:35)
--- NOTE | 2020-06-05 11:22 | PN_ITS ---
Patient Problems: Active and Suspected Problems (Last Updated 05/27/20 @ 13:[address] Jasen Stallings, DO) COVID-19 (Acute) Thrombocytosis (Acute) Subjective: Patient seen and examined. He is now on 2L of oxygen and he feels well. Review of systems is otherwise negative. Patient says he prefers to go home tomorrow. Vitals/I&O's: Vital Signs Temp Pulse Resp BP Pulse Ox 98.0 F 95 18 132/78 H 94 06/05/20 10:45 06/05/20 10:45 06/05/20 10:45 06/05/20 10:45 06/05/20 10:45 Oxygen Flow Rate (L/min) 2 Oxygen Delivery Method Nasal Cannula Weight: 187 lb 13.341 oz Body Mass Index (BMI) 32.2 Intake and Output for Last 24 Hours 06/03/20 06/04/20 06/05/20 23:59 23:59 23:59 Intake Total 1350 / 1350 1650 / 1650 400 / 400 Output Total 1950 / 1950 1600 / 1600 700 / 700 Balance -600 / -600 50 / 50 -300 / -300 General: Alert, Oriented x3, Cooperative, No apparent distress HEENT: Atraumatic, PERRLA, EOMI, Normocephalic Oral: Moist Mucosa Neck: Supple, No JVD, Negative Carotid Bruits Lungs: Clear to auscultation, Normal air movement, - - on 2L of oxygen Cardiovascular: Regular rate, Regular Rhythm, Normal S1, Normal S2, No murmurs Abdomen: Bowel Sounds Present, Soft, Non Tender, Non-Distended, No Hepato- splenomegaly Extremities: No clubbing, No cyanosis, No edema, Capillary Refill Less than 3 Seconds Skin: No rashes, No breakdown Musculoskeletal: No Tenderness to Palpation of Joints or Extremities Lymphatic: No Cervical, Supraclavicular, or Inguinal Adenopathy Neurological: Cranial nerves II-XII grossly intact, Neuro grossly intact, Motor Exam 5/5 strength throughout Psych/Mental Status: Anxious, Alert and oriented to time, place, person, mood and affect Microbiology Past 72 Hours 05/31/20 10:20 Sputum, Expectorated/Coughed Gram Stain - Final 05/31/20 10:20 Sputum, Expectorated/Coughed Respiratory Culture - Final Laboratory Results 06/05/20 05:52: WBC 11.4 H, RBC 5.40, Hgb 15.6, Hct 44.9, MCV 83.1, MCH 28.9, MCHC 34.7, RDW Std Deviation 38.1, RDW Coeff of Barbi 12.5, Plt Count 835 H*, MPV 9.3, Immature Gran % (Auto) 2.400 H, Neut % (Auto) 74.9 H, Lymph % (Auto) 13.7 L , [place] % (Auto) 8.5, Eos % (Auto) 0.4, Baso % (Auto) 0.1, Absolute Neuts (auto) 8.5 H, Absolute Lymphs (auto) 1.56, Nucleated RBC % 0, Differential Comment SCANNED, Diff Path Review September06/05/20 05:52: Sodium 131 L, Potassium 3.4 L, Chloride 95 L, Carbon Dioxide 25.0, Anion Gap 11, BUN 27 H, Creatinine 0.89, Estim Creat Clear Calc 90.54, Est GFR (MDRD) Af Amer 120, Est GFR (MDRD) Non-Af 99, BUN/Creatinine Ratio 30.2 H, Glucose 79, Calcium 8.5, Total Bilirubin 1.20 H, AST 26, ALT 94 H, Alkaline Phosphatase 53, Total Protein 7.8, Albumin 2.5 L, Globulin 5.3 H, Albumin/Globulin Ratio 0.5 L Diagnostic Data Chest CTA 05/27/20 13:41 IMPRESSION: Multifocal bilateral groundglass infiltrates as described. This is in keeping with the patient''s history of Covid. Electronically Signed: Armando Villafuerte MD at 15:03 EST , Service support , Chest X-Ray 06/01/20 14:25 IMPRESSION: Progressive bilateral pulmonary infiltrates. Electronically Signed: Armando Villafuerte MD at 14:49 EST , Service support , Current Medications Acetaminophen (Acetaminophen 325 Mg Tablet) 650 mg PO Q6H PRN PRN PRN Reason: Pain Score 1-10/Temp > 100.7 F Albuterol Sulfate (Albuterol Sulfate 8 Gm Inhaler (60 Puffs)) 2 puff INHALATION Q4H PRN PRN PRN Reason: SHORTNESS OF BREATH Last Admin: 06/01/20 09:59 Dose: 2 puff Documented by: Dexamethasone (Dexamethasone 4 Mg Tablet) 6 mg PO DAILY [facility] [place] Stop: 06/05/20 23:55 Last Admin: 06/05/20 10:34 Dose: 6 mg Documented by: Enoxaparin Sodium (Enoxaparin 40 Mg/0.4 Ml Syringe) 40 mg SC DAILY [facility] [place] Last Admin: 06/05/20 10:35 Dose: 40 mg Documented by: Hydrochlorothiazide (Hydrochlorothiazide 25 Mg Tablet) 25 mg PO DAILY [facility] [place] Last Admin: 06/05/20 10:35 Dose: 25 mg Documented by: Sodium Chloride () 250 mls @ 15 mls/hr IV .[id number] PRN PRN Reason: Saline Flush Ibuprofen (Ibuprofen 400 Mg Tablet) 400 mg PO Q4H PRN PRN PRN Reason: Pain Score 1-10/Temp > 100.7 F Lorazepam (Lorazepam 1 Mg Tablet) 1 mg PO Q6H PRN PRN PRN Reason: ANXIETY Last Admin: 06/05/20 10:34 Dose: 1 mg Documented by: Metoprolol Tartrate (Metoprolol Tartrate 100 Mg Tablet) 100 mg PO BID [facility] [place] Last Admin: 06/05/20 10:34 Dose: 100 mg Documented by: Ondansetron HCl (Ondansetron 4 Mg/2 Ml Vial) 4 mg IV Q8H PRN PRN PRN Reason: NAUSEA/VOMITING Sodium Chloride (0.9% Saline Lock 10 Ml Syringe) 10 - 40 ml IV UD PRN PRN Reason: SALINE FLUSH Last Admin: 06/04/20 21:29 Dose: 10 ml Documented by: Zolpidem Tartrate (Zolpidem Tartrate 5 Mg Tablet) 5 mg PO QHS PRN PRN PRN Reason: INSOMNIA Last Admin: 06/04/20 21:28 Dose: 5 mg Documented by: STROKE Vital Signs/Narrative: Vital Signs Temp Pulse Resp BP Pulse Ox 06/05/20 10:45 98.0 F 95 18 132/78 H 94 06/05/20 10:34 77 Medical Necessity - Tobacco Use Smoking Status: Never smoker Assessment/Plan All Active Problems (Last Updated 05/27/20 @ 13:[address] Jasen Stallings, DO) COVID-19 (Acute) Thrombocytosis (Acute) # COVID 19 pneumonia * diagnosed May 18. * on dexamethasone now on 2L of oxygen by nasal canula * titrate oxygen to maintain sats >90% * breathing treatment with bronchodilators * has completed remdesivir treatment. * ceftriaxone and azithromycin discontinued * respiratory cultures still pending. Urine for strep and legionella negative. * pulmonology and ID on board * #Acute hypoxic respiratory failure due to COVID 19 pneumonia * now down to 2L of oxygen * breathing treatment with bronchodilators * #thrombocytosis: * platelets have trended down to 835 today * hematology on board; feel it is an acute phase reactant to COVID and respiratory failure, and there is no need for aspirin, as platelets will likely trend downwards, with resolution of acute infection, per hematology * will hold off on aspirin now since platelets have started trending down * #Hypokalemia: K is 3.4 today. Will replace and monitor. # Transaminitis: resolved. DVT prophylaxis; lovenox 40mg daily Disposition; for likely DC tomorrow Inpatient E&M: 81939 Subs Hosp L2
[2020-06-05] MEDS: Zolpidem Tartrate 5 MG Tablet PO (23:06)
[2020-06-06] VITALS (8 sets, daily range): BP systolic 107–134; BP diastolic 68–79; PULSE 56–85; RESP 18; TEMP 36.7; O2SAT 83–95
[2020-06-06 06:21] LABS: Absolute Lymphocyte Count 1.49 X10^3/uL (0.83-4.51); Absolute Neutrophil Count 8.1 X10^3/uL (2.0-7.7); Basophil# 0.04 X10^3/uL; Basophil% 0.4 % (0-1); Eosinophil# 0.02 X10^3/uL; Eosinophils% 0.2 % (0-5); Hemoglobin 14.5 g/dL (13.0-16.5); Lymphocyte # 1.49 X10^3/ul (4.0); Lymphocyte % 13.8 % (19-41); Mean Corp Hgb Conc 34.5 g/dL (32-36); Mean Corpuscular Hgb 28.7 pg (27.0-32.0); Mean Corpuscular Volume 83.2 fL (80-94); Mean Platelet Vol. 9.4 fl (6.2-12.0); Monocyte# 0.88 X10^3/uL; Monocyte% 8.2 % (0-10); NRBC Flagged by Analyzer 0 % (0-5); Neutrophil # 8.08 X10^3/uL (2.7-7.7); Neutrophil % 75.1 % (47-70); Platelet Count 719 K/mm3 (150-450); RBC Distribution Width CV 12.4 % (11.6-14.6); RBC Distribution Width SD 37.3 fl (35.1-43.9); Red Blood Count 5.05 M/mm3 (4.6-6.2); White Blood Count 10.8 K/mm3 (4.4-11.0)
[2020-06-06 06:48] LABS: ALB/GLOB Ratio 0.6 RATIO (0.9-2.4); AST(SGOT) 20 U/L (15-37); Alanine Aminotransfer ALT/SGPT 94 U/L (16-61); Albumin, Serum 2.7 g/dL (3.2-5.0); Alkaline Phosphatase 48 U/L (45-117); Anion Gap 8 (5-15); BUN 22 mg/dL (7-18); BUN/Creat Ratio 26.2 RATIO (10-20); Calcium,Total 8.8 mg/dL (8.5-10.1); Chloride 98 mmol/L (98-107); Creatinine, Serum 0.84 mg/dL (0.70-1.30); EST Glomerular Filtration Rate 106 mL/min (>60); Est Glom Filt Rate - Afr Amer 129 mL/min (>60); Estimated Creatinine Clearance 95.93 ml/min; Globulin 4.5 g/dL (2.2-4.2); Glucose 88 mg/dL (74-106); Potassium 3.5 mmol/L (3.5-5.1); Protein, Total 7.2 g/dL (6.4-8.2); Sodium Level 133 mmol/L (136-145)
[2020-06-06] MEDS: LORazepam 1 MG Tablet PO (09:51)
[2020-06-06] MEDS: Metoprolol Tartrate 100 MG Tablet PO (09:51)
[2020-06-06] MEDS: hydroCHLOROthiazide 25 MG Tablet PO (09:51)
[2020-06-06] MEDS: Enoxaparin 40 MG/0.4 ML Syringe SC (09:51)
--- NOTE | 2020-06-06 10:18 | DCINST_ITS ---
- Discharge Diagnoses Current Active Problems: Current Active and Chronic Problems (Last Updated 05/27/20 @ 13:[address] Jasen Stallings DO) COVID-19 (Acute) Thrombocytosis (Acute) You will use the following diet at home:: Cardiac Your food should be the consistency of: Regular Your liquids should be the consistency of: Regular/Thin Discharge Activity: Return to Normal Activity Weight Bearing Status: Weight bearing as tolerated Call your doctor if you observe: Fever of 101 or Higher, Shortness of breath, Dizziness, Fainting spells Instructions: Coronavirus Disease 2019 (COVID-19): Overview, Coronavirus Disease 2019 (COVID-19): Caring for Yourself or Others Additional Instructions: use 3L of oxygen as needed for shortness of breath. To remain in self isolation till June 08, 2020, to complete 21 day self isolation since diagnosis. Allergies/Adverse Reactions: Allergies erythromycin base Adverse Reaction (Verified 05/27/20 09:14) PT UNSURE OF REACTION Medications to take at Discharge Hydrochlorothiazide [Hctz] 25 mg PO DAILY 05/23/20 Metoprolol Tartrate [Lopressor (beta harpreet)] 100 mg PO BID 05/23/20 Primary Care Physician: Macario Sinha MD [Primary Care Provider] - Please follow up with your Primary Care Physician in: 1-2 weeks Test Results: Test results from this visit will be discussed in further detail at your follow- up appointment, if applicable. Please Follow Up With: Bladimir Cortés DO When: 2 weeks Proposed Discharge Date: 06/06/20
--- NOTE | 2020-06-06 10:25 | PCM.DC.SUM ---
Discharge Date and Diagnosis - Problem List Patient Problems: Active and Suspected Problems (Last Updated 05/27/20 @ 13:[address] Jasen Stallings DO) COVID-19 (Acute) Thrombocytosis (Acute) Date of Admission: 05/27/20 Date of Discharge: 06/06/20 - Primary Discharge Diagnosis Acute Problems: Active Problems (Last Updated 05/27/20 @ 13:[address] Jasen Stallings DO) COVID-19 (Acute) Thrombocytosis (Acute)acute hypoxic respiratory failure Hospital Course and Treatment Imaging Results: Diagnostic Data Chest CTA 05/27/20 13:41 IMPRESSION: Multifocal bilateral groundglass infiltrates as described. This is in keeping with the patient''s history of Covid. Electronically Signed: Armando Villafuerte MD at 15:03 EST , Service support , Chest X-Ray 06/01/20 14:25 IMPRESSION: Progressive bilateral pulmonary infiltrates. Electronically Signed: Armando Villafuerte MD at 14:49 EST , Service support , pulmonology- Dr Cortés ID- Dr Heller Operations: None Procedures: None Summary of Care Provided: The patient is a 40 year old M with past medical history as outlined including hypertension was admitted through the ED on 05/27/2020 with a complaint of shortness of breath. His symptoms started on May 18 he had associated myalgia and fatigue. His PCP check for COVID-19 testing was positive on 18 May. He came to the hospital on 21 May and was sent home. However his symptoms were worsening so he came back to the ED on 05/27/2020. He was noted to be hypoxic so he was admitted and managed for acute hypoxic respiratory failure due to COVID-19 infection. He was started on IV dexamethasone. Patient's oxygen requirements gradually increased and he was up to 8 L of oxygen after about 4 days on admission. Was initially started on empiric antimicrobials for COVID-19 pneumonia. Pulmonology and ID were consulted as patient's symptoms were not improving and his oxygen requirements went up to a peak of 16 L of oxygen through AIR VO. He did complete a course of dexamethasone and remdesivir. Patient's oxygen requirements gradually improved and he was weaned down on oxygen to a kassi of 2 L. Hospital stay was also complicated by thrombocytosis with platelets trended up to the 800s. Hematology was consulted and per their recommendations, thrombocytosis was likely due to acute COVID-19 infection and they did not see need to start low-dose aspirin and recommended monitoring of the platelets. Patient remained stable and was discharged home on 06/06/2020. Patient qualify for home oxygen at 3 L as his oxygen level on room air with ambulation dropped to 83% and he required 3 L of oxygen to go up to the mid 90s. He is to follow-up with his primary care doctor and pulmonology was also counseled to remain in self-isolation till June 08, 2020 to complete a 21-day isolation since he was diagnosed. Patient seen and examined prior to discharge. He felt well and had no complaints. Review of systems otherwise negative. Labs and vitals reviewed. Home medication reviewed and reconciled. O/E: Vital Signs Temp Pulse Resp BP Pulse Ox 98.0 F 85 18 134/79 H 92 06/06/20 09:53 06/06/20 09:53 06/06/20 09:53 06/06/20 09:53 06/06/20 11:24 General: Alert, Oriented x3, Cooperative, No apparent distress HEENT: Atraumatic, PERRLA, EOMI, Normocephalic Oral: Moist Mucosa Neck: Supple, No JVD, Negative Carotid Bruits Lungs: Clear to auscultation, Normal air movement, - - on 2L of oxygen Cardiovascular: Regular rate, Regular Rhythm, Normal S1, Normal S2, No murmurs Abdomen: Bowel Sounds Present, Soft, Non Tender, Non-Distended, No Hepato-splenomegaly Extremities: No clubbing, No cyanosis, No edema, Capillary Refill Less than 3 Seconds Skin: No rashes, No breakdown Musculoskeletal: No Tenderness to Palpation of Joints or Extremities Lymphatic: No Cervical, Supraclavicular, or Inguinal Adenopathy Neurological: Cranial nerves II-XII grossly intact, Neuro grossly intact, Motor Exam 5/5 strength throughout Psych/Mental Status: Anxious, Alert and oriented to time, place, person, mood and affect Plan is for discharge home today. Of note, platelets have trended on 719 and he is to have subsequent follow-up CBCs to follow-up on his platelet level. Patient Problems: Active and Suspected Problems (Last Updated 05/27/20 @ 13:[address] Jasen Stallings, DO) COVID-19 (Acute) Thrombocytosis (Acute) - Physical Exam Vitals/I&O's: Vital Signs Temp Pulse Resp BP Pulse Ox 98.0 F 85 18 134/79 H 92 06/06/20 09:53 06/06/20 09:53 06/06/20 09:53 06/06/20 09:53 06/06/20 10:00 Oxygen Flow Rate (L/min) [ 3 AMBULATION with Oxygen] Oxygen Flow Rate (L/min) 2 Oxygen Delivery Method Room Air Weight: 187 lb 13.341 oz Body Mass Index (BMI) 32.2 Intake and Output for Last 24 Hours 06/04/20 06/05/20 06/06/20 23:59 23:59 23:59 Intake Total 1650 / 1650 1000 / 1000 300 / 300 Output Total 1600 / 1600 700 / 700 Balance 50 / 50 300 / 300 300 / 300 Laboratory Results 06/06/20 05:56: WBC 10.8, RBC 5.05, Hgb 14.5, Hct 42.0, MCV 83.2, MCH 28.7, MCHC 34.5, RDW Std Deviation 37.3, RDW Coeff of Barbi 12.4, Plt Count 719 H, MPV 9.4, Immature Gran % (Auto) 2.300 H, Neut % (Auto) 75.1 H, Lymph % (Auto) 13.8 L, [place] % (Auto) 8.2, Eos % (Auto) 0.2, Baso % (Auto) 0.4, Absolute Neuts (auto) 8.1 H, Absolute Lymphs (auto) 1.49, Nucleated RBC % 0 06/06/20 05:56: Sodium 133 L, Potassium 3.5, Chloride 98, Carbon Dioxide 27.0, Anion Gap 8, BUN 22 H, Creatinine 0.84, Estim Creat Clear Calc 95.93, Est GFR (MDRD) Af Amer 129, Est GFR (MDRD) Non-Af 106, BUN/Creatinine Ratio 26.2 H, Glucose 88, Calcium 8.8, Total Bilirubin 0.90, AST 20, ALT 94 H, Alkaline Phosphatase 48, Total Protein 7.2, Albumin 2.7 L, Globulin 4.5 H, Albumin/Globulin Ratio 0.6 L Current Medications Acetaminophen (Acetaminophen 325 Mg Tablet) 650 mg PO Q6H PRN PRN PRN Reason: Pain Score 1-10/Temp > 100.7 F Albuterol Sulfate (Albuterol Sulfate 8 Gm Inhaler (60 Puffs)) 2 puff INHALATION Q4H PRN PRN PRN Reason: SHORTNESS OF BREATH Last Admin: 06/01/20 09:59 Dose: 2 puff Documented by: Enoxaparin Sodium (Enoxaparin 40 Mg/0.4 Ml Syringe) 40 mg SC DAILY [facility] Last Admin: 06/06/20 09:51 Dose: 40 mg Documented by: Hydrochlorothiazide (Hydrochlorothiazide 25 Mg Tablet) 25 mg PO DAILY [facility] Last Admin: 06/06/20 09:51 Dose: 25 mg Documented by: Sodium Chloride () 250 mls @ 15 mls/hr IV .[id number] PRN PRN Reason: Saline Flush Ibuprofen (Ibuprofen 400 Mg Tablet) 400 mg PO Q4H PRN PRN PRN Reason: Pain Score 1-10/Temp > 100.7 F Lorazepam (Lorazepam 1 Mg Tablet) 1 mg PO Q6H PRN PRN PRN Reason: ANXIETY Last Admin: 06/06/20 09:51 Dose: 1 mg Documented by: Metoprolol Tartrate (Metoprolol Tartrate 100 Mg Tablet) 100 mg PO BID [facility] Last Admin: 06/06/20 09:51 Dose: 100 mg Documented by: Ondansetron HCl (Ondansetron 4 Mg/2 Ml Vial) 4 mg IV Q8H PRN PRN PRN Reason: NAUSEA/VOMITING Sodium Chloride (0.9% Saline Lock 10 Ml Syringe) 10 - 40 ml IV UD PRN PRN Reason: SALINE FLUSH Last Admin: 06/04/20 21:29 Dose: 10 ml Documented by: Sodium Chloride (Sodium Chloride 0.65% 1 Warren Warren.Btl) 2 spray NASAL BID PRN PRN PRN Reason: NASAL DRYNESS Zolpidem Tartrate (Zolpidem Tartrate 5 Mg Tablet) 5 mg PO QHS PRN PRN PRN Reason: INSOMNIA Last Admin: 06/05/20 23:06 Dose: 5 mg Documented by: Discharge Diet: Low fat/ Low Cholesterol Discharge Activity: Return to Normal Activity Weight Bearing Status: Weight bearing as tolerated Call your doctor if you observe: Fever of 101 or Higher, Shortness of breath, Dizziness, Fainting spells Home Medications: Medications to take at Discharge Hydrochlorothiazide [Hctz] 25 mg PO DAILY 05/23/20 Metoprolol Tartrate [Lopressor (beta harpreet)] 100 mg PO BID 05/23/20 Primary Care Physician: Macario Sinha MD [Primary Care Provider] - Please follow up with your Primary Care Physician in: 1-2 weeks Please Follow Up With: Bladimir Cortés DO When: 2 weeks Patient Instructions: Coronavirus Disease 2019 (COVID-19): Overview, Coronavirus Disease 2019 (COVID-19): Caring for Yourself or Others Disposition: Home Minutes spent on discharge:: 45 Patient Condition:: Stable Medical Necessity - Tobacco Use Smoking Status: Never smoker Meaningful Use Info Meaningful Use Diagnoses (Choose all that apply): None applicable Inpatient E&M: 83354 Disch Hosp
--- NOTE | 2020-06-06 11:50 | PCM.WORK.EX ---
Work/School Excuse Please excuse this person from:: Work From: 06/07/20 through: 06/11/20
[2020-06-07 11:40] LABS: Pathologist Review Reviewed
[2020-06-07 11:51] LABS: Pathologist Review Reviewed
--- NOTE | 2020-06-07 15:21 | CASEMGMT ---
DHARMESH CM DC PHONE CALL DC DATE: 06/06/20 DC DISPOSITION: Home DC DIAGNOSIS: SARS COVID 2 Attempted to call- call did not go through. Mark LATHAMN RN ACM
== END 2020-06-06 13:45 | disposition home or self-care (01) | DRG 177 ==
LOC: ED 10:28 → MS2 13:31
PROVIDERS: Internal Medicine Critical Care Medicine; Emergency Provider Emergency Medicine; PCP Family Medicine; Visit Provider Student in an Organized Health Care Education/Training Program
DX: U07.1 COVID-19 (principal); J12.82 Pneumonia due to coronavirus disease 2019; J96.01 Acute respiratory failure with hypoxia; D47.3 Essential (hemorrhagic) thrombocythemia; I10 Essential (primary) hypertension; R74.01 Elevation of levels of liver transaminase levels; E87.6 Hypokalemia; F41.9 Anxiety disorder, unspecified; E66.9 Obesity, unspecified; Z68.32 Body mass index [BMI] 32.0-32.9, adult
CPT/HCPCS: 36415; 71045; 71275; 80048; 80053; 80076; 83880; 84145; 85025; 85027; 85379; 85384; 86140; 87070; 87205; 87449; 93005; 94660; 94667; 94668; 97802; 99251; 99285; J7050; Q9967; A4216; G0463; J1940